=== PATIENT | male | born 1945 | race Caucasian/White ===

== ENCOUNTER 2021-02-06 16:11 | Emergency (ER) | payer MEDICARE ==
[2021-02-06 16:21] VITALS: RESP 18
[2021-02-06] MEDS ORDERED: ACETAMINOPHEN TAB 325 MG TAB PO STA (16:32)
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
[2021-02-06] MEDS ORDERED: SODIUM CHLORIDE 0.9% 500 ML 500 ML IV ONE (17:57)
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
--- NOTE | 2021-02-06 18:37 | XR ---
EXAMINATION TYPE: XR chest 2V DATE OF EXAM: 02/06/2021 COMPARISON: NONE HISTORY: Altered mental status TECHNIQUE: 2 views FINDINGS: Heart and mediastinum are normal. Lungs are clear. Diaphragm is normal. Bony thorax is inta ct. There is left axillary pacemaker. There are sternal wires. IMPRESSION: No active cardiopulmonary disease.
[2021-02-06 18:44] LABS: Partial Thromboplastin Time 24.8 sec (22.0-30.0); Prothrombin Time 10.3 sec (9.0-12.0)
[2021-02-06 18:58] LABS: ALT <6 U/L (4-49); AST 14 U/L (17-59); African American GFR (CKD) >90 (>60 ml/min/1.73 sqM); Albumin 3.7 g/dL (3.5-5.0); Alkaline Phosphatase 80 U/L (38-126); Anion Gap 7 mmol/L; Blood Urea Nitrogen 16 mg/dL (9-20); Calcium 9.1 mg/dL (8.4-10.2); Carbon Dioxide 27 mmol/L (22-30); Chloride 103 mmol/L (98-107); Glucose 117 mg/dL (74-99); Non-African American GFR(CKD) 89 (>60 ml/min/1.73 sqM); Potassium 4.2 mmol/L (3.5-5.1); Sodium 137 mmol/L (137-145); Total Bilirubin 0.2 mg/dL (0.2-1.3); Total Protein 5.9 g/dL (6.3-8.2)
[2021-02-06 19:01] LABS: Basophils # (A) 0.1 k/uL (0-0.2); Basophils % (A) 1 %; Eosinophils % (A) 1 %; HCT 36.9 % (39.0-53.0); HGB 11.9 gm/dL (13.0-17.5); Lymphocytes # (A) 0.6 k/uL (1.0-4.8); Lymphocytes % (A) 11 %; MCH 30.7 pg (25.0-35.0); MCHC 32.2 g/dL (31.0-37.0); MCV 95.4 fL (80.0-100.0); Mean Platelet Volume 7.1; Monocytes # (A) 0.2 k/uL (0-1.0); Monocytes % (A) 4 %; Neutrophils # (A) 4.6 k/uL (1.3-7.7); Neutrophils % (A) 81 %; Platelet Count 215 k/uL (150-450); RBC 3.87 m/uL (4.30-5.90); RDW 12.8 % (11.5-15.5); WBC 5.6 k/uL (3.8-10.6)
[2021-02-06] MEDS ORDERED: MORPHINE SULFATE 2 MG/ML SYRINGE IVP STA (19:38)
[2021-02-06 20:26] LABS: Appearance,Urine Clear (Clear); Bilirubin,Urine Negative (Negative); Blood,Urine Negative (Negative); Color,Urine Yellow; Glucose,Urine (UA) Negative (Negative); Ketones,Urine Trace (Negative); Leukocyte Esterase,Urine Negative (Negative); Nitrite,Urine Negative (Negative); PH, Urine 6.5 (5.0-8.0); Protein,Urine Negative (Negative); Specific Gravity,Urine 1.017 (1.001-1.035); Urobilinogen,Urine <2.0 mg/dL (<2.0)
[2021-02-06 21:32] VITALS: BP 112/74; PULSE 69; TEMP 98.3
== END 2021-02-06 21:25 | disposition home or self-care (01) ==
LOC: EC 16:11
DX: S01.01XA Laceration without foreign body of scalp, initial encounter (principal); E11.9 Type 2 diabetes mellitus without complications; I10 Essential (primary) hypertension; E78.5 Hyperlipidemia, unspecified; G30.9 Alzheimer's disease, unspecified; F02.80 Dementia in other diseases classified elsewhere, unspecified severity, without behavioral disturbance, psychotic disturbance, mood disturbance, and anxiety; F32.9 Major depressive disorder, single episode, unspecified; Z79.84 Long term (current) use of oral hypoglycemic drugs; Z79.899 Other long term (current) drug therapy; Z88.0 Allergy status to penicillin; Z88.1 Allergy status to other antibiotic agents; Z88.2 Allergy status to sulfonamides; Z88.6 Allergy status to analgesic agent; Z95.0 Presence of cardiac pacemaker; Z87.891 Personal history of nicotine dependence; W01.0XXA Fall on same level from slipping, tripping and stumbling without subsequent striking against object, initial encounter
CPT/HCPCS: 36415; 93005; 80053; 84484; 85025; 85610; 85730; 81003; 71046; 72125; 70450; 12002; 96374; 99285; J2270

== ENCOUNTER 2021-02-12 14:51 | Emergency (ER) | payer MEDICARE ==
[2021-02-12 15:09] VITALS: BP 117/68; PULSE 73; RESP 16; TEMP 97.8
[2021-02-12] MEDS ORDERED: SODIUM CHLORIDE 0.9% 1,000 ML IV STA (15:37)
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
[2021-02-12 17:01] LABS: Basophils # (A) 0.1 k/uL (0-0.2); Basophils % (A) 1 %; Eosinophils # (A) 0.1 k/uL (0-0.7); Eosinophils % (A) 2 %; HCT 42.9 % (39.0-53.0); HGB 13.6 gm/dL (13.0-17.5); Lymphocytes % (A) 21 %; MCH 29.8 pg (25.0-35.0); MCHC 31.7 g/dL (31.0-37.0); MCV 93.7 fL (80.0-100.0); Mean Platelet Volume 8.1; Monocytes # (A) 0.3 k/uL (0-1.0); Monocytes % (A) 5 %; Neutrophils # (A) 3.6 k/uL (1.3-7.7); Neutrophils % (A) 71 %; Platelet Count 284 k/uL (150-450); RBC 4.58 m/uL (4.30-5.90); RDW 12.3 % (11.5-15.5); WBC 5.1 k/uL (3.8-10.6)
[2021-02-12 17:12] LABS: ALT <6 U/L (4-49); AST 14 U/L (17-59); African American GFR (CKD) >90 (>60 ml/min/1.73 sqM); Albumin 3.9 g/dL (3.5-5.0); Alkaline Phosphatase 84 U/L (38-126); Anion Gap 5 mmol/L; Blood Urea Nitrogen 14 mg/dL (9-20); Calcium 9.2 mg/dL (8.4-10.2); Carbon Dioxide 28 mmol/L (22-30); Chloride 106 mmol/L (98-107); Glucose 151 mg/dL (74-99); Non-African American GFR(CKD) 89 (>60 ml/min/1.73 sqM); Potassium 4.2 mmol/L (3.5-5.1); Sodium 139 mmol/L (137-145); Total Bilirubin 0.1 mg/dL (0.2-1.3); Total Protein 6.3 g/dL (6.3-8.2)
--- NOTE | 2021-02-12 17:39 | CT ---
EXAMINATION TYPE: CT brain francineine wo con DATE OF EXAM: 02/12/2021 COMPARISON: 02/06/2021 HISTORY: Recurrent falls. CT DLP: 1261.2 mGycm Automated exposure control for dose reduction was used. There is cerebral cortical atrophy. There is no mass effect nor midline shift. There is no sign of in tracranial hemorrhage. The calvarium is intact. There are skin lucio in the posterior scalp. Cervical vertebra show some straightening. There is degenerative disc space narrowing and spur format ion from C3 to C7. There is vertebroplasty at T1 and T2 vertebra. There is no significant loss of hei ght. Facet joints are intact. Prevertebral soft tissues are intact. IMPRESSION: Cerebral atrophy. No acute intracranial abnormality. No change compared to recent exam. Cervical multilevel spondylotic changes. No fracture. No change compared to old exam.
--- NOTE | 2021-02-12 17:44 | XR ---
EXAMINATION TYPE: XR ribs RT w pa chest xray DATE OF EXAM: 02/12/2021 COMPARISON: 02/06/2021 HISTORY: Fall. Pain. TECHNIQUE: 5 views FINDINGS: There is no heart failure nor confluent pneumonic infiltrate. Costophrenic angles are clear . There are no hilar masses. There is left axillary pacemaker. There are sternal wires. There is no pleural effusion or pneumothorax. There is nondisplaced fracture lateral right ninth rib. IMPRESSION: No active cardiopulmonary disease. There is an acute fracture lateral right ninth rib.
[2021-02-12] MEDS ORDERED: LIDOCAINE 5% PATCH TOPICAL STA (17:53)
[2021-02-12] MEDS ORDERED: MORPHINE SULFATE 4 MG/ML SYRINGE IVP STA (18:10)
== END 2021-02-12 19:45 | disposition home or self-care (01) ==
LOC: EC 14:51
DX: S22.31XA Fracture of one rib, right side, initial encounter for closed fracture (principal); R29.6 Repeated falls; I10 Essential (primary) hypertension; E11.9 Type 2 diabetes mellitus without complications; E78.5 Hyperlipidemia, unspecified; F03.90 Unspecified dementia, unspecified severity, without behavioral disturbance, psychotic disturbance, mood disturbance, and anxiety; F32.9 Major depressive disorder, single episode, unspecified; G89.29 Other chronic pain; Z79.899 Other long term (current) drug therapy; Z87.891 Personal history of nicotine dependence; Z88.0 Allergy status to penicillin; Z88.1 Allergy status to other antibiotic agents; Z88.2 Allergy status to sulfonamides; Z88.6 Allergy status to analgesic agent; Z95.0 Presence of cardiac pacemaker; W18.30XA Fall on same level, unspecified, initial encounter; Y92.002 Bathroom of unspecified non-institutional (private) residence as the place of occurrence of the external cause
CPT/HCPCS: 93005; 80053; 84484; 85025; 71101; 72125; 70450; 99284; 96374; 96361 ×3; J2270

== ENCOUNTER 2021-04-04 17:33 | Observation (INO) | payer MEDICARE ==
[2021-04-04 17:47] LABS: Glucose,Whole Blood 143 mg/dL (75-99)
[2021-04-04] MEDS: SODIUM CHLORIDE 0.9% 500 ML 500 ML IV SCH ×2 (18:16→19:00)
[2021-04-04 18:23] LABS: Appearance,Urine Clear (Clear); Bilirubin,Urine Negative (Negative); Blood,Urine Trace (Negative); Color,Urine Yellow; Glucose,Urine (UA) Negative (Negative); Ketones,Urine 2+ (Negative); Leukocyte Esterase,Urine Negative (Negative); Mucus,Urine Many /hpf; Nitrite,Urine Negative (Negative); PH, Urine 5.5 (5.0-8.0); Protein,Urine 1+ (Negative); RBC,Urine <1 /hpf (0-5); Specific Gravity,Urine 1.025 (1.001-1.035); WBC,Urine 2 /hpf (0-5)
[2021-04-04 18:24] LABS: Chloride 109 mmol/L (98-107)
[2021-04-04 18:27] LABS: ALT 8 U/L (4-49); AST 24 U/L (17-59); African American GFR (CKD) >90 (>60 ml/min/1.73 sqM); Albumin 4.5 g/dL (3.5-5.0); Alkaline Phosphatase 113 U/L (38-126); Anion Gap 15 mmol/L; Blood Urea Nitrogen 19 mg/dL (9-20); Calcium 9.7 mg/dL (8.4-10.2); Carbon Dioxide 17 mmol/L (22-30); Glucose 151 mg/dL (74-99); Non-African American GFR(CKD) 87 (>60 ml/min/1.73 sqM); Potassium 4.3 mmol/L (3.5-5.1); Sodium 141 mmol/L (137-145); Total Bilirubin 0.8 mg/dL (0.2-1.3); Total Protein 7.1 g/dL (6.3-8.2)
[2021-04-04 18:30] LABS: Partial Thromboplastin Time 23.9 sec (22.0-30.0); Prothrombin Time 10.9 sec (9.0-12.0)
[2021-04-04 18:57] LABS: Basophils % (A) 1 %; Eosinophils % (A) 0 %; HCT 43.3 % (39.0-53.0); HGB 14.3 gm/dL (13.0-17.5); Lymphocytes # (A) 0.7 k/uL (1.0-4.8); Lymphocytes % (A) 9 %; MCH 28.7 pg (25.0-35.0); Mean Platelet Volume 7.8; Monocytes # (A) 0.3 k/uL (0-1.0); Monocytes % (A) 4 %; Neutrophils # (A) 6.9 k/uL (1.3-7.7); Neutrophils % (A) 86 %; Platelet Count 288 k/uL (150-450); RBC 4.99 m/uL (4.30-5.90); RDW 13.8 % (11.5-15.5)
[2021-04-04 18:58] LABS: MCV 86.9 fL (80.0-100.0)
--- NOTE | 2021-04-04 18:59 | XR ---
EXAMINATION TYPE: XR chest 2V DATE OF EXAM: 04/04/2021 COMPARISON: 02/12/2021 HISTORY: Fever TECHNIQUE: 3 views FINDINGS: Heart is normal. Lungs are clear of infiltrate. There are sternal wires. There is left axil jovi pacemaker. There is no evidence of pleural effusion. Bony thorax is intact IMPRESSION: No active cardiopulmonary disease. No adverse change.
--- NOTE | 2021-04-04 19:50 | ED ---
General Adult HPI - General Chief complaint: Altered Mental Status Stated complaint: Altered Mental Status Time Seen by Provider: 04/04/21 17:40 Source: EMS, RN notes reviewed, old records reviewed Mode of arrival: EMS Limitations: altered mental status - History of Present Illness Initial comments: This is a 76-year-old male who comes emergency Department and is unable to give us any history and there is no family member or caregiver with the patient. He was sent in by family according to the report received because he is more altered and more confused than his baseline. According to report his is normally confused but he seems to be worse to family today. There is no report of any fever or difficulty breathing there's no report of any vomiting or diarrhea. No report of any injury or trauma. - Related Data Home Medications Medication Instructions Recorded Confirmed Atorvastatin [Lipitor] 10 mg PO HS 02/06/21 04/04/21 FLUoxetine HCL [PROzac] 20 mg PO DAILY 02/06/21 04/04/21 Omeprazole [PriLOSEC] 20 mg PO BID PRN 02/06/21 04/04/21 Tamsulosin HCl [Flomax] 0.4 mg PO DAILY 02/06/21 04/04/21 busPIRone HCL 15 mg PO BID 02/06/21 04/04/21 methocarbamoL [Methocarbamol] 750 mg PO TID PRN 02/06/21 04/04/21 Ondansetron HCl [Zofran] 4 mg PO Q8H PRN 02/12/21 04/04/21 Buprenorphine [Butrans 15 MCG/HR] 1 patch TRANSDERM Q7D 04/04/21 04/04/21 QUEtiapine [SEROquel] 50 mg PO HS 04/04/21 04/04/21 oxyCODONE-APAP 5-325MG [Percocet 1 tab PO Q6HR 04/04/21 04/04/21 5-325 mg] traZODone HCL [Desyrel] 50 mg PO HS 04/04/21 04/04/21 Allergies Allergy/AdvReac Type Severity Reaction Status Date / Time celecoxib [From Celebrex] Allergy Unknown Verified 04/04/21 20:00 erythromycin base Allergy Unknown Verified 04/04/21 20:00 iron Allergy Unknown Verified 04/04/21 20:00 nitroglycerin Allergy Unknown Verified 04/04/21 20:00 [From Nitro-Bid] penicillin G benethamine Allergy Unknown Verified 04/04/21 20:00 pentazocine [From Talwin] Allergy Unknown Verified 04/04/21 20:00 sulfamethoxazole Allergy Unknown Verified 04/04/21 20:00 [From Bactrim] trimethoprim [From Bactrim] Allergy Unknown Verified 04/04/21 20:00 Review of Systems ROS Statement: Those systems with pertinent positive or pertinent negative responses have been documented in the HPI. ROS Other: All systems not noted in ROS Statement are negative. Past Medical History Past Medical History: Dementia, Diabetes Mellitus, Hyperlipidemia, Hypertension Additional Past Medical History / Comment(s): back pain History of Any Multi-Drug Resistant Organisms: None Reported Past Surgical History: Back Surgery, Cholecystectomy, Pacemaker Past Psychological History: Depression Smoking Status: Former smoker Past Alcohol Use History: None Reported Past Drug Use History: None Reported General Exam - General Exam Comments Initial Comments: GENERAL: Patient is well-developed and well-nourished. Patient is nontoxic and well- hydrated and is in no acute. ENT: Neck is soft and supple. No significant lymphadenopathy is noted. Oropharynx is clear. Moist mucous membranes. Neck has full range of motion without elicit ing any pain. EYES: The sclera were anicteric and conjunctiva were pink and moist. Extraocular m ovements were intact and pupils were equal round and reactive to light. Eyelids were unremarkable. PULMONARY: Unlabored respirations. Good breath sounds bilaterally. No audible rales rhonchi or wheezing was noted. CARDIOVASCULAR: There is a regular rate and rhythm without any murmurs gallops or rubs. ABDOMEN: Soft and nontender with normal bowel sounds. SKIN: Skin is clear with no lesions or rashes and otherwise unremarkable. NEUROLOGIC: Patient is alert and oriented 1. Cranial nerves II through XII are grossly intact. MUSCULOSKELETAL: Normal extremities with adequate strength and full range of motion. LYMPHATICS: No significant lymphadenopathy is noted PSYCHIATRIC: Unable to assess Limitations: altered mental status Course Vital Signs 04/04/21 04/04/21 04/04/21 17:36 19:00 20:00 Temperature 99 F 98.2 F Pulse Rate 74 97 72 Respiratory 18 18 18 Rate Blood Pressure 139/98 144/95 132/84 O2 Sat by Pulse 95 97 97 Oximetry Medical Decision Making - Medical Decision Making Patient's EKG shows sinus rhythm with occasional PVC at 76 bpm PA interval 230 QRS is 72 QT interval 392 QTC is 441. Patient's EKG shows no ST segment elevation or depression. Dr. yusuf agreed to admit the patient admitted the patient wrote admitting orders. No family ever arrived or called in to give us any further history. - Lab Data Result diagrams: 04/04/21 18:04 04/04/21 18:04 Lab Results 04/04/21 04/04/21 04/04/21 Range/Units 17:47 18:04 18:04 WBC 8.0 (3.8-10.6) k/uL RBC 4.99 (4.30-5.90) m/uL Hgb 14.3 (13.0-17.5) gm/dL Hct 43.3 (39.0-53.0) % MCV 86.9 D (80.0-100.0) fL MCH 28.7 (25.0-35.0) pg MCHC 33.0 (31.0-37.0) g/dL RDW 13.8 (11.5-15.5) % Plt Count 288 (150-450) k/uL MPV 7.8 Neutrophils % 86 % Lymphocytes % 9 % Monocytes % 4 % Eosinophils % 0 % Basophils % 1 % Neutrophils # 6.9 (1.3-7.7) k/uL Lymphocytes # 0.7 L (1.0-4.8) k/uL Monocytes # 0.3 (0-1.0) k/uL Eosinophils # 0.0 (0-0.7) k/uL Basophils # 0.0 (0-0.2) k/uL PT 10.9 (9.0-12.0) sec INR 1.0 (<1.2) APTT 23.9 (22.0-30.0) sec Sodium (137-145) mmol/L Potassium (3.5-5.1) mmol/L Chloride (98-107) mmol/L Carbon Dioxide (22-30) mmol/L Anion Gap mmol/L BUN (9-20) mg/dL Creatinine (0.66-1.25) mg/dL Est GFR (CKD-EPI)AfAm (>60 ml/min/1.73 sqM) Est GFR (CKD-EPI)NonAf (>60 ml/min/1.73 sqM) Glucose (74-99) mg/dL POC Glucose (mg/dL) 143 H (75-99) mg/dL POC Glu [employer] Management Intern Waleska Douglas Plasma Lactic Acid Robbie (0.7-2.0) mmol/L Calcium (8.4-10.2) mg/dL Total Bilirubin (0.2-1.3) mg/dL AST (17-59) U/L ALT (4-49) U/L Alkaline Phosphatase (38-126) U/L Total Protein (6.3-8.2) g/dL Albumin (3.5-5.0) g/dL Urine Color Urine Appearance (Clear) Urine pH (5.0-8.0) Ur Specific [place] (1.001-1.035) Urine Protein (Negative) Urine Glucose (UA) (Negative) Urine Ketones (Negative) Urine Blood (Negative) Urine Nitrite (Negative) Urine Bilirubin (Negative) Urine Urobilinogen (<2.0) mg/dL Ur Leukocyte Esterase (Negative) Urine RBC (0-5) /hpf Urine WBC (0-5) /hpf Urine Mucus (None) /hpf 04/04/21 04/04/21 04/04/21 Range/Units 18:04 18:04 18:04 WBC (3.8-10.6) k/uL RBC (4.30-5.90) m/uL Hgb (13.0-17.5) gm/dL Hct (39.0-53.0) % MCV (80.0-100.0) fL MCH (25.0-35.0) pg MCHC (31.0-37.0) g/dL RDW (11.5-15.5) % Plt Count (150-450) k/uL MPV Neutrophils % % Lymphocytes % % Monocytes % % Eosinophils % % Basophils % % Neutrophils # (1.3-7.7) k/uL Lymphocytes # (1.0-4.8) k/uL Monocytes # (0-1.0) k/uL Eosinophils # (0-0.7) k/uL Basophils # (0-0.2) k/uL PT (9.0-12.0) sec INR (<1.2) APTT (22.0-30.0) sec Sodium 141 (137-145) mmol/L Potassium 4.3 (3.5-5.1) mmol/L Chloride 109 H (98-107) mmol/L Carbon Dioxide 17 L (22-30) mmol/L Anion Gap 15 mmol/L BUN 19 (9-20) mg/dL Creatinine 0.80 (0.66-1.25) mg/dL Est GFR (CKD-EPI)AfAm >90 (>60 ml/min/1.73 sqM) Est GFR (CKD-EPI)NonAf 87 (>60 ml/min/1.73 sqM) Glucose 151 H (74-99) mg/dL POC Glucose (mg/dL) (75-99) mg/dL POC Glu Sports Management Intern ID Plasma Lactic Acid Robbie 1.8 (0.7-2.0) mmol/L Calcium 9.7 (8.4-10.2) mg/dL Total Bilirubin 0.8 (0.2-1.3) mg/dL AST 24 (17-59) U/L ALT 8 (4-49) U/L Alkaline Phosphatase 113 (38-126) U/L Total Protein 7.1 (6.3-8.2) g/dL Albumin 4.5 (3.5-5.0) g/dL Urine Color Yellow Urine Appearance Clear (Clear) Urine pH 5.5 (5.0-8.0) Ur Specific [place] 1.025 (1.001-1.035) Urine Protein 1+ H (Negative) Urine Glucose (UA) Negative (Negative) Urine Ketones 2+ H (Negative) Urine Blood Trace H (Negative) Urine Nitrite Negative (Negative) Urine Bilirubin Negative (Negative) Urine Urobilinogen 2.0 (<2.0) mg/dL Ur Leukocyte Esterase Negative (Negative) Urine RBC <1 (0-5) /hpf Urine WBC 2 (0-5) /hpf Urine Mucus Many H (None) /hpf Disposition Clinical Impression: Altered mental status Disposition: ADMITTED IP TO THIS [facility] Referrals: Elias Cai DO [Primary Care Provider] - 1-2 days Time of Disposition: 20:34
--- NOTE | 2021-04-04 20:01 | CT ---
EXAMINATION TYPE: CT brain wo con DATE OF EXAM: 04/04/2021 COMPARISON: 02/12/2021 HISTORY: Recurrent falls. Altered mental status. CT DLP: 1141.4 mGycm Automated exposure control for dose reduction was used. There is cerebral cortical atrophy. There is no mass effect nor midline shift. There is no sign of in tracranial hemorrhage. Calvarium is intact. The skull base is intact. There is normal aeration of the mastoid sinuses. IMPRESSION: Cerebral atrophy. No acute intracranial abnormality.
[2021-04-04] MEDS ORDERED: SODIUM CHLORIDE 0.9% 1,000 ML IV ONE (20:34)
[2021-04-04 21:50] LABS: Glucose,Whole Blood 116 mg/dL (75-99)
[2021-04-04] MEDS: INSULIN ASPART (NovoLOG) 100 UNIT/ML VIAL SQ SCH (21:50)
[2021-04-04] MEDS ORDERED: NON FORMULARY DRUG (Buprenorphine [Butrans 15 Mcg/Hr] 15 MCG/HOUR Patch) TRANSDERM SCH (23:15)
[2021-04-05] MEDS: QUEtiapine 50 MG TAB PO SCH ×2 (00:06→21:26)
[2021-04-05 07:23] LABS: Glucose,Whole Blood 106 mg/dL (75-99)
[2021-04-05] MEDS: INSULIN ASPART (NovoLOG) 100 UNIT/ML VIAL SQ SCH ×4 (08:06→21:25)
[2021-04-05] MEDS: FLUoxetine HCL 20 MG CAP PO SCH (08:39)
[2021-04-05] MEDS: busPIRone HCl 5 MG TAB PO SCH ×2 (08:39→21:26)
[2021-04-05] MEDS: TAMSULOSIN 0.4 MG CAP.ER.24H PO SCH (08:39)
[2021-04-05] MEDS ORDERED: PANTOPRAZOLE 40 MG TABLET PO PRN (11:19)
[2021-04-05 11:49] LABS: Glucose,Whole Blood 116 mg/dL (75-99)
--- NOTE | 2021-04-05 11:54 | P.HPIM ---
History of Present Illness Patient is a 69-year-old the male was brought in by family members because of altered mental status and confusion. Patient is alert oriented 1. Patient is significantly confused. Was also having visual hallucinations. Patient is on multiple medications that can cause confusion including opiates Percocet, Seroquel, trazodone, methocarbamol) or phone. Patient's Percocet was discontinued last night without any signs or symptoms of opiate withdrawal are also discontinue off on trazodone as well. There is no evidence of infection at this time patient doesn't have any leukocytosis no fever urinalysis is not significant for infection chest x-ray did not show any pneumonia. Patient was comparing of pain between the shoulder blades and upon palpation patient does have right upper quadrant tenderness because of which I'll obtain ultrasound of the liver, liver enzymes are essentially within normal limits. REVIEW OF SYSTEMS: Not a reliable historian because of his confusion, rest of the review of systems all negative except those mentioned above PHYSICAL EXAMINATION: GENERAL: The patient is alert and oriented x1, not in any acute distress. Well developed, well nourished. HEENT: Pupils are round and equally reacting to light. EOMI. No scleral icterus. No conjunctival pallor. Normocephalic, atraumatic. No pharyngeal erythema. No thyromegaly. CARDIOVASCULAR: S1 and S2 present. No murmurs, rubs, or gallops. PULMONARY: Chest is clear to auscultation, no wheezing or crackles. ABDOMEN: Soft, mild tenderness in the right upper quadrant nondistended, normoactive bowel sounds. No palpable organomegaly. MUSCULOSKELETAL: No joint swelling or deformity. EXTREMITIES: No cyanosis, clubbing, or pedal edema. NEUROLOGICAL: Confused, limited, Gross neurological examination did not reveal any focal deficits. SKIN: No rashes. Assessment and plan 1 altered mental status secondary toxic encephalopathy from multiple medications those medications were discontinued will watch for any opiate withdrawals. Opiate withdrawals are not life-threatening because of which I'm this can urine opiates at this time. Patient will be started on Toradol for pain patient is also on GI prophylaxis -Hyperlipidemia -Benign prostatic hypertrophy -Right upper quadrant abdominal pain we'll obtain ultrasound of the gallbladder to rule out any cholelithiasis -Depression DVT prophylaxis: Lovenox Past Medical History Past Medical History: Dementia, Diabetes Mellitus, Hyperlipidemia, Hypertension Additional Past Medical History / Comment(s): back pain History of Any Multi-Drug Resistant Organisms: None Reported Past Surgical History: Back Surgery, Cholecystectomy, Pacemaker Additional Past Surgical History / Comment(s): right hand surgery from work injury, samiraaker in 2018 Past Anesthesia/Blood Transfusion Reactions: No Reported Reaction Type of Cardiac Device: Permanent Pacemaker Device Placement Date:: 2017 Past Psychological History: Anxiety, Depression Smoking Status: Former smoker Past Alcohol Use History: None Reported Past Drug Use History: Marijuana Additional Drug Use History / Comment(s): marijuana 2 gummies daily or bid (20- 40mg daily) Medications and Allergies Home Medications Medication Instructions Recorded Confirmed Type Atorvastatin [Lipitor] 10 mg PO HS 02/06/21 04/04/21 History FLUoxetine HCL [PROzac] 20 mg PO DAILY 02/06/21 04/04/21 History Omeprazole [PriLOSEC] 20 mg PO BID PRN 02/06/21 04/04/21 History Tamsulosin HCl [Flomax] 0.4 mg PO DAILY 02/06/21 04/04/21 History busPIRone HCL 15 mg PO BID 02/06/21 04/04/21 History methocarbamoL [Methocarbamol] 750 mg PO TID PRN 02/06/21 04/04/21 History Ondansetron HCl [Zofran] 4 mg PO Q8H PRN 02/12/21 04/04/21 History Buprenorphine [Butrans 15 MCG/HR] 1 patch TRANSDERM Q7D 04/04/21 04/04/21 History QUEtiapine [SEROquel] 50 mg PO HS 04/04/21 04/04/21 History oxyCODONE-APAP 5-325MG [Percocet 1 tab PO Q6HR 04/04/21 04/04/21 History 5-325 mg] traZODone HCL [Desyrel] 50 mg PO HS 04/04/21 04/04/21 History Allergies Allergy/AdvReac Type Severity Reaction Status Date / Time celecoxib [From Celebrex] Allergy Unknown Verified 04/04/21 20:00 erythromycin base Allergy Unknown Verified 04/04/21 20:00 iron Allergy Unknown Verified 04/04/21 20:00 nitroglycerin Allergy Unknown Verified 04/04/21 20:00 [From Nitro-Bid] penicillin G benethamine Allergy Unknown Verified 04/04/21 20:00 pentazocine [From Talwin] Allergy Unknown Verified 04/04/21 20:00 sulfamethoxazole Allergy Unknown Verified 04/04/21 20:00 [From Bactrim] trimethoprim [From Bactrim] Allergy Unknown Verified 04/04/21 20:00 Physical Exam Vitals: Vital Signs Temp Pulse Pulse Resp BP BP Pulse Ox 04/05/21 08:16 97.9 F 64 18 136/67 100 04/05/21 02:00 97.0 F L 61 18 131/72 98 04/04/21 23:23 97.7 F 73 20 149/79 97 04/04/21 22:25 99.3 F 87 20 137/77 96 04/04/21 21:00 87 18 137/71 99 04/04/21 20:00 98.2 F 72 18 132/84 97 04/04/21 19:00 97 18 144/95 97 04/04/21 17:36 99 F 74 18 139/98 95 Intake and Output 04/04/21 04/05/21 04/05/21 22:59 06:59 14:59 Intake Total 200 Output Total 35 Balance -35 200 Intake: Oral 200 Output: Urine 35 Straight 35 Other: # Voids 2 # Bowel Movements 1 Weight 55.474 kg 55.474 kg Results CBC & Chem 7: 04/04/21 18:04 04/04/21 18:04 Labs: Abnormal Lab Results - Last 24 Hours (Table) 04/04/21 04/04/21 04/04/21 Range/Units 17:47 18:04 18:04 Lymphocytes # 0.7 L (1.0-4.8) k/uL Chloride (98-107) mmol/L Carbon Dioxide (22-30) mmol/L Glucose (74-99) mg/dL POC Glucose (mg/dL) 143 H (75-99) mg/dL Urine Protein 1+ H (Negative) Urine Ketones 2+ H (Negative) Urine Blood Trace H (Negative) Urine Mucus Many H (None) /hpf 04/04/21 04/04/21 04/05/21 Range/Units 18:04 21:48 07:20 Lymphocytes # (1.0-4.8) k/uL Chloride 109 H (98-107) mmol/L Carbon Dioxide 17 L (22-30) mmol/L Glucose 151 H (74-99) mg/dL POC Glucose (mg/dL) 116 H 106 H (75-99) mg/dL Urine Protein (Negative) Urine Ketones (Negative) Urine Blood (Negative) Urine Mucus (None) /hpf 04/05/21 Range/Units 11:36 Lymphocytes # (1.0-4.8) k/uL Chloride (98-107) mmol/L Carbon Dioxide (22-30) mmol/L Glucose (74-99) mg/dL POC Glucose (mg/dL) 116 H (75-99) mg/dL Urine Protein (Negative) Urine Ketones (Negative) Urine Blood (Negative) Urine Mucus (None) /hpf Thrombosis Risk Factor Assmnt - Choose All That Apply Each Risk Factor Represents 3 Points: Age 75 years or older Thrombosis Risk Factor Assessment Total Risk Factor Score: 3 Thrombosis Risk Factor Assessment Level: Moderate Risk
[2021-04-05] MEDS: KETOROLAC 15 MG/ML 1 ML VIAL IVP PRN (13:45)
--- NOTE | 2021-04-05 15:10 | US ---
EXAMINATION TYPE: US gallbladder DATE OF EXAM: 04/05/2021 COMPARISON: NONE CLINICAL HISTORY: pain ruq. patient states history of kidney stones. Abdominal pain EXAM MEASUREMENTS: Liver Length: 12.7 cm CBD: 0.5 cm Right Kidney: 9.4 x 4.6 x 4.4 cm *technical limitations due to large amount of overlying bowel content Pancreas: Obscured by bowel gas Liver: limited evaluation, only seen intercostally Gallbladder: unable to visualize Evidence for sonographic Jernigan's sign: no CBD: wnl Right Kidney: probable cystic areas, largest = 2.6 x 3.5 x 2.4cm Suboptimal evaluation of pancreas on initial images due to shadowing from overlying bowel gas. Visual ized liver shows no worrisome mass. Entire liver could not be imaged due to high positioning in the l ower thorax. Gallbladder not distinctly visualized. No intrahepatic or extrahepatic biliary dilatatio n noted. Cortical thinning right kidney with 1.5 cm round anechoic to hypoechoic lesion favoring simp le thin-walled cyst. Additional oval hypoechoic anechoic 2.6 x 3.5 cm lesion noted favoring thin-wall ed cyst. No gross right-sided hydronephrosis. IMPRESSION: Suboptimal study. No biliary dilatation noted. If concern for acute cholecystitis persis ts further investigation with HIDA scan may be warranted.
[2021-04-05 17:15] LABS: Glucose,Whole Blood 91 mg/dL (75-99)
[2021-04-05] MEDS ORDERED: MORPHINE SULFATE 4 MG/ML SYRINGE IVP STA (19:42)
[2021-04-05 20:16] LABS: Glucose,Whole Blood 135 mg/dL (75-99)
[2021-04-05] MEDS: ATORVASTATIN 10 MG TAB PO SCH (21:26)
[2021-04-06] MEDS: KETOROLAC 15 MG/ML 1 ML VIAL IVP PRN ×3 (04:45→18:04)
[2021-04-06 07:25] LABS: Glucose,Whole Blood 85 mg/dL (75-99)
[2021-04-06] MEDS: INSULIN ASPART (NovoLOG) 100 UNIT/ML VIAL SQ SCH ×4 (07:33→23:13)
[2021-04-06] MEDS: busPIRone HCl 5 MG TAB PO SCH ×2 (08:11→21:01)
[2021-04-06] MEDS: FLUoxetine HCL 20 MG CAP PO SCH (08:11)
[2021-04-06] MEDS: TAMSULOSIN 0.4 MG CAP.ER.24H PO SCH ×2 (08:11→21:01)
[2021-04-06 11:57] LABS: Glucose,Whole Blood 156 mg/dL (75-99)
[2021-04-06 14:26] VITALS: BMI 19.1
[2021-04-06 17:37] LABS: Glucose,Whole Blood 110 mg/dL (75-99)
[2021-04-06 20:29] LABS: Glucose,Whole Blood 122 mg/dL (75-99)
--- NOTE | 2021-04-06 20:50 | PN ---
PROGRESS NOTE DATE OF SERVICE: 04/06/2021. This 76-year-old gentleman who was admitted with change in mental status, thought to be multifactorial, is being closely monitored. Medication has been adjusted at this time. The patient also had a gallbladder ultrasound today which showed no biliary dilatation, but suboptimal. No chest pain. No palpitations. No fever. PHYSICAL EXAMINATION: Alert and oriented x2. Pulse 90, blood pressure 131/74, respiration 18, temperature 97.8, pulse ox 99% on room air. HEENT: Conjunctivae normal. NECK: No jugular venous distention. CARDIOVASCULAR: S1, S2 muffled. RESPIRATION: Breath sounds diminished at the bases. A few scattered rhonchi. ABDOMEN: Soft, non-tender. LEGS: No edema. No swelling. NERVOUS SYSTEM: No focal deficit. LABS: CO2 is 17. UA noted. CT of the brain shows cerebral atrophy. ASSESSMENT: 1. Change in mental status, acute metabolic encephalopathy, multifactorial, possibly medication-induced. 2. Hyperlipidemia. 3. Benign prostatic hypertrophy. 4. Right upper quadrant abdominal pain. 5. Depression. 6. Elevated random glucose. RECOMMENDATIONS AND DISCUSSION: In this 76-year-old gentleman who presented with multiple complex medical issues, we will monitor the patient closely, continue the current medications, continue symptomatic treatment. Adjust the medications further. Guarded prognosis. Further recommendations to follow. PT/OT evaluation. MMDUSTINL / YAEL: [id number] /
[2021-04-06] MEDS: ATORVASTATIN 10 MG TAB PO SCH (21:01)
[2021-04-06] MEDS: QUEtiapine 50 MG TAB PO SCH (21:01)
[2021-04-07] MEDS: KETOROLAC 15 MG/ML 1 ML VIAL IVP PRN ×3 (05:26→20:09)
[2021-04-07 06:55] LABS: Basophils % (A) 1 %; Eosinophils # (A) 0.2 k/uL (0-0.7); Eosinophils % (A) 4 %; HCT 33.5 % (39.0-53.0); Lymphocytes # (A) 1.6 k/uL (1.0-4.8); Lymphocytes % (A) 32 %; MCH 29.1 pg (25.0-35.0); MCHC 32.6 g/dL (31.0-37.0); MCV 89.2 fL (80.0-100.0); Mean Platelet Volume 7.8; Monocytes # (A) 0.3 k/uL (0-1.0); Monocytes % (A) 5 %; Neutrophils # (A) 2.8 k/uL (1.3-7.7); Neutrophils % (A) 56 %; Platelet Count 207 k/uL (150-450); RBC 3.75 m/uL (4.30-5.90); RDW 13.9 % (11.5-15.5)
[2021-04-07 07:05] LABS: HGB 10.9 gm/dL (13.0-17.5)
[2021-04-07 07:22] LABS: Glucose,Whole Blood 95 mg/dL (75-99)
[2021-04-07] MEDS: INSULIN ASPART (NovoLOG) 100 UNIT/ML VIAL SQ SCH ×4 (08:34→21:00)
[2021-04-07] MEDS: busPIRone HCl 5 MG TAB PO SCH ×2 (09:23→20:16)
[2021-04-07] MEDS: TAMSULOSIN 0.4 MG CAP.ER.24H PO SCH ×2 (09:23→20:16)
[2021-04-07] MEDS: FLUoxetine HCL 20 MG CAP PO SCH (09:23)
[2021-04-07 10:59] LABS: African American GFR (CKD) 95.1 (60.0-200.0); Anion Gap 9.1 mmol/L (4.00-12.00); BUN/Creat Ratio 24.44 Ratio (12.00-20.00); Calcium 8.3 mg/dL (8.7-10.3); Carbon Dioxide 21.9 mmol/L (21.6-31.8); Non-African American GFR(CKD) 82.1 (60.0-200.0); Potassium 4.1 mmol/L (3.5-5.5)
[2021-04-07 11:41] LABS: Glucose,Whole Blood 122 mg/dL (75-99)
[2021-04-07] MEDS: traMADol 50 MG TAB PO PRN ×2 (12:41→20:12)
[2021-04-07 17:16] LABS: Glucose,Whole Blood 109 mg/dL (75-99)
--- NOTE | 2021-04-07 19:23 | PN ---
PROGRESS NOTE DATE OF SERVICE: 04/07/2021 This is a 76-year-old gentleman admitted with change in mental status and acute metabolic insult is improving significantly. The patient has asked for more pain medication. No chest pain. No palpitations. No fever. PHYSICAL EXAMINATION: Alert and oriented x3. Pulse 70, blood pressure 123/70, respiration 17, temperature 98.1, pulse ox 97% on room air. HEENT: Conjunctivae normal. NECK: No jugular venous distention. CARDIOVASCULAR: S1, S2 muffled. RESPIRATION: Breath sounds diminished at the bases. ABDOMEN: Soft. No tenderness. NERVOUS SYSTEM: No focal deficit. LABS: WBC 10.9. Glucose noted. ASSESSMENT: 1. Change in mental status and acute metabolic encephalopathy, multifactorial, possibly medication-induced. 2. Hyperlipidemia. 3. Benign prostatic hypertrophy. 4. Right upper quadrant abdominal pain. 5. Depression. 6. Elevated random glucose. RECOMMENDATIONS AND DISCUSSION: I recommend to continue current medications, continue with symptomatic treatment. Otherwise, avoid narcotics. Continue the rest of the medications. Supplement vitamins. Guarded prognosis because of multiple complex medical issues. Further recommendations to follow. MMODL / IJN: [id number] /
[2021-04-07 19:57] LABS: Glucose,Whole Blood 91 mg/dL (75-99)
[2021-04-07] MEDS: QUEtiapine 50 MG TAB PO SCH (20:16)
[2021-04-07] MEDS: ATORVASTATIN 10 MG TAB PO SCH (20:16)
[2021-04-08 06:43] LABS: Basophils # (A) 0.1 k/uL (0-0.2); Basophils % (A) 1 %; Eosinophils # (A) 0.2 k/uL (0-0.7); Eosinophils % (A) 4 %; HCT 34.1 % (39.0-53.0); HGB 11.1 gm/dL (13.0-17.5); Lymphocytes # (A) 1.3 k/uL (1.0-4.8); Lymphocytes % (A) 29 %; MCH 29.5 pg (25.0-35.0); MCHC 32.6 g/dL (31.0-37.0); MCV 90.6 fL (80.0-100.0); Mean Platelet Volume 8.1; Monocytes # (A) 0.4 k/uL (0-1.0); Monocytes % (A) 8 %; Neutrophils # (A) 2.5 k/uL (1.3-7.7); Neutrophils % (A) 54 %; Platelet Count 183 k/uL (150-450); RBC 3.76 m/uL (4.30-5.90); RDW 13.6 % (11.5-15.5); WBC 4.5 k/uL (3.8-10.6)
[2021-04-08 07:05] LABS: Glucose,Whole Blood 85 mg/dL (75-99)
[2021-04-08] MEDS: INSULIN ASPART (NovoLOG) 100 UNIT/ML VIAL SQ SCH ×4 (07:45→20:16)
[2021-04-08] MEDS: traMADol 50 MG TAB PO PRN ×2 (07:51→20:15)
[2021-04-08] MEDS: TAMSULOSIN 0.4 MG CAP.ER.24H PO SCH ×2 (07:52→19:25)
[2021-04-08] MEDS: busPIRone HCl 5 MG TAB PO SCH ×2 (07:52→19:25)
[2021-04-08] MEDS: FLUoxetine HCL 20 MG CAP PO SCH (07:53)
[2021-04-08 11:38] LABS: Glucose,Whole Blood 114 mg/dL (75-99)
[2021-04-08 11:45] LABS: African American GFR (CKD) 95.1 (60.0-200.0); Anion Gap 5.4 mmol/L (4.00-12.00); Calcium 8.3 mg/dL (8.7-10.3); Carbon Dioxide 25.6 mmol/L (21.6-31.8); Non-African American GFR(CKD) 82.1 (60.0-200.0); Potassium 4.2 mmol/L (3.5-5.5)
[2021-04-08] MEDS: KETOROLAC 15 MG/ML 1 ML VIAL IVP PRN (12:32)
[2021-04-08 17:01] LABS: Glucose,Whole Blood 145 mg/dL (75-99)
--- NOTE | 2021-04-08 18:41 | PN ---
PROGRESS NOTE DATE OF SERVICE: 04/08/2021 This 76-year-old gentleman who was admitted with change in mental status, acute metabolic encephalopathy, multifactorial possibly medication induced. is being closely monitored. The patient is more alert. No chest pain. No palpitations. No fever. A gallbladder ultrasound was noted which was suboptimal study. PHYSICAL EXAMINATION: Alert and oriented x2. Pulse 63, blood pressure 137/60, respiration 17, temperature 98.2, pulse ox 97% on room air. HEENT: Conjunctivae normal. Oral mucosa moist. NECK: No jugular venous distention. No lymph node enlargement. CARDIOVASCULAR: S1, S2, muffled. No S3, no S4, RESPIRATORY: Diminished breath sounds at the bases. Scattered rhonchi and crackles. ABDOMEN: Soft, nontender. LEGS: No edema, no swelling. NERVOUS SYSTEM: No focal deficits. LABS: WBC 4.2, hemoglobin 11.1, sodium noted. ASSESSMENT: 1. Change in mental status, acute metabolic encephalopathy, multifactorial, possibly medication induced. 2. Hyperlipidemia. 3. Benign prostatic hypertrophy. 4. Gait dysfunction. 5. Right upper quadrant abdominal pain, improved. 6. Depression. 7. Elevated random glucose. RECOMMENDATIONS: Recommend to continue current management and symptomatic treatment. PT/OT evaluation. We will continue the current medications. Prognosis guarded. Further recommendations to follow. MMODL / IJN: [id number] /
[2021-04-08] MEDS: ATORVASTATIN 10 MG TAB PO SCH (19:25)
[2021-04-08] MEDS: QUEtiapine 50 MG TAB PO SCH (19:25)
[2021-04-08] MEDS ORDERED: ACETAMINOPHEN TAB 325 MG TAB PO PRN (20:02)
[2021-04-08 20:16] LABS: Glucose,Whole Blood 143 mg/dL (75-99)
[2021-04-09] MEDS: traMADol 50 MG TAB PO PRN ×2 (05:36→13:41)
[2021-04-09 07:28] LABS: Glucose,Whole Blood 91 mg/dL (75-99)
[2021-04-09] MEDS: INSULIN ASPART (NovoLOG) 100 UNIT/ML VIAL SQ SCH ×3 (07:38→17:49)
[2021-04-09] MEDS: TAMSULOSIN 0.4 MG CAP.ER.24H PO SCH (09:07)
[2021-04-09] MEDS: FLUoxetine HCL 20 MG CAP PO SCH (09:07)
[2021-04-09] MEDS: busPIRone HCl 5 MG TAB PO SCH (09:07)
[2021-04-09] MEDS: KETOROLAC 15 MG/ML 1 ML VIAL IVP PRN (09:15)
[2021-04-09 12:31] LABS: Glucose,Whole Blood 105 mg/dL (75-99)
[2021-04-09 13:23] VITALS: TEMP 98.6
--- NOTE | 2021-04-09 14:47 | P.DS ---
Providers Date of admission: 04/04/21 20:34 Expected date of discharge: 04/09/21 Attending physician: Scotty Yancey MD Primary care physician: Elias Cai [facility] Course: Final diagnosis Change in mental status, acute metabolic encephalopathy, multifactorial, possibly medication induced Hyperlipidemia Benign prostatic hypertrophy Gait dysfunction Right upper quadrant abdominal pain, improved Depression Elevated random glucose Discharge disposition Patient is being discharged in a stable condition with guarded prognosis to [facility] for continued PT/OT therapy. Patient will follow-up with Dr. Santos in the [facility] upon discharge. Patient will follow with his primary care provider Dr. Cai in the outpatient setting. Total time taken is greater than 35 minutes. Hospital course This is a 76-year-old male who was recently admitted with change in mental status, acute metabolic encephalopathy, multifactorial he possibly medication induced and being closely monitored. Multiple narcotic and [employer] agents have been discontinued and patient will continue on Ultram as needed and Tylenol. Patient also having some random elevated blood sugars and recommending Accu-Cheks before meals and at bedtime and continuing with consistent carb diet and follow-up in the outpatient setting. Patient continues to be weak and normally lives at home with his son although will be going to [facility] for PT/OT therapy for strength and mobility. Currently no reports of chest pain, shortness of breath, or palpitations. Patient is afebrile. No reports of nausea or vomiting and patient is tolerating diet. Patient will be going to [facility] today. On exam vital signs are stable. Cardio S1, S2 are muffled. Respiratory system shows diminished breath sounds at the bases with no wheezing or rhonchi noted. Abdomen is soft and nontender. Nervous system shows diffuse weakness. Please refer to medication reconciliation sheet for a list of medications. Patient Condition at Discharge: Stable Plan - Discharge Summary Discharge Rx Participant: Yes New Discharge Prescriptions: No Action busPIRone HCL 15 mg PO BID methocarbamoL [Methocarbamol] 750 mg PO TID PRN PRN Reason: Pain Omeprazole [PriLOSEC] 20 mg PO BID PRN PRN Reason: Gi Upset Tamsulosin HCl [Flomax] 0.4 mg PO DAILY QUEtiapine [SEROquel] 50 mg PO HS Buprenorphine [Butrans 15 MCG/HR] 1 patch TRANSDERM Q7D Atorvastatin [Lipitor] 10 mg PO HS FLUoxetine HCL [PROzac] 20 mg PO DAILY Ondansetron HCl [Zofran] 4 mg PO Q8H PRN PRN Reason: Nausea And Vomiting traZODone HCL [Desyrel] 50 mg PO HS oxyCODONE-APAP 5-325MG [Percocet 5-325 mg] 1 tab PO Q6HR Discharge Medication List Atorvastatin [Lipitor] 10 mg PO HS 02/06/21 [History] FLUoxetine HCL [PROzac] 20 mg PO DAILY 02/06/21 [History] Omeprazole [PriLOSEC] 20 mg PO BID PRN 02/06/21 [History] Tamsulosin HCl [Flomax] 0.4 mg PO DAILY 02/06/21 [History] busPIRone HCL 15 mg PO BID 02/06/21 [History] methocarbamoL [Methocarbamol] 750 mg PO TID PRN 02/06/21 [History] Ondansetron HCl [Zofran] 4 mg PO Q8H PRN 02/12/21 [History] Buprenorphine [Butrans 15 MCG/HR] 1 patch TRANSDERM Q7D 04/04/21 [History] QUEtiapine [SEROquel] 50 mg PO HS 04/04/21 [History] oxyCODONE-APAP 5-325MG [Percocet 5-325 mg] 1 tab PO Q6HR 04/04/21 [History] traZODone HCL [Desyrel] 50 mg PO HS 04/04/21 [History] Follow up Appointment(s)/Referral(s): Elias Cai DO [Primary Care Provider] - 1-2 days
[2021-04-09 16:27] VITALS: BP 155/73; PULSE 76; RESP 14
[2021-04-09] MEDS ORDERED: ALPRAZolam 0.25 MG TAB PO STA (16:41)
== END 2021-04-09 18:27 ==
LOC: EC 17:33 → 5NMEDONC 20:34
PROVIDERS: ADMIT Internal Medicine; ATTEND Internal Medicine
DX: G93.41 Metabolic encephalopathy (principal); E78.5 Hyperlipidemia, unspecified; N40.0 Benign prostatic hyperplasia without lower urinary tract symptoms; R26.9 Unspecified abnormalities of gait and mobility; R10.11 Right upper quadrant pain; F32.9 Major depressive disorder, single episode, unspecified; E11.65 Type 2 diabetes mellitus with hyperglycemia; I10 Essential (primary) hypertension; F03.90 Unspecified dementia, unspecified severity, without behavioral disturbance, psychotic disturbance, mood disturbance, and anxiety; F41.9 Anxiety disorder, unspecified; R44.1 Visual hallucinations; M54.9 Dorsalgia, unspecified; Z87.891 Personal history of nicotine dependence; Z79.899 Other long term (current) drug therapy; Z79.891 Long term (current) use of opiate analgesic; Z88.8 Allergy status to other drugs, medicaments and biological substances; Z88.1 Allergy status to other antibiotic agents; Z88.0 Allergy status to penicillin; Z88.2 Allergy status to sulfonamides; Z88.5 Allergy status to narcotic agent; Z91.048 Other nonmedicinal substance allergy status; Z90.49 Acquired absence of other specified parts of digestive tract; Z95.0 Presence of cardiac pacemaker; Z20.822 Contact with and (suspected) exposure to COVID-19
CPT/HCPCS: 96376 ×4; 96361 ×3; 96375; 96365; 99285; 51798; 36415; 93005 ×2; 97116 ×2; 97110; 97530 ×3; 97162; 97535; 97166; 80053; 80048 ×2; 83605 ×2; 85025 ×3; 85610; 85730; 81001; 87040; 87635; 71046; 76705; 70450; G0378 ×6; J2270; J0696; J1885 ×5

== ENCOUNTER 2021-07-15 20:52 | Observation (INO) | payer MEDICARE ==
--- NOTE | 2021-07-15 21:34 | ED ---
Chest Pain HPI - General Chief Complaint: Chest Pain Stated Complaint: Chest Pain Source: patient, EMS Mode of arrival: EMS Limitations: no limitations - History of Present Illness Initial Comments: This patient is 76-year-old man transferred here from [facility] to be evaluated for pain that he states started in his left shoulder and spread across his left chest. Patient states that it had started "a few hours back." While he was basically at rest he noted the onset of pain. The patient states he is not capable of doing much as she is not walking now. He also noted that it was accompanied by some shortness of breath. He tried nitroglycerin at the [facility] which didn't change much but when he received nitroglycerin from EMS it seemed to decrease the pain. MD Complaint: chest pain -: hour(s) Onset: during rest Pain Location: left chest Pain Radiation: LUE Severity: moderate Quality: other (Pressure) Consistency: now resolved Improves With: nitroglycerin Worsens With: nothing Anginal Symptoms: dyspnea Treatments Prior to Arrival: nitroglycerin - Related Data Home Medications Medication Instructions Recorded Confirmed Atorvastatin [Lipitor] 10 mg PO HS 02/06/21 07/15/21 FLUoxetine HCL [PROzac] 20 mg PO DAILY 02/06/21 07/15/21 Tamsulosin HCl [Flomax] 0.4 mg PO HS 02/06/21 07/15/21 busPIRone HCL 15 mg PO BID@0800,1600 02/06/21 07/15/21 Ondansetron HCl [Zofran] 4 mg PO Q8H PRN 02/12/21 07/15/21 QUEtiapine [SEROquel] 50 mg PO HS 04/04/21 07/15/21 traZODone HCL [Desyrel] 50 mg PO HS 04/04/21 07/15/21 Healthshake 1 dose PO TID-W/MEALS@07,12,17 07/15/21 07/15/21 Magnesium Hydroxide [Milk of 2,400 mg PO Q72H PRN 07/15/21 07/15/21 Magnesia] Melatonin 3 mg PO HS PRN 07/15/21 07/15/21 traMADol HCL 50 mg PO Q12H PRN 07/15/21 07/15/21 traMADol HCl [Ultram] 50 mg PO BID@0500,1700 07/15/21 07/15/21 Previous Rx's Medication Instructions Recorded Acetaminophen Tab [Tylenol] 650 mg PO Q6HR PRN tab 04/09/21 Allergies Allergy/AdvReac Type Severity Reaction Status Date / Time celecoxib [From Celebrex] Allergy Unknown Verified 07/15/21 21:57 erythromycin base Allergy Unknown Verified 07/15/21 21:57 iron Allergy Unknown Verified 07/15/21 21:57 nitroglycerin Allergy Unknown Verified 07/15/21 21:57 [From Nitro-Bid] penicillin G benethamine Allergy Unknown Verified 07/15/21 21:57 pentazocine [From Talwin] Allergy Unknown Verified 07/15/21 21:57 sulfamethoxazole Allergy Unknown Verified 07/15/21 21:57 [From Bactrim] trimethoprim [From Bactrim] Allergy Unknown Verified 07/15/21 21:57 Review of Systems ROS Statement: Those systems with pertinent positive or pertinent negative responses have been documented in the HPI. ROS Other: All systems not noted in ROS Statement are negative. Constitutional: Denies: fever, chills Respiratory: Reports: dyspnea. Denies: cough, wheezes Cardiovascular: Reports: chest pain. Denies: palpitations, orthopnea, edema, syncope Gastrointestinal: Denies: abdominal pain, nausea, vomiting, diarrhea Genitourinary: Denies: dysuria, hematuria Musculoskeletal: Denies: back pain Skin: Denies: rash Neurological: Denies: headache, weakness, numbness EKG Findings - EKG Results: EKG: interpreted by ERMD, WNL, sinus rhythm (Rate 80 bpm), normal axis, normal QRS, normal ST/T - PA, Pacemaker, Normal: Normal tracing: normal tracing Past Medical History Past Medical History: Dementia, Diabetes Mellitus, Hyperlipidemia, Hypertension, Myocardial Infarction (PA) Additional Past Medical History / Comment(s): back pain History of Any Multi-Drug Resistant Organisms: None Reported Past Surgical History: Back Surgery, Cholecystectomy, Pacemaker Additional Past Surgical History / Comment(s): right hand surgery from work injury, pacermaker in 2018 Past Anesthesia/Blood Transfusion Reactions: No Reported Reaction Type of Cardiac Device: Permanent Pacemaker Device Placement Date:: 2017 Past Psychological History: Anxiety, Depression Smoking Status: Former smoker Past Alcohol Use History: None Reported Past Drug Use History: Marijuana - Past Family History Brother(s) Family Medical History: Cancer Additional Family Medical History / Comment(s): from pancreatic ca 2018 Father Family Medical History: Diabetes Mellitus General Exam General appearance: alert, in no apparent distress Head exam: Present: atraumatic, normocephalic Eye exam: Present: normal appearance. Absent: scleral icterus, conjunctival injection ENT exam: Present: normal oropharynx Neck exam: Present: normal inspection Respiratory exam: Present: normal lung sounds bilaterally. Absent: respiratory distress, wheezes, rales, rhonchi, stridor Cardiovascular Exam: Present: regular rate, normal rhythm, normal heart sounds. Absent: systolic murmur, diastolic murmur, rubs, gallop GI/Abdominal exam: Present: soft. Absent: distended, tenderness, guarding, rebound, rigid, mass Extremities exam: Present: normal inspection, normal capillary refill. Absent: pedal edema, calf tenderness Back exam: Present: normal inspection Neurological exam: Present: alert Skin exam: Present: warm, dry, intact, normal color. Absent: rash Course Vital Signs 07/15/21 07/15/21 07/16/21 20:56 23:15 00:26 Pulse Rate 82 87 87 Respiratory 18 18 18 Rate Blood Pressure 91/50 104/64 104/62 O2 Sat by Pulse 95 94 L 95 Oximetry Disposition
[2021-07-15 22:20] LABS: Basophils # (A) 0.1 k/uL (0-0.2); Basophils % (A) 1 %; Eosinophils # (A) 0.1 k/uL (0-0.7); Eosinophils % (A) 2 %; HCT 38.6 % (39.0-53.0); HGB 12.4 gm/dL (13.0-17.5); Lymphocytes # (A) 0.9 k/uL (1.0-4.8); Lymphocytes % (A) 10 %; MCH 28.7 pg (25.0-35.0); MCHC 32.1 g/dL (31.0-37.0); MCV 89.5 fL (80.0-100.0); Mean Platelet Volume 7.3; Monocytes # (A) 0.6 k/uL (0-1.0); Monocytes % (A) 6 %; Neutrophils # (A) 7.6 k/uL (1.3-7.7); Neutrophils % (A) 81 %; Platelet Count 280 k/uL (150-450); RBC 4.31 m/uL (4.30-5.90); RDW 13.6 % (11.5-15.5); WBC 9.4 k/uL (3.8-10.6)
--- NOTE | 2021-07-15 22:27 | XR ---
EXAMINATION TYPE: XR chest 2V DATE OF EXAM: 07/15/2021 COMPARISON: NONE HISTORY: Chest pain TECHNIQUE: 2 views FINDINGS: There is no heart failure nor confluent pneumonic infiltrate. Costophrenic angles are clear . There is left axillary pacemaker. There are sternal wires. IMPRESSION: No active cardiopulmonary disease. No change.
[2021-07-15 22:31] LABS: INR 0.9 (<1.2)
[2021-07-15 22:39] LABS: ALT 9 U/L (4-49); AST 14 U/L (17-59); African American GFR (CKD) >90 (>60 ml/min/1.73 sqM); Albumin 3.6 g/dL (3.5-5.0); Alkaline Phosphatase 116 U/L (38-126); Anion Gap 12 mmol/L; Blood Urea Nitrogen 18 mg/dL (9-20); Carbon Dioxide 22 mmol/L (22-30); Chloride 102 mmol/L (98-107); Glucose 140 mg/dL (74-99); Magnesium 1.8 mg/dL (1.6-2.3); Non-African American GFR(CKD) 85 (>60 ml/min/1.73 sqM); Potassium 4.4 mmol/L (3.5-5.1); Sodium 136 mmol/L (137-145); Total Bilirubin 0.2 mg/dL (0.2-1.3); Total Protein 6.5 g/dL (6.3-8.2)
[2021-07-15] MEDS ORDERED: MORPHINE SULFATE 4 MG/ML SYRINGE IV STA (23:23)
[2021-07-15] MEDS ORDERED: NITROGLYCERIN SL TABS 0.4 MG TAB SUBLINGUAL PRN (23:24)
[2021-07-16] MEDS: SODIUM CHLORIDE 0.9% 1,000 ML IV SCH ×2 (00:25→21:07)
[2021-07-16] MEDS ORDERED: ENOXAPARIN 60 MG/0.6 ML SYRINGE SQ ONE (01:40)
--- NOTE | 2021-07-16 02:25 | CT ---
EXAMINATION TYPE: CT chest angio for PE DATE OF EXAM: 07/16/2021 COMPARISON: None HISTORY: elevated d-dimer CT DLP: 230.10 mGycm Automated exposure control for dose reduction was used. CONTRAST: Performed with IV Contrast, patient injected with 100 mL of Isovue 370. Images obtained from the thoracic inlet to the diaphragm with IV contrast. There are 3-D post process ed images. There is some mild reticular interstitial infiltrate and atelectasis at the left lung base. There is no pleural effusion. Heart is normal. There is no pericardial effusion. Thoracic aorta is atheromatous. Ascending aorta measures 3.8 cm. There is no dissection. There is normal contrast opacification of the pulmonary arteries. There are no filling defects. There are no hilar masses. There is no mediastinal adenopathy. There are sternal wires. Thoracic spine is intact. There is no compression fracture. IMPRESSION: No evidence of pulmonary embolism. Mild interstitial infiltrate and atelectasis left lung base.
[2021-07-16] MEDS: MORPHINE SULFATE 2 MG/ML SYRINGE IVP PRN ×2 (03:32→08:50)
[2021-07-16] MEDS ORDERED: ASPIRIN 325 MG TAB PO SCH (09:00)
[2021-07-16] MEDS: ACETAMINOPHEN TAB 325 MG TAB PO PRN ×2 (09:26→21:11)
[2021-07-16] MEDS ORDERED: traMADol 50 MG TAB PO PRN (09:50)
[2021-07-16] MEDS ORDERED: MELATONIN 3 MG TABLET PO PRN (09:50)
[2021-07-16] MEDS ORDERED: ONDANSETRON 4 MG TAB PO PRN (09:50)
--- NOTE | 2021-07-16 10:28 | CONS ---
CONSULTATION HISTORY OF PRESENT ILLNESS: This is a 76-year-old gentleman who has most of his health care in the [facility] area has been admitted to the hospital mainly with complaints of what he described as a discomfort in the left shoulder and anterior chest. The patient thinks he may have fallen while he was in the detention and he hurt his left shoulder. The pain is pretty much musculoskeletal, reproducible on mild pressure. He has no documented coronary artery disease. He is not the best of historians, but he tells me that he has no obstructive CAD. He has a cardiac arrhythmia and sees a heart doctor in the [place] area, details unavailable. He is resting comfortably without symptoms. His troponins are normal. Quality of chest pain is very atypical. He has apparently been in a facility here in a detention with rehab. He has no symptoms at the time of my evaluation, but he has reproducible chest pain when I pressed over his sternum and left chest. PAST MEDICAL HISTORY: 1. Hypertension. 2. Hyperlipidemia. 3. Dementia. 4. Unclear if he has any CAD. 5. Patient also has some benign prostatic hypertrophy. PAST SURGICAL HISTORY: He is status post cholecystectomy back surgery and also has a permanent pacemaker. The details are unavailable. EKG, however, revealed a sinus mechanism without any significant acute changes. PHYSICAL EXAMINATION: On examination, blood pressure is 118/70, pulse rate is 70 per minute, regular. HEENT unremarkable. Fundus was not examined by me. NECK: Supple. There is JVD of 1 cm. No carotid bruit. HEART exam reveals S1, S2 with a short systolic murmur. LUNGS reveal diminished air entry. ABDOMEN is soft, nontender. Lower EXTREMITIES reveal diminished pulses. CENTRAL NERVOUS SYSTEM grossly within normal limits. LABORATORY DATA: Revealed unremarkable troponins. His D-dimer was elevated at 1.44, and he had a CT angiogram of the chest, which revealed no evidence of any pulmonary embolism. Some mild infiltrate was noted in the left lung base. IMPRESSION: 1. Musculoskeletal chest pain. 2. Probable sick sinus syndrome with a permanent pacemaker, but the patient is not using the device. 3. Hypertension. 4. Dementia. 5. History of some benign prostatic hypertrophy. RECOMMENDATIONS: No further intervention is necessary from a cardiac standpoint. Patient can be discharged of with some Tylenol for pain and no further workup is necessary at this time. I will continue to see the patient as needed. His blood pressure control is optimal. MMODL / IJN: [id number] /
--- NOTE | 2021-07-16 10:55 | XR ---
EXAMINATION TYPE: XR shoulder complete LT DATE OF EXAM: 07/16/2021 CLINICAL HISTORY: pain COMPARISON: NONE TECHNIQUE: Two views of the left shoulder are obtained. FINDINGS: There is no acute fracture/dislocation evident. The acromioclavicular and glenohumeral johnny int spaces appear within normal limits. The visualized ribs are intact and unremarkable. Radiopaque foreign body noted. IMPRESSION: 1. There is no acute fracture or dislocation. ICD 10 NO FRACTURE, INITIAL EVALUATION
[2021-07-16 11:32] LABS: Chol/HDL Ratio 3.34 Ratio; LDL Cholesterol,Calculated 54.4 mg/dL (0.0-131.0)
[2021-07-16] MEDS: HEPARIN SODIUM,PORCINE/PF 5,000 UNIT/0.5 ML SYRINGE SQ SCH ×2 (11:47→21:07)
[2021-07-16] MEDS: busPIRone HCl 5 MG TAB PO SCH ×2 (11:47→18:07)
[2021-07-16] MEDS: ASPIRIN 81 MG PO SCH (11:47)
[2021-07-16] MEDS: FLUoxetine HCL 20 MG CAP PO SCH (11:47)
[2021-07-16] MEDS: traMADol 50 MG TAB PO SCH (18:16)
--- NOTE | 2021-07-16 21:00 | P.HPIM ---
History of Present Illness H&P Date: 07/16/21 Chief Complaint: Chest pain This is a pleasant 76-year-old patient's of chronic stable medical conditions include cognitive impairment, diabetes, hypertension, hyperlipidemia, acute MS in 2001 with no stents, pacemaker by Dr. Barry and at [facility]. Also had aortic valve replacement in 2001 at the same hospital. Patient presents with left infraclavicular area pain. Feeling like a heaviness. Also quite a bit of pain in the left shoulder. He is having some trouble lifting the shoulder. Pain went down the left arm. Symptoms lasted for a few hours. He was also short of breath. No dizziness no perspiration. No cough. Review of systems: GEN.: Tired EYES: None HEENT: None NECK: None RESPIRATORY: None CARDIOVASCULAR: As above GASTROINTESTINAL: None GENITOURINARY: None MUSCULOSKELETAL: Joint pains LYMPHATICS: None HEMATOLOGICAL: None PSYCHIATRY: Forgetful NEUROLOGICAL: None Past medical history to include: Dementia, diabetes, hyperlipidemia, hypertension, diabetes diet controlled, MS in 2001 with no stents, back surgery, pacemaker in 2018, aortic valve replacement in 2001 with [facility], anxiety depression Social history: Lives with his son. Smoked for about 15 years stopped in 1986. 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 Family history: Pancreatic cancer Physical examination: VITAL SIGNS: 98.5, 78, 17, 11 9/66, 97% on 36 L GENERAL: Average build laying in bed somewhat uncomfortable with the shoulder.. EYES: Pupils equal. Conjunctiva normal. HEENT: External appearance of nose and ears normal, oral cavity grossly normal. NECK: JVD not raised; masses not palpable. HEART: First and second heart sounds are normal; no edema. LUNGS: Respiratory rate normal; decreased breath sounds. ABDOMEN: Soft, nontender, liver spleen not palpable, no masses palpable. PSYCH: Alert and oriented x3; mood and affect anxiousl. MUSCULOSKELETAL: Evidence of OA in several joints. Limited range of motion left shoulder. NEUROLOGICAL: Cranial nerves grossly intact; no facial asymmetry, power and sensation grossly intact. LYMPHATICS: No lymph nodes palpable in the axilla and neck INVESTIGATIONS, reviewed in the clinical context: White count 9.4 hemoglobin 12.4 platelets 280 potassium 4.4 creatinine 0.82 Troponin I less than 0.0123 LDL 113 Coronavirus [PCR]: Not detected EKG tracing personally reviewed by me-normal sinus rhythm. Rate Chest x-ray film personally reviewed by me-questionable chronic interstitial ch anges. Pacemaker Assessment and plan: -Left infraclavicular pain felt to be radiation from left shoulder. Doubt cardiac cause. Cardiology consulted. Telemetry. -Acute left shoulder pain, could be rotator cuff versus acromio-clavicular joint arthritis Full extraocular the left shoulder be done. Consult orthopedics. Heating pad. Ice pack. -Diabetes mellitus type 2, diet controlled -Hyperlipidemia Lipitor 10 mg daily at bedtime -BPH Flomax 0.4 mg daily at bedtime -Permanent pacemaker -Primary osteoarthritis multiple joints bilaterally Pain control -Anxiety depression otherwise specified Prozac 20 mg daily, Seroquel 50 mg daily at bedtime BuSpar 50 mg twice a day -Chronic insomnia from multiple medical problems Desyrel 50 mg daily at bedtime Left shoulder x-rays. Home medications resumed. Consultation to cardiology, orthopedics. Discussed with the patient. Ice pack, heating pad. Past Medical History Past Medical History: Dementia, Diabetes Mellitus, Hyperlipidemia, Hypertension, Myocardial Infarction (MS) Additional Past Medical History / Comment(s): back pain. Diabetes Type II diagnosed in 1956 - Diet controlled. MS 2001 no stents. HTN for years Last Myocardial Infarction Date:: 2001 History of Any Multi-Drug Resistant Organisms: None Reported Past Surgical History: Back Surgery, Cholecystectomy, Pacemaker Additional Past Surgical History / Comment(s): right hand surgery from work injury, Pacemaker in 2018 - Dr Barry out of [facility] Back Surgery L 4 [address] L5 Dr Alvarado [facility]. Aortic Valve Repalcement - 2001 [facility] Past Anesthesia/Blood Transfusion Reactions: No Reported Reaction Type of Cardiac Device: Permanent Pacemaker Device Placement Date:: 2017 Past Psychological History: Anxiety, Depression Smoking Status: Former smoker Past Alcohol Use History: None Reported Past Drug Use History: None Reported - Past Family History Brother(s) Family Medical History: Cancer Additional Family Medical History / Comment(s): from pancreatic ca 2017 Father Family Medical History: Diabetes Mellitus Medications and Allergies Home Medications Medication Instructions Recorded Confirmed Type Atorvastatin [Lipitor] 10 mg PO HS 02/06/21 07/15/21 History FLUoxetine HCL [PROzac] 20 mg PO DAILY 02/06/21 07/15/21 History Tamsulosin HCl [Flomax] 0.4 mg PO HS 02/06/21 07/15/21 History busPIRone HCL 15 mg PO BID@0800,1600 02/06/21 07/15/21 History Ondansetron HCl [Zofran] 4 mg PO Q8H PRN 02/12/21 07/15/21 History QUEtiapine [SEROquel] 50 mg PO HS 04/04/21 07/15/21 History traZODone HCL [Desyrel] 50 mg PO HS 04/04/21 07/15/21 History Acetaminophen Tab [Tylenol] 650 mg PO Q6HR PRN tab 04/09/21 07/15/21 Rx Healthshake 1 dose PO TID-W/MEALS@,,07/15/21 07/15/21 History Magnesium Hydroxide [Milk of 2,400 mg PO Q72H PRN 07/15/21 07/15/21 History Magnesia] Melatonin 3 mg PO HS PRN 07/15/21 07/15/21 History traMADol HCL 50 mg PO Q12H PRN 07/15/21 07/15/21 History traMADol HCl [Ultram] 50 mg PO BID@0500,1700 07/15/21 07/15/21 History Allergies Allergy/AdvReac Type Severity Reaction Status Date / Time celecoxib [From Celebrex] Allergy Unknown Verified 07/15/21 21:57 erythromycin base Allergy Unknown Verified 07/15/21 21:57 iron Allergy Unknown Verified 07/15/21 21:57 nitroglycerin Allergy Unknown Verified 07/15/21 21:57 [From Nitro-Bid] penicillin G benethamine Allergy Unknown Verified 07/15/21 21:57 pentazocine [From Talwin] Allergy Unknown Verified 07/15/21 21:57 sulfamethoxazole Allergy Unknown Verified 07/15/21 21:57 [From Bactrim] trimethoprim [From Bactrim] Allergy Unknown Verified 07/15/21 21:57 Physical Exam Vitals: Vital Signs Temp Pulse Pulse Resp BP BP BP 07/16/21 07:00 98.5 F 78 17 119/66 07/16/21 03:30 97.8 F 72 20 124/70 07/16/21 03:00 82 20 07/16/21 02:00 98.8 F 87 18 115/71 07/16/21 00:26 87 18 104/62 07/15/21 23:15 87 18 104/64 07/15/21 20:56 82 18 91/50 Pulse Ox 07/16/21 07:00 97 07/16/21 03:30 98 07/16/21 03:00 07/16/21 02:00 98 07/16/21 00:26 95 07/15/21 23:15 94 L 07/15/21 20:56 95 Intake and Output 07/15/21 07/16/21 07/16/21 22:59 06:59 14:59 Intake Total 90 Output Total 150 150 Balance -60 -150 Intake: Intake, IV Titration 60 Amount Sodium Chloride 0.9% 1, 60 000 ml @ 20 mls/hr IV . Q24H TONE Rx#:[id number] Oral 30 Output: Urine 150 150 Other: Voiding Method Urinal # Voids 0 Weight 130 kg 130 kg Results CBC & Chem 7: 07/15/21 21:47 07/15/21 21:47 Labs: Abnormal Lab Results - Last 24 Hours (Table) 07/15/21 07/15/21 07/16/21 Range/Units 21:47 21:47 00:18 Hgb 12.4 L (13.0-17.5) gm/dL Hct 38.6 L (39.0-53.0) % Lymphocytes # 0.9 L (1.0-4.8) k/uL D-Dimer 1.44 H (<0.60) mg/L FEU Sodium 136 L (137-145) mmol/L Glucose 140 H (74-99) mg/dL AST 14 L (17-59) U/L Thrombosis Risk Factor Assmnt - Choose All That Apply Any of the Below Risk Factors Present?: No Each Risk Factor Represents 2 Points: Age 61-74 years Other congenital or acquired thrombophilia - If yes, enter type in comment: No Thrombosis Risk Factor Assessment Total Risk Factor Score: 2 Thrombosis Risk Factor Assessment Level: Low Risk
[2021-07-16] MEDS: traZODone HCL 50 MG TAB PO SCH (21:07)
[2021-07-16] MEDS: TAMSULOSIN 0.4 MG CAP.ER.24H PO SCH (21:07)
[2021-07-16] MEDS: ATORVASTATIN 10 MG TAB PO SCH (21:07)
[2021-07-16] MEDS: QUEtiapine 50 MG TAB PO SCH (21:10)
[2021-07-17] MEDS: traMADol 50 MG TAB PO SCH ×2 (05:47→16:56)
[2021-07-17] MEDS: busPIRone HCl 5 MG TAB PO SCH ×2 (08:13→16:56)
[2021-07-17] MEDS: ASPIRIN 81 MG PO SCH (08:13)
[2021-07-17] MEDS: FLUoxetine HCL 20 MG CAP PO SCH (08:13)
[2021-07-17] MEDS: HEPARIN SODIUM,PORCINE/PF 5,000 UNIT/0.5 ML SYRINGE SQ SCH ×2 (08:13→20:30)
[2021-07-17] MEDS ORDERED: HYDROmorphone 0.5 MG/0.5 ML SYRINGE IVP STA (08:47)
--- NOTE | 2021-07-17 11:31 | P.CNOR ---
History of Present Illness - [facility] Consult date: 07/17/21 History of present illness: This patient is a 76- year old male with a past medical history of dementia, diabetes, hypertension, hyperlipidemia, PR in 2001, pacemaker by Dr. Barry that presented to [facility] ER from [facility] on 07/15/21 with complaints with chest pain and left shoulder pain. [facility] which was negative for pulmonary embolism. Troponins are normal. X-rays of the left shoulder were negative for acute fracture or dislocation. Patient was admitted under the care of internal medicine with a consulted placed to cardiology. A consult was placed to orthope dics for evaluation of left shoulder pain. At the time of my exam, patient has no complaints. Patient states the was no injury to the left shoulder, he began experiencing pain a few days ago. He loca lizes the pain to the anterior left shoulder with radiation into the left arm and fingers. Patient also notes intermittent numbness in the fingers. He has no additional complaints at this time. Past Medical History Past Medical History: Dementia, Diabetes Mellitus, Hyperlipidemia, Hypertension, Myocardial Infarction (PR) Additional Past Medical History / Comment(s): back pain. Diabetes Type II diagnosed in 1956 - Diet controlled. PR 2001 no stents. HTN for years Last Myocardial Infarction Date:: 2001 History of Any Multi-Drug Resistant Organisms: None Reported Past Surgical History: Back Surgery, Cholecystectomy, Pacemaker Additional Past Surgical History / Comment(s): right hand surgery from work injury, Pacemaker in 2018 - Dr Barry out of [facility] Back Surgery L 4 & L5 Dr Alvarado [facility]. Aortic Valve Repalcement - 2001 [facility] Past Anesthesia/Blood Transfusion Reactions: No Reported Reaction Type of Cardiac Device: Permanent Pacemaker Device Placement Date:: 2017 Past Psychological History: Anxiety, Depression Smoking Status: Former smoker Past Alcohol Use History: None Reported Past Drug Use History: None Reported - Past Family History Brother(s) Family Medical History: Cancer Additional Family Medical History / Comment(s): from pancreatic ca 2017 Father Family Medical History: Diabetes Mellitus Medications and Allergies Home Medications Medication Instructions Recorded Confirmed Type Atorvastatin [Lipitor] 10 mg PO HS 02/06/21 07/15/21 History FLUoxetine HCL [PROzac] 20 mg PO DAILY 02/06/21 07/15/21 History Tamsulosin HCl [Flomax] 0.4 mg PO HS 02/06/21 07/15/21 History busPIRone HCL 15 mg PO BID@0800,1600 02/06/21 07/15/21 History Ondansetron HCl [Zofran] 4 mg PO Q8H PRN 02/12/21 07/15/21 History QUEtiapine [SEROquel] 50 mg PO HS 04/04/21 07/15/21 History traZODone HCL [Desyrel] 50 mg PO HS 04/04/21 07/15/21 History Acetaminophen Tab [Tylenol] 650 mg PO Q6HR PRN tab 04/09/21 07/15/21 Rx Healthshake 1 dose PO TID-W/MEALS@07,,07/15/21 07/15/21 History Magnesium Hydroxide [Milk of 2,400 mg PO Q72H PRN 07/15/21 07/15/21 History Magnesia] Melatonin 3 mg PO HS PRN 07/15/21 07/15/21 History traMADol HCL 50 mg PO Q12H PRN 07/15/21 07/15/21 History traMADol HCl [Ultram] 50 mg PO BID@0500,1700 07/15/21 07/15/21 History Allergies Allergy/AdvReac Type Severity Reaction Status Date / Time celecoxib [From Celebrex] Allergy Unknown Verified 07/15/21 21:57 erythromycin base Allergy Unknown Verified 07/15/21 21:57 iron Allergy Unknown Verified 07/15/21 21:57 nitroglycerin Allergy Unknown Verified 07/15/21 21:57 [From Nitro-Bid] penicillin G benethamine Allergy Unknown Verified 07/15/21 21:57 pentazocine [From Talwin] Allergy Unknown Verified 07/15/21 21:57 sulfamethoxazole Allergy Unknown Verified 07/15/21 21:57 [From Bactrim] trimethoprim [From Bactrim] Allergy Unknown Verified 07/15/21 21:57 Physical Examination On examination, the patient is sitting up in bed in no apparent distress. He is alert and answers questions appropriately. His head appears normocephalic and atraumatic. His breathing appears non-labored. On inspection of the left shoulde r, there is no swelling, erythema, warmth, skin discoloration. No open wounds or lacerations, skin is intact. There is healed incision over his pacemaker. There is diffuse, non-specific discomfort with palpation of the anterior shoulder. No pain with palpation of the C-spine, clavicle. No pain with palpation of the elbow, forearm, wrist, hand. Patient has relatively normal active ROM of the left shoulder with discomfort above 90 degrees of abduction and forward elevation. Minimal pain with PROM of the shoulder. Motor and sensory function intact of the left upper extremity. Radial pulse +2, the left upper extremity is warm and well perfused with brisk capillary refill of the fingers. No obvious deformities or signs of trauma of the right upper extremity. Results Left shoulder x-ray 07/16/21: No acute fractures or dislocations. - Labs Labs: Abnormal Lab Results - Last 24 Hours (Table) 07/16/21 07/16/21 Range/Units 03:04 03:12 Hemoglobin A1c 6.4 H (4.0-6.0) % HDL Cholesterol 33.80 L (40.00-60.00) mg/dL H & H 07/15/21 Range/Units 21:47 Hgb 12.4 L (13.0-17.5) gm/dL Hct 38.6 L (39.0-53.0) % Coagulation 07/15/21 Range/Units 21:47 INR 0.9 (<1.2) Result Diagrams: 07/15/21 21:47 07/15/21 21:47 Assessment and Plan Assessment: Left shoulder pain Plan: - Clinical and imaging findings were discussed with the patient. The patient was discussed with Dr. Bower. No surgical intervention is planned at this time. - Patient may perform gentle [id number] of the left shoulder as tolerated. Recommend evaluation by physical therapy. - Recommend pain control with tylenol and/or motrin. - He may discharge from orthopedic standpoint and follow-up in our office for further evaluation and treatment.
--- NOTE | 2021-07-17 11:41 | PN ---
PROGRESS NOTE Mr. Smith is comfortable and resting. He has history of CAD and prior bypass surgery in 2001 or so. He has no chest pain to suggest angina. He has chest pain which is musculoskeletal, reproducible, with tenderness over the chest and also on the left shoulder. He can be discharged whenever he is cleared by his admitting doctor and primary care physician. I will see him as needed from a cardiac standpoint. Vitals are stable. No JVD. S1, S2 heard normally. Short systolic murmur noted. Lungs reveal diminished air entry with some splinting. Abdomen is soft. Lower extremities reveal diminished pulses. Central nervous system grossly no focal deficits. MMODL / IJN: [id number] /
[2021-07-17] MEDS ORDERED: NAPROXEN 250 MG TAB PO STA (12:00)
[2021-07-17] MEDS ORDERED: predniSONE 20 MG TAB PO STA (12:46)
[2021-07-17] MEDS: traZODone HCL 50 MG TAB PO SCH (20:30)
[2021-07-17] MEDS: ATORVASTATIN 10 MG TAB PO SCH (20:30)
[2021-07-17] MEDS: TAMSULOSIN 0.4 MG CAP.ER.24H PO SCH (20:30)
[2021-07-17] MEDS: ACETAMINOPHEN TAB 325 MG TAB PO PRN (20:31)
[2021-07-17] MEDS: QUEtiapine 50 MG TAB PO SCH (20:39)
--- NOTE | 2021-07-17 23:09 | P.PN ---
Progress Note - Text Progress Note Date: 07/17/21 Chief Complaint: Chest pain This is a pleasant 76-year-old patient's of chronic stable medical conditions include cognitive impairment, diabetes, hypertension, hyperlipidemia, acute [place] in 2001 with no stents, pacemaker by Dr. Barry and at [facility]. Also had aortic valve replacement in 2001 at the same hospital. Patient presents with left infraclavicular area pain. Feeling like a heaviness. Also quite a bit of pain in the left shoulder. He is having some trouble lifting the shoulder. Pain went down the left arm. Symptoms lasted for a few hours. He was also short of breath. No dizziness no perspiration. No cough. July 17: Patient having significant pain in the left shoulder. Seen by orthopedics. Patient already getting ultra. Also naproxen. Heating pad. Review of systems: Was done for constitutional, cardiovascular, GI, pulmonary. relevant finding as above Active Medications Acetaminophen (Acetaminophen Tab 325 Mg Tab) 650 mg PO Q4HR PRN PRN Reason: Fever and/ or Mild Pain Last Admin: 07/17/21 20:31 Dose: 650 mg Documented by: Aspirin (Aspirin 81 Mg) 81 mg PO DAILY [facility] Last Admin: 07/17/21 08:13 Dose: 81 mg Documented by: Atorvastatin Calcium (Atorvastatin 10 Mg Tab) 10 mg PO HS [facility] Last Admin: 07/17/21 20:30 Dose: 10 mg Documented by: Buspirone HCl (Buspirone Hcl 5 Mg Tab) 15 mg PO BID@0800,1600 [facility] Last Admin: 07/17/21 16:56 Dose: 15 mg Documented by: Fluoxetine HCl (Fluoxetine Hcl 20 Mg Cap) 20 mg PO DAILY [facility] Last Admin: 07/17/21 08:13 Dose: 20 mg Documented by: Heparin Sodium (Porcine) (Heparin Sodium,Porcine/Pf 5,000 Unit/0.5 Ml Syringe) 5,000 unit SQ Q12HR [facility] Last Admin: 07/17/21 20:30 Dose: 5,000 unit Documented by: Sodium Chloride (Saline 0.9%) 1,000 mls @ 20 mls/hr IV .Q24H [facility] Last Admin: 07/16/21 21:07 Dose: Not Given Documented by: Melatonin (Melatonin 3 Mg Tablet) 3 mg PO HS PRN PRN Reason: Insomnia Nitroglycerin (Nitroglycerin Sl Tabs 0.4 Mg Tab) 0.4 mg SUBLINGUAL Q5M PRN PRN Reason: Chest Pain Ondansetron HCl (Ondansetron 4 Mg Tab) 4 mg PO Q8H PRN PRN Reason: Nausea And Vomiting Quetiapine Fumarate (Quetiapine 50 Mg Tab) 50 mg PO [facility] Last Admin: 07/17/21 20:39 Dose: 50 mg Documented by: Tamsulosin HCl (Tamsulosin 0.4 Mg Cap.Er.24h) 0.4 mg PO [facility] Last Admin: 07/17/21 20:30 Dose: 0.4 mg Documented by: Tramadol HCl (Tramadol 50 Mg Tab) 50 mg PO BID@0500,1700 [facility] Last Admin: 07/17/21 16:56 Dose: 50 mg Documented by: Tramadol HCl (Tramadol 50 Mg Tab) 50 mg PO Q12H PRN PRN Reason: Moderate to Severe Pain Trazodone HCl (Trazodone Hcl 50 Mg Tab) 50 mg PO [facility] Last Admin: 07/17/21 20:30 Dose: 50 mg Documented by: Past medical history to include: Dementia, diabetes, hyperlipidemia, hypertension, diabetes diet controlled, [place] in 2001 with no stents, back surgery, pacemaker in 2018, aortic valve replacement in 2001 with [facility], anxiety depression Social history: Lives with his son. Smoked for about 15 years stopped in 1986. 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 Family history: Pancreatic cancer Physical examination: VITAL SIGNS: 98.1, 77, 16, 1 10 x 68, 96% on 4 L GENERAL: laying in bed somewhat uncomfortable with the shoulder.. EYES: Pupils equal. Conjunctiva normal. HEENT: External appearance of nose and ears normal, oral cavity grossly normal. NECK: JVD not raised; masses not palpable. HEART: First and second heart sounds are normal; no edema. LUNGS: Respiratory rate normal; decreased breath sounds. ABDOMEN: Soft, nontender, liver spleen not palpable, no masses palpable. PSYCH: Alert and oriented x3; mood and affect anxious. MUSCULOSKELETAL: Evidence of OA in several joints. Limited range of motion left shoulder. INVESTIGATIONS, reviewed in the clinical context: White count 9.4 hemoglobin 12.4 platelets 280 potassium 4.4 creatinine 0.82 Troponin I less than 0.0123 LDL 113 Coronavirus [PCR]: Not detected EKG tracing personally reviewed by me-normal sinus rhythm. Rate Chest x-ray film personally reviewed by me-questionable chronic interstitial changes. Pacemaker Assessment and plan: -Left infraclavicular pain felt to be radiation from left shoulder. Doubt cardiac cause. Cardiology consulted. Telemetry. -Acute left shoulder pain, could be rotator cuff versus acromio-clavicular joint arthritis X-ray left shoulder. Consult orthopedics. Heating pad. Ice pack. Naproxen. -Diabetes mellitus type 2, diet controlled -Hyperlipidemia Lipitor 10 mg daily at bedtime -BPH Flomax 0.4 mg daily at bedtime -Permanent pacemaker -Primary osteoarthritis multiple joints bilaterally Pain control -Anxiety depression otherwise specified Prozac 20 mg daily, Seroquel 50 mg daily at bedtime BuSpar 50 mg twice a day -Chronic insomnia from multiple medical problems Desyrel 50 mg daily at bedtime Naproxen Ultram Tylenol Ice pack, heating pad. Follow with orthopedics. 1 dose of prednisone 60 mg.
[2021-07-18] MEDS: NAPROXEN 250 MG TAB PO SCH ×3 (00:14→13:15)
[2021-07-18] MEDS: SODIUM CHLORIDE 0.9% 1,000 ML IV SCH (00:15)
[2021-07-18] MEDS: traMADol 50 MG TAB PO SCH ×2 (04:24→16:08)
[2021-07-18] MEDS: ASPIRIN 81 MG PO SCH (07:45)
[2021-07-18] MEDS: FLUoxetine HCL 20 MG CAP PO SCH (07:46)
[2021-07-18] MEDS: HEPARIN SODIUM,PORCINE/PF 5,000 UNIT/0.5 ML SYRINGE SQ SCH (07:47)
[2021-07-18] MEDS: busPIRone HCl 5 MG TAB PO SCH ×2 (07:50→16:09)
[2021-07-18 08:46] VITALS: BP 115/58; RESP 20; TEMP 97.3
[2021-07-18 10:54] VITALS: PULSE 66
[2021-07-18] MEDS: ACETAMINOPHEN TAB 325 MG TAB PO PRN (12:30)
--- NOTE | 2021-07-18 13:26 | P.DS ---
Providers Date of admission: 07/15/21 23:24 Expected date of discharge: 07/18/21 Attending physician: Shlomo Thomas Consults: 07/15/21 23:24 Consult Physician Routine Consulting Provider: Elia Lyle Consult Reason/Comments: chest pain Do you want consulting provider notified?: Yes 07/16/21 10:46 Consult Physician Routine Consulting Provider: Phong Bower Consult Reason/Comments: left shoulder pain Do you want consulting provider notified?: Yes Primary care physician: Physician Nonstaff Hospital Course: Chief Complaint: Chest pain This is a pleasant 76-year-old patient's of chronic stable medical conditions include cognitive impairment, diabetes, hypertension, hyperlipidemia, acute [place] in 2001 with no stents, pacemaker by Dr. Barry and at [facility]. Also had aortic valve replacement in 2001 at the same hospital. Patient presents with left infraclavicular area pain. Feeling like a heaviness. Also quite a bit of pain in the left shoulder. He is having some trouble lifting the shoulder. Pain went down the left arm. Symptoms lasted for a few hours. He was also short of breath. No dizziness no perspiration. No cough. Seen by cardiology. Elmo to be muscular skeletal pain. July 17: Patient having significant pain in the left shoulder. Seen by orthopedics. Patient already getting ultra. Also naproxen. Heating pad. July 18: Patient return to [facility]. Pain better controlled with naproxen. Discussion and discharge planning more than 35 minutes Consultation: Dr. ABRIL Daley from cardiology Dr. Bower from orthopedics Past medical history to include: Dementia, diabetes, hyperlipidemia, hypertension, diabetes diet controlled, [place] in 2001 with no stents, back surgery, pacemaker in 2018, aortic valve replacement in 2001 with [facility], anxiety depression Social history: Lives with his son. Smoked for about 15 years stopped in 1986. 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 Family history: Pancreatic cancer Physical examination: VITAL SIGNS: 97.3, 63, 20, 150s/58, 92% on room air GENERAL: laying in bed , comfortable EYES: Pupils equal. Conjunctiva normal. HEENT: External appearance of nose and ears normal, oral cavity grossly normal. NECK: JVD not raised; masses not palpable. HEART: First and second heart sounds are normal; no edema. LUNGS: Respiratory rate normal; decreased breath sounds. ABDOMEN: Soft, nontender, liver spleen not palpable, no masses palpable. PSYCH: Alert and oriented x3; mood and affect anxious. MUSCULOSKELETAL: Evidence of OA in several joints. Limited range of motion left shoulder. INVESTIGATIONS, reviewed in the clinical context: White count 9.4 hemoglobin 12.4 platelets 280 potassium 4.4 creatinine 0.82 Troponin I less than 0.0123 LDL 113 Coronavirus [PCR]: Not detected EKG tracing personally reviewed by me-normal sinus rhythm. Rate Chest x-ray film personally reviewed by me-questionable chronic interstitial changes. Pacemaker Assessment and plan: -Left infraclavicular pain felt to be radiation from left shoulder. Doubt cardiac cause. Seen by cardiology -Acute left shoulder pain, could be rotator cuff versus acromio-clavicular joint arthritis Dr. Bower orthopedics. Heating pad. Ice pack. Naproxen. Ultram -Diabetes mellitus type 2, diet controlled -Hyperlipidemia Lipitor 10 mg daily at bedtime -BPH Flomax 0.4 mg daily at bedtime -Permanent pacemaker -Primary osteoarthritis multiple joints bilaterally Pain control -Anxiety depression otherwise specified Prozac 20 mg daily, Seroquel 50 mg daily at bedtime BuSpar 50 mg twice a day -Chronic insomnia from multiple medical problems Desyrel 50 mg daily at bedtime [facility] - [facility] Summary Discharge Rx Participant: No New Discharge Prescriptions: New Aspirin 81 mg PO DAILY tab Naproxen [Naprosyn] 250 mg PO TID #15 tab Famotidine [Pepcid] 20 mg PO DAILY #30 tablet predniSONE 0 mg PO DIRECTED #20 tab Continue busPIRone HCL 15 mg PO BID@0800,1600 Tamsulosin HCl [Flomax] 0.4 mg PO HS QUEtiapine [SEROquel] 50 mg PO HS Acetaminophen Tab [Tylenol] 650 mg PO Q6HR PRN tab PRN Reason: Fever And/ Or Pain Healthshake 1 dose PO TID-W/MEALS@07,12,17 traMADol HCL 50 mg PO Q12H PRN PRN Reason: Moderate To Severe Pain traMADol HCl [Ultram] 50 mg PO BID@0500,1700 Atorvastatin [Lipitor] 10 mg PO HS FLUoxetine HCL [PROzac] 20 mg PO DAILY Ondansetron HCl [Zofran] 4 mg PO Q8H PRN PRN Reason: Nausea And Vomiting traZODone HCL [Desyrel] 50 mg PO HS Magnesium Hydroxide [Milk of Magnesia] 2,400 mg PO Q72H PRN PRN Reason: Constipation Melatonin 3 mg PO HS PRN PRN Reason: Insomnia Discharge Medication List Atorvastatin [Lipitor] 10 mg PO HS 02/06/21 [History] FLUoxetine HCL [PROzac] 20 mg PO DAILY 02/06/21 [History] Tamsulosin HCl [Flomax] 0.4 mg PO HS 02/06/21 [History] busPIRone HCL 15 mg PO BID@0800,1600 02/06/21 [History] Ondansetron HCl [Zofran] 4 mg PO Q8H PRN 02/12/21 [History] QUEtiapine [SEROquel] 50 mg PO HS 04/04/21 [History] traZODone HCL [Desyrel] 50 mg PO HS 04/04/21 [History] Acetaminophen Tab [Tylenol] 650 mg PO Q6HR PRN tab 04/09/21 [Rx] Healthshake 1 dose PO TID-W/MEALS@07,12,17 07/15/21 [History] Magnesium Hydroxide [Milk of Magnesia] 2,400 mg PO Q72H PRN 07/15/21 [History] Melatonin 3 mg PO HS PRN 07/15/21 [History] traMADol HCL 50 mg PO Q12H PRN 07/15/21 [History] traMADol HCl [Ultram] 50 mg PO BID@0500,1700 07/15/21 [History] Aspirin 81 mg PO DAILY tab 07/17/21 [Rx] Famotidine [Pepcid] 20 mg PO DAILY #30 tablet 07/17/21 [Rx] Naproxen [Naprosyn] 250 mg PO TID #15 tab 07/17/21 [Rx] predniSONE 0 mg PO DIRECTED #20 tab 07/17/21 [Rx] Follow up Appointment(s)/Referral(s): Elias Cai DO [REFERRING] - 1-2 days Phong Bower MD [Medical Doctor] - As Needed
== END 2021-07-18 16:43 ==
LOC: EC 20:52 → 6NMEDSUR 23:24
PROVIDERS: ADMIT Hospitalist; ATTEND Hospitalist
DX: R07.89 Other chest pain (principal); M25.512 Pain in left shoulder; J98.11 Atelectasis; F03.90 Unspecified dementia, unspecified severity, without behavioral disturbance, psychotic disturbance, mood disturbance, and anxiety; I10 Essential (primary) hypertension; I25.10 Atherosclerotic heart disease of native coronary artery without angina pectoris; E11.9 Type 2 diabetes mellitus without complications; E78.5 Hyperlipidemia, unspecified; N40.0 Benign prostatic hyperplasia without lower urinary tract symptoms; M54.9 Dorsalgia, unspecified; R91.8 Other nonspecific abnormal finding of lung field; R20.0 Anesthesia of skin; M15.9 Polyosteoarthritis, unspecified; F32.A Depression, unspecified; F41.9 Anxiety disorder, unspecified; F51.04 Psychophysiologic insomnia; Z20.822 Contact with and (suspected) exposure to COVID-19; Z79.899 Other long term (current) drug therapy; Z88.6 Allergy status to analgesic agent; Z88.1 Allergy status to other antibiotic agents; Z88.0 Allergy status to penicillin; Z88.2 Allergy status to sulfonamides; Z88.8 Allergy status to other drugs, medicaments and biological substances; I25.2 Old myocardial infarction; Z87.891 Personal history of nicotine dependence; Z90.49 Acquired absence of other specified parts of digestive tract; Z95.2 Presence of prosthetic heart valve; Z87.828 Personal history of other (healed) physical injury and trauma; Z95.1 Presence of aortocoronary bypass graft; Z95.0 Presence of cardiac pacemaker; Z98.890 Other specified postprocedural states; Z80.0 Family history of malignant neoplasm of digestive organs; Z83.3 Family history of diabetes mellitus
CPT/HCPCS: 96376; 96372 ×3; 96375; 96374; 99285; 36415; 93005; 97162; 97166; 85379; 80061; 80053; 83735; 84484 ×2; 85025; 85610; 85730; 83036; 87635; 73030; 71046; 71275; G0378 ×4; J2270 ×2; J1650; J7512; J1170; Q9967; J1644 ×3

== ENCOUNTER 2021-12-20 16:19 | Inpatient (IN) | payer MEDICARE ==
--- NOTE | 2021-12-20 17:02 | ED ---
General Adult HPI - General Chief complaint: Altered Mental Status Stated complaint: altered mental status Time Seen by Provider: 12/20/21 16:35 Source: EMS Mode of arrival: EMS Limitations: altered mental status - History of Present Illness Initial comments: Dictation was produced using [email or web address] dictation software. please excuse any grammatical, word or spelling errors. Chief Complaint: Patient is a 76-year-old male who presents to the emergency department for altered mental status. History of Present Illness: 76-year-old male he has multiple comorbidities. He is currently resident midline show poor urine. He is at baseline a and O 2- /. Today he is alert and oriented 1. It is unclear exactly when patient was last normal period Patient is a poor historian. Patient is brought to the ER for altered mental status. Patient has history of dementia, diabetes and dyslipidemia. Patient has no complaints at this time. He is able to tell me his full name. The ROS documented in this emergency department record has been reviewed and confirmed by me. Those systems with pertinent positive or negative responses have been documented in the HPI. All other systems are other negative and/or noncontributory. PHYSICAL EXAM: General Impression: Alert and oriented x1/4, not in acute distress HEENT: Normocephalic atraumatic, extra-ocular movements intact, pupils equal and reactive to light bilaterally, mucous membranes moist. Cardiovascular: Heart regular rate and rhythm Chest: Able to complete full sentences, no retractions, no tachypnea Abdomen: abdomen soft, non-tender, non-distended, no organomegaly Musculoskeletal: Pulses present and equal in all extremities, no peripheral edema Motor: no focal deficits noted Neurological: CN II-XII grossly intact, no focal motor or sensory deficits noted Skin: Intact with no visualized rashes Psych: Normal affect and mood ED course: 76-year-old well-appearing male presents emergency department for altered mental status. Unclear when his altered mental status was noticed. Currently resident at [facility]. Vital signs upon arrival are within acceptable limits. Laboratory evaluation obtained. CBC, coag panel, metabolic panel is unremarkable. Urinalysis shows no findings of urinary tract infection. Computed tomography scan of brain shows loss of russell-white matter differentiation of the right medial occipital temporal concerning for stroke. Patient given aspirin. Patient not a candidate for alteplase given that patient does not have clear last known normal within the time of onset. Patient reevaluated bedside at 7:15 PM resting comfortably. Is not showing any neurologic deficits. Patient will be admitted to Dr. Thomas a consultation to neurology. EKG interpretation: Ventricular rate 87, sinus rhythm, OK interval 145, QS 92, QTC 421. No OK prolongation, no QTC prolongation, T-wave inversions in the anterior precordial leads that appear to be new compared to most recent EKG in our electronic medical record. EKG compared to 07/15/2021 - Related Data Home Medications Medication Instructions Recorded Confirmed Atorvastatin [Lipitor] 10 mg PO HS 02/06/21 12/20/21 FLUoxetine HCL [PROzac] 20 mg PO DAILY 02/06/21 12/20/21 Tamsulosin HCl [Flomax] 0.4 mg PO HS 02/06/21 12/20/21 busPIRone HCL 15 mg PO BID 02/06/21 12/20/21 traZODone HCL [Desyrel] 50 mg PO HS 04/04/21 [facility]@1200 07/15/21 12/20/21 Melatonin 3 mg PO HS PRN 07/15/21 12/20/21 traMADol HCL 100 mg PO Q24H PRN 07/15/21 12/20/21 traMADol HCl [Ultram] 100 mg PO Q12H 07/15/21 12/20/21 QUEtiapine [SEROquel] 25 mg PO HS 12/20/21 12/20/21 Sennosides-Docusate Sodium 2 tab PO BID 12/20/21 12/20/21 [Senokot-S] metFORMIN HCL [Glucophage] 500 mg PO DAILY 12/20/21 12/20/21 Previous Rx's Medication Instructions Recorded Acetaminophen Tab [Tylenol] 650 mg PO Q6HR PRN tab 04/09/21 Aspirin 81 mg PO DAILY tab 07/17/21 Famotidine [Pepcid] 20 mg PO DAILY #30 tablet 07/17/21 Allergies Allergy/AdvReac Type Severity Reaction Status Date / Time celecoxib [From Celebrex] Allergy Unknown Verified 12/20/21 17:09 erythromycin base Allergy Unknown Verified 12/20/21 17:09 iron Allergy Unknown Verified 12/20/21 17:09 nitroglycerin Allergy Unknown Verified 12/20/21 17:09 [From Nitro-Bid] penicillin G benethamine Allergy Unknown Verified 12/20/21 17:09 pentazocine [From Talwin] Allergy Unknown Verified 12/20/21 17:09 sulfamethoxazole Allergy Unknown Verified 12/20/21 17:09 [From Bactrim] trimethoprim [From Bactrim] Allergy Unknown Verified 12/20/21 17:09 Review of Systems ROS Statement: Those systems with pertinent positive or pertinent negative responses have been documented in the HPI. ROS Other: All systems not noted in ROS Statement are negative. Past Medical History Past Medical History: Dementia, Diabetes Mellitus, Hyperlipidemia, Hypertension, Myocardial Infarction ([place]) Additional Past Medical History / Comment(s): back pain. Diabetes Type II diagnosed in 1956 - Diet controlled. [place] 2001 no stents. HTN for years Last Myocardial Infarction Date:: 2001 History of Any Multi-Drug Resistant Organisms: None Reported Past Surgical History: Back Surgery, Cholecystectomy, Pacemaker Additional Past Surgical History / Comment(s): right hand surgery from work injury, Pacemaker in 2018 - Dr Barry out of [facility] Back Surgery L 4 & L5 Dr Alvarado [facility]. Aortic Valve Rep alcement - 2001 [facility] Past Anesthesia/Blood Transfusion Reactions: No Reported Reaction Type of Cardiac Device: Permanent Pacemaker Device Placement Date:: 2017 Past Psychological History: Anxiety, Depression Smoking Status: Former smoker Past Alcohol Use History: None Reported Past Drug Use History: None Reported - Past Family History Brother(s) Family Medical History: Cancer Additional Family Medical History / Comment(s): from pancreatic ca 2017 Father Family Medical History: Diabetes Mellitus General Exam Limitations: altered mental status Course Vital Signs 12/20/21 12/20/21 12/20/21 16:22 17:00 18:00 Temperature 98.1 F Pulse Rate 86 78 74 Respiratory 14 12 12 Rate Blood Pressure 117/64 108/60 108/60 O2 Sat by Pulse 95 95 97 Oximetry Medical Decision Making - Lab Data Result diagrams: 12/20/21 17:12 12/20/21 17:10 Lab Results 12/20/21 12/20/21 12/20/21 Range/Units 17:10 17:10 17:10 WBC (3.8-10.6) k/uL RBC (4.30-5.90) m/uL Hgb (13.0-17.5) gm/dL Hct (39.0-53.0) % MCV (80.0-100.0) fL MCH (25.0-35.0) pg MCHC (31.0-37.0) g/dL RDW (11.5-15.5) % Plt Count (150-450) k/uL MPV Neutrophils % % Lymphocytes % % Monocytes % % Eosinophils % % Basophils % % Neutrophils # (1.3-7.7) k/uL Lymphocytes # (1.0-4.8) k/uL Monocytes # (0-1.0) k/uL Eosinophils # (0-0.7) k/uL Basophils # (0-0.2) k/uL PT 10.4 (9.0-12.0) sec INR 1.0 (<1.2) APTT 23.0 (22.0-30.0) sec Sodium 137 (137-145) mmol/L Potassium 3.9 (3.5-5.1) mmol/L Chloride 103 (98-107) mmol/L Carbon Dioxide 24 (22-30) mmol/L Anion Gap 10 mmol/L BUN 23 H (9-20) mg/dL Creatinine 0.97 (0.66-1.25) mg/dL Est GFR (CKD-EPI)AfAm 87 (>60 ml/min/1.73 sqM) Est GFR (CKD-EPI)NonAf 76 (>60 ml/min/1.73 sqM) Glucose 137 H (74-99) mg/dL Plasma Lactic Acid Robbie 2.0 (0.7-2.0) mmol/L Calcium 8.7 (8.4-10.2) mg/dL Magnesium 1.9 (1.6-2.3) mg/dL Total Bilirubin 0.4 (0.2-1.3) mg/dL AST 20 (17-59) U/L ALT 13 (4-49) U/L Alkaline Phosphatase 93 (38-126) U/L Total Protein 6.2 L (6.3-8.2) g/dL Albumin 3.7 (3.5-5.0) g/dL Urine Color Urine Appearance (Clear) Urine pH (5.0-8.0) Ur Specific [place] (1.001-1.035) Urine Protein (Negative) Urine Glucose (UA) (Negative) Urine Ketones (Negative) Urine Blood (Negative) Urine Nitrite (Negative) Urine Bilirubin (Negative) Urine Urobilinogen (<2.0) mg/dL Ur Leukocyte Esterase (Negative) Urine RBC (0-5) /hpf Urine WBC (0-5) /hpf Ur Squamous Epith Cells (0-4) /hpf Amorphous Sediment (None) /hpf Hyaline Casts (0-2) /lpf Urine Mucus (None) /hpf 12/20/21 12/20/21 Range/Units 17:12 17:12 WBC 8.2 (3.8-10.6) k/uL RBC 4.31 (4.30-5.90) m/uL Hgb 12.7 L (13.0-17.5) gm/dL Hct 39.0 (39.0-53.0) % MCV 90.5 (80.0-100.0) fL MCH 29.4 (25.0-35.0) pg MCHC 32.5 (31.0-37.0) g/dL RDW 13.9 (11.5-15.5) % Plt Count 253 (150-450) k/uL MPV 8.0 Neutrophils % 69 % Lymphocytes % 18 % Monocytes % 7 % Eosinophils % 3 % Basophils % 1 % Neutrophils # 5.7 (1.3-7.7) k/uL Lymphocytes # 1.5 (1.0-4.8) k/uL Monocytes # 0.6 (0-1.0) k/uL Eosinophils # 0.2 (0-0.7) k/uL Basophils # 0.1 (0-0.2) k/uL PT (9.0-12.0) sec INR (<1.2) APTT (22.0-30.0) sec Sodium (137-145) mmol/L Potassium (3.5-5.1) mmol/L Chloride (98-107) mmol/L Carbon Dioxide (22-30) mmol/L Anion Gap mmol/L BUN (9-20) mg/dL Creatinine (0.66-1.25) mg/dL Est GFR (CKD-EPI)AfAm (>60 ml/min/1.73 sqM) Est GFR (CKD-EPI)NonAf (>60 ml/min/1.73 sqM) Glucose (74-99) mg/dL Plasma Lactic Acid Robbie (0.7-2.0) mmol/L Calcium (8.4-10.2) mg/dL Magnesium (1.6-2.3) mg/dL Total Bilirubin (0.2-1.3) mg/dL AST (17-59) U/L ALT (4-49) U/L Alkaline Phosphatase (38-126) U/L Total Protein (6.3-8.2) g/dL Albumin (3.5-5.0) g/dL Urine Color Yellow Urine Appearance Cloudy (Clear) Urine pH 5.5 (5.0-8.0) Ur Specific [place] 1.031 (1.001-1.035) Urine Protein Trace H (Negative) Urine Glucose (UA) Negative (Negative) Urine Ketones Trace H (Negative) Urine Blood Trace H (Negative) Urine Nitrite Negative (Negative) Urine Bilirubin Negative (Negative) Urine Urobilinogen 2.0 (<2.0) mg/dL Ur Leukocyte Esterase Small H (Negative) Urine RBC 13 H (0-5) /hpf Urine WBC 3 (0-5) /hpf Ur Squamous Epith Cells <1 (0-4) /hpf Amorphous Sediment Rare H (None) /hpf Hyaline Casts 1 (0-2) /lpf Urine Mucus Occasional H (None) /hpf Disposition Clinical Impression: Altered mental status Disposition: ADMITTED IP TO THIS [facility] Condition: Fair Referrals: Abisai Wilcox DO [Primary Care Provider] - 1-2 days Decision Time: 19:17
[2021-12-20 17:38] LABS: Albumin 3.7 g/dL (3.5-5.0); Calcium 8.7 mg/dL (8.4-10.2); Magnesium 1.9 mg/dL (1.6-2.3); Potassium 3.9 mmol/L (3.5-5.1); Total Bilirubin 0.4 mg/dL (0.2-1.3); Total Protein 6.2 g/dL (6.3-8.2)
[2021-12-20 17:41] LABS: Basophils # (A) 0.1 k/uL (0-0.2); Basophils % (A) 1 %; Eosinophils # (A) 0.2 k/uL (0-0.7); Eosinophils % (A) 3 %; HGB 12.7 gm/dL (13.0-17.5); Lymphocytes # (A) 1.5 k/uL (1.0-4.8); Lymphocytes % (A) 18 %; MCH 29.4 pg (25.0-35.0); MCHC 32.5 g/dL (31.0-37.0); MCV 90.5 fL (80.0-100.0); Monocytes # (A) 0.6 k/uL (0-1.0); Monocytes % (A) 7 %; Neutrophils # (A) 5.7 k/uL (1.3-7.7); Neutrophils % (A) 69 %; Platelet Count 253 k/uL (150-450); RBC 4.31 m/uL (4.30-5.90); RDW 13.9 % (11.5-15.5); WBC 8.2 k/uL (3.8-10.6)
[2021-12-20 17:43] LABS: Prothrombin Time 10.4 sec (9.0-12.0)
[2021-12-20 18:43] LABS: Amorphous Sediment,Urine Rare /hpf; Appearance,Urine Cloudy (Clear); Bilirubin,Urine Negative (Negative); Blood,Urine Trace (Negative); Color,Urine Yellow; Glucose,Urine (UA) Negative (Negative); Hyaline Casts,Urine 1 /lpf (0-2); Ketones,Urine Trace (Negative); Leukocyte Esterase,Urine Small (Negative); Mucus,Urine Occasional /hpf; Nitrite,Urine Negative (Negative); PH, Urine 5.5 (5.0-8.0); Protein,Urine Trace (Negative); RBC,Urine 13 /hpf (0-5); Specific Gravity,Urine 1.031 (1.001-1.035); Squamous Epithelial Cell,Urine <1 /hpf (0-4); WBC,Urine 3 /hpf (0-5)
--- NOTE | 2021-12-20 18:52 | CT ---
EXAMINATION TYPE: CT brain wo con CT DLP: 1130 mGycm, Automated exposure control for dose reduction was used. DATE OF EXAM: 12/20/2021 5:51 PM COMPARISON: Prior CT Brain from 02/06/2021 CLINICAL INDICATION:Male, 76 years old with history of altered mental status TECHNIQUE: Brain: Multiple axial CT images of the brain were obtained without IV contrast. FINDINGS: Brain: Extra-axial spaces: No abnormal extra-axial fluid collections. Ventricular system: Dilatation in proportion to cerebral atrophy. Cerebral parenchyma: New loss of russell-white differentiation involving the right medial occipitotempor al gyrus. No acute intraparenchymal hemorrhage or mass effect. The remainder of the russell-white junct ions are well differentiated. Scattered hypoattenuating areas are seen within the white matter. Cerebellum: Unremarkable. Mass effect: No evidence of midline shift. Intracranial vasculature: Atherosclerotic calcifications of the intracranial vessels. Soft tissues: Posterior metallic density is unchanged. Calvarium/osseous structures: No depressed skull fracture. Paranasal sinuses and mastoid air cells: Mild scattered paranasal sinus disease. Visualized orbits: Orbital contents are intact. IMPRESSION: 1. 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 2. Nonspecific white matter changes.
[2021-12-20] MEDS ORDERED: ASPIRIN 81 MG PO STA (19:17)
[2021-12-20] MEDS ORDERED: NALOXONE 0.4 MG/ML 1 ML VIAL IV PRN (19:17)
[2021-12-20] MEDS: SODIUM CHLORIDE 0.9% 1,000 ML IV SCH (19:28)
[2021-12-21 06:20] LABS: Glucose,Whole Blood 104 mg/dL (75-99)
[2021-12-21] MEDS ORDERED: ACETAMINOPHEN TAB 325 MG TAB PO PRN (08:24)
[2021-12-21] MEDS: busPIRone HCl 5 MG TAB PO SCH ×2 (08:45→20:47)
[2021-12-21] MEDS: ASPIRIN 81 MG PO SCH (08:45)
[2021-12-21] MEDS: SENNOSIDES-DOCUSATE SODIUM 1 EACH TAB PO SCH ×2 (08:46→20:47)
[2021-12-21] MEDS: FLUoxetine HCL 20 MG CAP PO SCH (08:46)
[2021-12-21] MEDS: FAMOTIDINE 20 MG TAB PO SCH (08:46)
[2021-12-21] MEDS: metFORMIN 500 MG TAB PO SCH (08:46)
[2021-12-21 11:43] LABS: Glucose,Whole Blood 124 mg/dL (75-99)
[2021-12-21] MEDS: traMADol 50 MG TAB PO SCH ×2 (12:12→20:47)
--- NOTE | 2021-12-21 15:45 | P.CNNES ---
History of Present Illness Consult date: 12/21/21 Requesting physician: Aram Khanna Reason for Consult: CVA History of Present Illness: Patient is a 76-year-old male came to the hospital by ambulance yesterday at 4:19 PM. As per EMS flow sheet, patient at baseline is alert oriented 2.5, but yesterday he was only alert oriented 1. Patient has not passed any urine for 8 hours. Patient complained of pain everywhere. He has history of chronic pain. No chest pain difficulty breathing headache dizziness blurred vision. Stroke assessment was negative. Patient appeared dehydrated with cracking lips and poor skin condition. Patient's blood pressure was 136/71, pulse rate 91 respiration 18 saturation 95% and blood glucose 138. Temperature 97.8. On arrival blood pressure 117/64, pulse rate 86, temperature 98.1. Blood test shows normal CBC PT/PTT, normal CMP, UA shows small amount of leukocyte Estrace. Patient's last hemoglobin A1c 6.6 on 07/23/2021. His last LDL 58.5 on 09/06/2021. TSH normal. EKG shows sinus rhythm. CT of the head showed new from prior loss of russell-white differentiation suggesting infarct of the right medial occipital temporal gyrus. Nonspecific white matter changes. I reviewed CT head, agree with the findings. Appears subacute in nature. Patient states that he has been suffering from pain in the jaw (pointing to the angle of the jaw), also pain in the back of the neck bilateral calf region for last 5 weeks. He denies any problem with the vision, blurred vision, double vision or loss of vision. Denies any headache. Denies any slurred speech, focal weakness, numbness or tingling. He states that both calves have been hurting for last 5 weeks. Patient has history of diabetes, denies any tobacco or alcohol use. He lives in a detention. Agent claims that he has been using cane for last 10 years. Patient's home medications include BuSpar 15 mg twice a day, Flomax, Lipitor 10 mg, Prozac 20 mg, trazodone 50 mg tramadol 100 mg every 24 hours when necessary, melatonin, tramadol 100 mg every 12 upper, aspirin 81 mg, Pepcid, Seroquel 25 mg at bedtime and metformin. Review of Systems All 14 point of review systems reviewed as much as patient able to provide answers, as mentioned in HPI. All other review of systems unremarkable. Past Medical History Past Medical History: Dementia, Diabetes Mellitus, Hyperlipidemia, Hypertension, Myocardial Infarction ([place]) Additional Past Medical History / Comment(s): back pain. Diabetes Type II diagnosed in 1956 - Diet controlled. OH 2001 no stents. HTN for years Last Myocardial Infarction Date:: 2001 History of Any Multi-Drug Resistant Organisms: None Reported Past Surgical History: Back Surgery, Cholecystectomy, Pacemaker Additional Past Surgical History / Comment(s): right hand surgery from work injury, Pacemaker in 2018 - Dr Barry out of [facility] Back Surgery L 4 & L5 Dr Alvarado [facility]. Aortic Valve Repalcement - 2001 [facility] Past Anesthesia/Blood Transfusion Reactions: No Reported Reaction Type of Cardiac Device: Permanent Pacemaker Device Placement Date:: 2017 Past Psychological History: Anxiety, Depression Smoking Status: Former smoker Past Alcohol Use History: None Reported Past Drug Use History: None Reported Additional Drug Use History / Comment(s): marijuana 2 gummies daily or bid (20- 40mg daily) - Past Family History Brother(s) Family Medical History: Cancer Additional Family Medical History / Comment(s): from pancreatic ca 2017 Father Family Medical History: Diabetes Mellitus Medications and Allergies Home Medications Medication Instructions Recorded Confirmed Type Atorvastatin [Lipitor] 10 mg PO HS 02/06/21 12/20/21 History FLUoxetine HCL [PROzac] 20 mg PO DAILY 02/06/21 12/20/21 History Tamsulosin HCl [Flomax] 0.4 mg PO HS 02/06/21 12/20/21 History busPIRone HCL 15 mg PO BID 02/06/21 12/20/21 History traZODone HCL [Desyrel] 50 mg PO HS 04/04/21 12/20/21 History Acetaminophen Tab [Tylenol] 650 mg PO Q6HR PRN tab 04/09/21 12/20/21 Rx Healthshake 1 dose PO DAILY@1200 07/15/21 12/20/21 History Melatonin 3 mg PO HS PRN 07/15/21 12/20/21 History traMADol HCL 100 mg PO Q24H PRN 07/15/21 12/20/21 History traMADol HCl [Ultram] 100 mg PO Q12H 07/15/21 12/20/21 History Aspirin 81 mg PO DAILY tab 07/17/21 12/20/21 Rx Famotidine [Pepcid] 20 mg PO DAILY #30 tablet 07/17/21 12/20/21 Rx QUEtiapine [SEROquel] 25 mg PO HS 12/20/21 12/20/21 History Sennosides-Docusate Sodium 2 tab PO BID 12/20/21 12/20/21 History [Senokot-S] metFORMIN HCL [Glucophage] 500 mg PO DAILY 12/20/21 12/20/21 History Allergies Allergy/AdvReac Type Severity Reaction Status Date / Time celecoxib [From Celebrex] Allergy Unknown Verified 12/20/21 17:09 erythromycin base Allergy Unknown Verified 12/20/21 17:09 iron Allergy Unknown Verified 12/20/21 17:09 nitroglycerin Allergy Unknown Verified 12/20/21 17:09 [From Nitro-Bid] penicillin G benethamine Allergy Unknown Verified 12/20/21 17:09 pentazocine [From Talwin] Allergy Unknown Verified 12/20/21 17:09 sulfamethoxazole Allergy Unknown Verified 12/20/21 17:09 [From Bactrim] trimethoprim [From Bactrim] Allergy Unknown Verified 12/20/21 17:09 Physical Examination - Vital Signs Vital Signs: Vital Signs Temp Pulse Pulse Resp BP BP Pulse Ox 12/21/21 07:40 97.8 F 80 16 101/66 96 12/21/21 03:34 98 F 75 17 142/79 97 12/21/21 01:22 70 12/21/21 00:00 97.6 F 77 72 18 126/69 119/77 99 12/20/21 23:00 72 20 114/62 97 12/20/21 22:00 74 20 112/63 98 12/20/21 18:00 74 12 108/60 97 12/20/21 17:00 78 12 108/60 95 12/20/21 16:22 98.1 F 86 14 117/64 95 Intake and Output 12/20/21 12/21/21 12/21/21 22:59 06:59 14:59 Intake Total 30 Balance 30 Intake: Other 30 Other: Voiding Method Diaper # Voids 1 Weight 64.41 kg 64.41 kg Patient is an elderly male, in no acute distress. Patient is alert awake. Patient states it is July, could not tell the year. He states that he is in [facility]. He thinks Obie Rand was a president that he remembers. He could not tell the current or the past president. Speech and language functions are normal. Attention, concentration and fund of knowledge is limited. Patient does have a history of dementia. On cranial nerve examination, pupils are equal, round and reacting to light, visual simpson are full on confrontation, extraocular muscles are intact with no nystagmus. Face is symmetric, tongue protrudes to the midline. Palatal elevation and sensation normal, hearing is slightly decreased and shoulder shrug normal, facial sensation normal. Shoulder shrug normal. On muscle strength testing, there is no pronator drift and the strength is normal in arms and legs distally and proximally. Deep tendon reflexes are 1 in the upper limbs, 1+ in the lower limbs and p lantars downgoing bilaterally. Sensory to touch is equal with no neglect on double simultaneous stimulation. Cerebellar function showed no ataxia for [id number] testing. Tone and bulk of muscles normal. Gait not checked. On general examination, there is no carotid bruit or murmur, S1-S2 audible. Abdomen is soft nontender. Bowel sounds present, no organomegaly. Chest is clear to auscultation. No edema. 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 Patient's NIH stroke scale is 0. Patient not a candidate for TPA, as last known well is unknown. * Patient will undergo carotid Doppler to rule out stenosis * 2-D echo with bubble study to rule out PFO * Hemoglobin A1c * Fasting lipid panel * B12, folate. TSH is normal. * Telemetry monitoring rule out paroxysmal atrial fibrillation. * May need 30 day event monitor as outpatient to rule out PAF. * Patient was already on aspirin 81 mg daily prior to arrival to the hospital. We will add Plavix. After 21 days, stop aspirin and continue Plavix 75 mg daily. * DVT prophylaxis: We will start heparin 5000 units subcu every 12 hours. * Neurology will follow. Thank you for the consult.
[2021-12-21] MEDS: CLOPIDOGREL 75 MG TAB PO SCH (15:50)
[2021-12-21 16:29] LABS: Glucose,Whole Blood 147 mg/dL (75-99)
--- NOTE | 2021-12-21 16:48 | P.HPIM ---
History of Present Illness H&P Date: 12/21/21 Chief Complaint: Altered mentation This is a pleasant 76-year-old patient's of chronic stable medical conditions include cognitive impairment, diabetes, hypertension, hyperlipidemia, acute MD in 2001 with no stents, pacemaker by Dr. Barry and at [facility]. Also had aortic valve replacement in 2001 at the same hospital. Patient is not a good historian. Per the EMS report EMS was called because of change in mental status. He was only oh 1. Patient had decreased urine output. Complaining of pain everywhere. Patient has known chronic pain history of. No fever or chills. No urinary symptoms. No cough or shortness breath. Per the EMS evaluation patient is pending to be a bit dehydrated. Computed tomography scan in the ER showed some loss of russell-white differentiation suspicion for infarct in the right medial occipitotemporal gyrus. Has neurology was consulted. Patient denies any trouble swallowing, change in vision or any new focal weakness. Review of systems: GEN.: None EYES: None HEENT: None NECK: None RESPIRATORY: None CARDIOVASCULAR: None GASTROINTESTINAL: None GENITOURINARY: None MUSCULOSKELETAL: Pain all over LYMPHATICS: None HEMATOLOGICAL: None PSYCHIATRY: Forgetful NEUROLOGICAL: None Past medical history to include: Dementia, diabetes, hyperlipidemia, hypertension, diabetes diet controlled, MD in 2001 with no stents, back surgery, pacemaker in 2018, aortic valve replacement in 2001 with [facility], anxiety depression Social history: Lives with his son. Smoked for about 15 years stopped in 1986. 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 Family history: Pancreatic cancer Physical examination: VITAL SIGNS: 97.8, 18, 16, 101/66, 96% room air GENERAL: BMI 24.4, sitting in bed awake, comfortable. EYES: Pupils equal. Conjunctiva normal. HEENT: External appearance of nose and ears normal, oral cavity grossly normal. NECK: JVD not raised; masses not palpable. HEART: First and second heart sounds are normal; no edema. LUNGS: Respiratory rate normal; clear to auscultation. ABDOMEN: Soft, nontender, liver spleen not palpable, no masses palpable. PSYCH: Patient thinks he is at some kind her children's home. Year 1966. Possibly ventilatorl. MUSCULOSKELETAL:No Clubbing/cyanosis;muscles-grossly intact. Evidence of OA NEUROLOGICAL: Cranial nerves grossly intact; no facial asymmetry, power and sensation grossly intact. LYMPHATICS: No lymph nodes palpable in the axilla and neck INVESTIGATIONS, reviewed in the clinical context: White count 8.2 hemoglobin 12.7 platelets 253 potassium 3.9 creatinine 0.97 EKG tracing personally reviewed by me-normal sinus rhythm. ST-T wave changes. CT brain: Loss of russell-white differentiation suggesting infarct on the right medial occipitotemporal sinus.Nonspecific white matter changes Assessment and plan: -Patient sent in from the [facility] or change in mental status. No focal symptoms. Patient does not believe that he is in the hospital, he has 1966. Not sure about the weather. Possible acute stroke Neurology consulted. Neuro checks. Aspirin. -Diabetes mellitus type 2, on oral hypoglycemic Metformin. Follow Accu-Cheks -Hyperlipidemia Lipitor 10 mg daily at bedtime -BPH Flomax 0.4 mg daily at bedtime -Permanent pacemaker -Cognitive impairment. -Primary osteoarthritis multiple joints bilaterally Pain control -Anxiety depression otherwise specified Prozac 20 mg daily, Seroquel 25 mg daily at bedtime BuSpar 15 mg twice a day -Chronic insomnia from multiple medical problems Desyrel 50 mg daily at bedtime Plavix added. Increase Lipitor. Carotid Doppler. 2-D echocardiogram. Subcu Lovenox. Past Medical History Past Medical History: Dementia, Diabetes Mellitus, Hyperlipidemia, Hypertension, Myocardial Infarction ([place]) Additional Past Medical History / Comment(s): back pain. Diabetes Type II diagnosed in 1956 - Diet controlled. MD 2001 no stents. HTN for years Last Myocardial Infarction Date:: 2001 History of Any Multi-Drug Resistant Organisms: None Reported Past Surgical History: Back Surgery, Cholecystectomy, Pacemaker Additional Past Surgical History / Comment(s): right hand surgery from work injury, Pacemaker in 2017 - Dr Barry out of [facility] Back Surgery L 4 & L5 Dr Alvarado [facility]. Aortic Valve Re palcement - 2001 [facility] Past Anesthesia/Blood Transfusion Reactions: No Reported Reaction Type of Cardiac Device: Permanent Pacemaker Device Placement Date:: 2017 Past Psychological History: Anxiety, Depression Smoking Status: Former smoker Past Alcohol Use History: None Reported Past Drug Use History: None Reported Additional Drug Use History / Comment(s): marijuana 2 gummies daily or bid (20- 40mg daily) - Past Family History Brother(s) Family Medical History: Cancer Additional Family Medical History / Comment(s): from pancreatic ca 2018 Father Family Medical History: Diabetes Mellitus Medications and Allergies Home Medications Medication Instructions Recorded Confirmed Type Atorvastatin [Lipitor] 10 mg PO HS 02/06/21 12/20/21 History FLUoxetine HCL [PROzac] 20 mg PO DAILY 02/06/21 12/20/21 History Tamsulosin HCl [Flomax] 0.4 mg PO HS 02/06/21 12/20/21 History busPIRone HCL 15 mg PO BID 02/06/21 12/20/21 History traZODone HCL [Desyrel] 50 mg PO HS 04/04/21 12/20/21 History Acetaminophen Tab [Tylenol] 650 mg PO Q6HR PRN tab 04/09/21 12/20/21 Rx Healthshake 1 dose PO DAILY@1200 07/15/21 12/20/21 History Melatonin 3 mg PO HS PRN 07/15/21 12/20/21 History traMADol HCL 100 mg PO Q24H PRN 07/15/21 12/20/21 History traMADol HCl [Ultram] 100 mg PO Q12H 07/15/21 12/20/21 History Aspirin 81 mg PO DAILY tab 07/17/21 12/20/21 Rx Famotidine [Pepcid] 20 mg PO DAILY #30 tablet 07/17/21 12/20/21 Rx QUEtiapine [SEROquel] 25 mg PO HS 12/20/21 12/20/21 History Sennosides-Docusate Sodium 2 tab PO BID 12/20/21 12/20/21 History [Senokot-S] metFORMIN HCL [Glucophage] 500 mg PO DAILY 12/20/21 12/20/21 History Allergies Allergy/AdvReac Type Severity Reaction Status Date / Time celecoxib [From Celebrex] Allergy Unknown Verified 12/20/21 17:09 erythromycin base Allergy Unknown Verified 12/20/21 17:09 iron Allergy Unknown Verified 12/20/21 17:09 nitroglycerin Allergy Unknown Verified 12/20/21 17:09 [From Nitro-Bid] penicillin G benethamine Allergy Unknown Verified 12/20/21 17:09 pentazocine [From Talwin] Allergy Unknown Verified 12/20/21 17:09 sulfamethoxazole Allergy Unknown Verified 12/20/21 17:09 [From Bactrim] trimethoprim [From Bactrim] Allergy Unknown Verified 12/20/21 17:09 Physical Exam Vitals: Vital Signs Temp Pulse Pulse Resp BP BP Pulse Ox 12/21/21 07:40 97.8 F 80 16 101/66 96 12/21/21 03:34 98 F 75 17 142/79 97 12/21/21 01:22 70 12/21/21 00:00 97.6 F 77 72 18 126/69 119/77 99 12/20/21 23:00 72 20 114/62 97 12/20/21 22:00 74 20 112/63 98 12/20/21 18:00 74 12 108/60 97 12/20/21 17:00 78 12 108/60 95 12/20/21 16:22 98.1 F 86 14 117/64 95 Intake and Output 12/20/21 12/21/21 12/21/21 22:59 06:59 14:59 Intake Total 30 Balance 30 Intake: Other 30 Other: Voiding Method Diaper # Voids 1 Weight 64.41 kg 64.41 kg Results CBC & Chem 7: 12/20/21 17:12 12/20/21 17:10 Labs: Abnormal Lab Results - Last 24 Hours (Table) 12/20/21 12/20/21 12/20/21 Range/Units 17:10 17:12 17:12 Hgb 12.7 L (13.0-17.5) gm/dL BUN 23 H (9-20) mg/dL Glucose 137 H (74-99) mg/dL POC Glucose (mg/dL) (75-99) mg/dL Total Protein 6.2 L (6.3-8.2) g/dL Urine Protein Trace H (Negative) Urine Ketones Trace H (Negative) Urine Blood Trace H (Negative) Ur Leukocyte Esterase Small H (Negative) Urine RBC 13 H (0-5) /hpf Amorphous Sediment Rare H (None) /hpf Urine Mucus Occasional H (None) /hpf 12/21/21 Range/Units 06:13 Hgb (13.0-17.5) gm/dL BUN (9-20) mg/dL Glucose (74-99) mg/dL POC Glucose (mg/dL) 104 H (75-99) mg/dL Total Protein (6.3-8.2) g/dL Urine Protein (Negative) Urine Ketones (Negative) Urine Blood (Negative) Ur Leukocyte Esterase (Negative) Urine RBC (0-5) /hpf Amorphous Sediment (None) /hpf Urine Mucus (None) /hpf Thrombosis Risk Factor Assmnt - Choose All That Apply Any of the Below Risk Factors Present?: Yes Each Risk Factor Represents 3 Points: Age 75 years or older Thrombosis Risk Factor Assessment Total Risk Factor Score: 3 Thrombosis Risk Factor Assessment Level: Moderate Risk
--- NOTE | 2021-12-21 17:29 | US ---
EXAMINATION TYPE: US carotid duplex BILAT DATE OF EXAM: 12/21/2021 COMPARISON: NONE CLINICAL HISTORY: CVA. CVA EXAM MEASUREMENTS: RIGHT: Peak Systolic Velocity (PSV) cm/sec ----- Right CCA: 59.5 ----- Right ICA: 88.5 ----- Right ECA: 132.2 ICA/CCA ratio: 1.5 RIGHT: End Diastole cm/sec ----- Right CCA: 8.6 ----- Right ICA: 18.8 ----- Right ECA: 0 LEFT: Peak Systolic Velocity (PSV) cm/sec ----- Left CCA: 95.0 ----- Left ICA: 115.9 ----- Left ECA: 125.2 ICA/CCA ratio: 1.2 LEFT: End Diastole cm/sec ----- Left CCA: 16 ----- Left ICA: 20.7 ----- Left ECA: 0 VERTEBRALS (direction of flow): Right Vertebral: Antegrade Left Vertebral: Antegrade Rhythm: Normal No significant stenosis seen IMPRESSION: Less than 50% stenosis of the bilateral carotid bifurcations. Criteria for Assigning % of Stenosis / Diameter reduction (Estimation based on the indirect measurements of the internal carotid artery velocities (ICA PSV). 1. Normal (no stenosis)=ICA PSV < 125 cm/s: ratio < 2.0: ICA EDV<40 cm/s. 2. Less than 50% stenosis=ICA PSV < 125 cm/s: ratio < 2.0: ICA EDV<40 cm/s. 3. 50 to 69% stenosis=ICA PSV of 125 to 230 cm/s: ration 2.0 ? 4.0: ICA EDV 40-100 cm/s. 4. Greater than 70% stenosis to near occlusion= ICA PSV > 230 cm/s: ratio > 4.0: ICA EDV > 100 cm/s. 5. Near occlusion= ICA PSV velocities may be low or undetectable: variable ratio and ICA EDV. 6. Total occlusion=unable to detect flow.
--- NOTE | 2021-12-21 18:19 | XR ---
EXAMINATION TYPE: XR chest 1V DATE OF EXAM: 12/21/2021 6:10 PM COMPARISON: Chest radiographs from 04/04/2021 TECHNIQUE: XR chest 1V Frontal view of the chest. CLINICAL INDICATION:Male, 76 years old with history of Rule out pneumonia; FINDINGS: Lungs/Pleura: There is no evidence of pleural effusion, focal consolidation, or pneumothorax. Pulmonary vascularity: Unremarkable. Heart/mediastinum: Cardiomediastinal silhouette is prominent in size. Two lead cardiac conduction dev ice overlying the left hemithorax with lead tips projecting over the right ventricle and right atrium . Musculoskeletal: No acute osseous pathology. IMPRESSION: No acute cardiopulmonary disease/process.
[2021-12-21 20:40] LABS: Glucose,Whole Blood 110 mg/dL (75-99)
[2021-12-21] MEDS: traZODone HCL 50 MG TAB PO SCH (20:46)
[2021-12-21] MEDS: ATORVASTATIN 40 MG TAB PO SCH (20:46)
[2021-12-21] MEDS: MELATONIN 3 MG TABLET PO PRN (20:46)
[2021-12-21] MEDS: TAMSULOSIN 0.4 MG CAP.ER.24H PO SCH (20:47)
[2021-12-21] MEDS: QUEtiapine 25 MG TAB PO SCH (20:47)
[2021-12-21] MEDS: HEPARIN SODIUM,PORCINE/PF 5,000 UNIT/0.5 ML SYRINGE SQ SCH (20:47)
[2021-12-21] MEDS ORDERED: ATORVASTATIN 10 MG TAB PO SCH (21:00)
[2021-12-21] MEDS: SODIUM CHLORIDE 0.9% 1,000 ML IV SCH (23:53)
[2021-12-22 06:06] LABS: Glucose,Whole Blood 95 mg/dL (75-99)
[2021-12-22 08:56] LABS: Chol/HDL Ratio 4.35 Ratio; LDL Cholesterol,Calculated 39.4 mg/dL (0.0-131.0)
[2021-12-22] MEDS: traMADol 50 MG TAB PO SCH ×2 (09:51→21:44)
[2021-12-22] MEDS: FLUoxetine HCL 20 MG CAP PO SCH (09:53)
[2021-12-22] MEDS: SENNOSIDES-DOCUSATE SODIUM 1 EACH TAB PO SCH ×2 (09:53→21:46)
[2021-12-22] MEDS: metFORMIN 500 MG TAB PO SCH (09:53)
[2021-12-22] MEDS: ASPIRIN 81 MG PO SCH (09:53)
[2021-12-22] MEDS: HEPARIN SODIUM,PORCINE/PF 5,000 UNIT/0.5 ML SYRINGE SQ SCH ×2 (09:54→21:44)
[2021-12-22] MEDS: FAMOTIDINE 20 MG TAB PO SCH (09:54)
[2021-12-22] MEDS: busPIRone HCl 5 MG TAB PO SCH ×2 (09:54→21:43)
[2021-12-22] MEDS: CLOPIDOGREL 75 MG TAB PO SCH (09:55)
[2021-12-22 11:24] LABS: Glucose,Whole Blood 148 mg/dL (75-99)
--- NOTE | 2021-12-22 13:27 | P.PN ---
Progress Note - Text Progress Note Date: 12/22/21 Chief Complaint: Altered mentation This is a pleasant 76-year-old patient's of chronic stable medical conditions include cognitive impairment, diabetes, hypertension, hyperlipidemia, acute CO in 2001 with no stents, pacemaker by Dr. Barry and at [facility]. Also had aortic valve replacement in 2001 at the same hospital. Patient is not a good historian. Per the EMS report EMS was called because of change in mental status. He was only oh 1. Patient had decreased urine output. Complaining of pain everywhere. Patient has known chronic pain history of. No fever or chills. No urinary symptoms. No cough or shortness breath. Per the EMS evaluation patient is pending to be a bit dehydrated. Computed tomography scan in the ER showed some loss of russell-white differentiation suspicion for infarct in the right medial occipitotemporal gyrus. Has neurology was consulted. Patient denies any trouble swallowing, change in vision or any new focal weakness. Admitted with acute sub-acute stroke. Aspirin. Plavix. Lipitor. December 22: Complaining of generalized pain. Eating okay. Oriented to self. 2-D echo pending. Active Medications Acetaminophen (Acetaminophen Tab 325 Mg Tab) 650 mg PO Q6HR PRN PRN Reason: Fever and/ or Pain Last Admin: 12/21/21 08:46 Dose: 650 mg Aspirin (Aspirin 81 Mg) 81 mg PO DAILY [facility] Last Admin: 12/22/21 09:53 Dose: 81 mg Atorvastatin Calcium (Atorvastatin 40 Mg Tab) 40 mg PO HS [facility] Last Admin: 12/21/21 20:46 Dose: 40 mg Buspirone HCl (Buspirone Hcl 5 Mg Tab) 15 mg PO BID [facility] Last Admin: 12/22/21 09:54 Dose: 15 mg Clopidogrel Bisulfate (Clopidogrel 75 Mg Tab) 75 mg PO DAILY [facility] Last Admin: 12/22/21 09:55 Dose: 75 mg Famotidine (Famotidine 20 Mg Tab) 20 mg PO DAILY [facility] Last Admin: 12/22/21 09:54 Dose: 20 mg Fluoxetine HCl (Fluoxetine Hcl 20 Mg Cap) 20 mg PO DAILY [facility] Last Admin: 12/22/21 09:53 Dose: 20 mg Heparin Sodium (Porcine) (Heparin Sodium,Porcine/Pf 5,000 Unit/0.5 Ml Syringe) 5,000 unit SQ Q12HR [facility] Last Admin: 12/22/21 09:54 Dose: 5,000 unit Sodium Chloride (Saline 0.9%) 1,000 mls @ 20 mls/hr IV .Q24H [facility] Last Admin: 12/21/21 23:53 Dose: Not Given Melatonin (Melatonin 3 Mg Tablet) 3 mg PO HS PRN PRN Reason: Insomnia Last Admin: 12/21/21 20:46 Dose: 3 mg Metformin HCl (Metformin 500 Mg Tab) 500 mg PO DAILY [facility] Last Admin: 12/22/21 09:53 Dose: 500 mg Naloxone HCl (Naloxone 0.4 Mg/Ml 1 Ml Vial) 0.2 mg IV Q2M PRN PRN Reason: Opioid Reversal Quetiapine Fumarate (Quetiapine 25 Mg Tab) 25 mg PO [facility] Last Admin: 12/21/21 20:47 Dose: 25 mg Senna/Docusate Sodium (Sennosides-Docusate Sodium 1 Each Tab) 2 each PO BID [facility] Last Admin: 12/22/21 09:53 Dose: 2 each Tamsulosin HCl (Tamsulosin 0.4 Mg Cap.Er.24h) 0.4 mg PO [facility] Last Admin: 12/21/21 20:47 Dose: 0.4 mg Tramadol HCl (Tramadol 50 Mg Tab) 100 mg PO Q12HR [facility] Last Admin: 12/22/21 09:51 Dose: 100 mg Trazodone HCl (Trazodone Hcl 50 Mg Tab) 50 mg PO [facility] Last Admin: 12/21/21 20:46 Dose: 50 mg Past medical history to include: Dementia, diabetes, hyperlipidemia, hypertension, diabetes diet controlled, CO in 2001 with no stents, back surgery, pacemaker in 2018, aortic valve replacement in 2001 with [facility], anxiety depression Social history: Lives with his son. Smoked for about 15 years stopped in 1986. 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 Family history: Pancreatic cancer Physical examination: VITAL SIGNS: 97.5, 75, 16, 10 9 x 71, 96% room air GENERAL: Declining in bed, comfortable. EYES: Pupils equal. Conjunctiva normal. HEENT: External appearance of nose and ears normal, oral cavity grossly normal. NECK: JVD not raised; masses not palpable. HEART: First and second heart sounds are normal; no edema. LUNGS: Respiratory rate normal; clear to auscultation. ABDOMEN: Soft, nontender, liver spleen not palpable, no masses palpable. PSYCH: Patient thinks he is at some kind her children's home. Year 1965. He thinks it is winter MUSCULOSKELETAL:No Clubbing/cyanosis;muscles-grossly intact. Evidence of OA NEUROLOGICAL: Cranial nerves grossly intact; no facial asymmetry, power and sensation grossly intact. INVESTIGATIONS, reviewed in the clinical context: Carotid Doppler: Less than 50% stenosis bilaterally. An bifurcation B12: Normal. Folate: Normal. White count 8.2 hemoglobin 12.7 platelets 253 potassium 3.9 creatinine 0.97 EKG tracing personally reviewed by me-normal sinus rhythm. ST-T wave changes. CT brain: Loss of russell-white differentiation suggesting infarct on the right medial occipitotemporal sinus.Nonspecific white matter changes Chest x-ray film personally reviewed by me-some right diaphragm elevation. Some hyperinflation Assessment and plan: -Patient sent in from the [facility] or change in mental status. No focal symptoms. Patient does not believe that he is in the hospital, he has 1965. Not sure about the weather. Possible sub-acute stroke Neurology consulted. Neuro checks. Aspirin. Plavix. Lipitor. Pending 2-D echocardiogram. Carotid Doppler unremarkable -Diabetes mellitus type 2, on oral hypoglycemic Metformin. Follow Accu-Cheks -Hyperlipidemia Lipitor 10 mg daily at bedtime -BPH Flomax 0.4 mg daily at bedtime -Permanent pacemaker -Cognitive impairment. -Primary osteoarthritis multiple joints bilaterally Pain control -Anxiety depression otherwise specified Prozac 20 mg daily, Seroquel 25 mg daily at bedtime BuSpar 15 mg twice a day -Chronic insomnia from multiple medical problems Desyrel 50 mg daily at bedtime Pending 2-D echocardiogram. Other medications to continue. Change Tylenol to scheduled 4 times a day
[2021-12-22 16:36] LABS: Glucose,Whole Blood 114 mg/dL (75-99)
[2021-12-22] MEDS: ACETAMINOPHEN TAB 325 MG TAB PO SCH ×2 (17:40→17:44)
[2021-12-22 20:40] LABS: Glucose,Whole Blood 134 mg/dL (75-99)
[2021-12-22] MEDS: ATORVASTATIN 40 MG TAB PO SCH (21:43)
[2021-12-22] MEDS: QUEtiapine 25 MG TAB PO SCH (21:44)
[2021-12-22] MEDS: traZODone HCL 50 MG TAB PO SCH (21:44)
[2021-12-22] MEDS: TAMSULOSIN 0.4 MG CAP.ER.24H PO SCH (21:44)
[2021-12-22] MEDS: MELATONIN 3 MG TABLET PO PRN (21:44)
[2021-12-22] MEDS: SODIUM CHLORIDE 0.9% 1,000 ML IV SCH (21:45)
[2021-12-22] MEDS: CYANOCOBALAMIN 500 MCG TAB PO SCH (21:46)
[2021-12-23] MEDS: ACETAMINOPHEN TAB 325 MG TAB PO SCH ×4 (04:23→17:37)
[2021-12-23 06:27] LABS: Glucose,Whole Blood 109 mg/dL (75-99)
[2021-12-23] MEDS: FAMOTIDINE 20 MG TAB PO SCH (09:14)
[2021-12-23] MEDS: busPIRone HCl 5 MG TAB PO SCH ×2 (09:15→20:09)
[2021-12-23] MEDS: CYANOCOBALAMIN 500 MCG TAB PO SCH (09:15)
[2021-12-23] MEDS: SENNOSIDES-DOCUSATE SODIUM 1 EACH TAB PO SCH ×2 (09:15→20:09)
[2021-12-23] MEDS: ASPIRIN 81 MG PO SCH (09:15)
[2021-12-23] MEDS: CLOPIDOGREL 75 MG TAB PO SCH (09:16)
[2021-12-23] MEDS: metFORMIN 500 MG TAB PO SCH (09:16)
[2021-12-23] MEDS: traMADol 50 MG TAB PO SCH ×2 (09:16→20:09)
[2021-12-23] MEDS: FLUoxetine HCL 20 MG CAP PO SCH (09:16)
[2021-12-23] MEDS: HEPARIN SODIUM,PORCINE/PF 5,000 UNIT/0.5 ML SYRINGE SQ SCH ×2 (09:17→20:09)
--- NOTE | 2021-12-23 11:10 | CA ---
Transthoracic Echo Report Name: Tommie Smith Age: 76 Gender: M : 1945 Exam Date: 12/22/2021 08:22 Exam Location: [place] [facility] Ht (in): 64 Wt (lb): 142 Ordering Physician: Erma Longoria MD Attending/Referring Phys: Sky Line Yarder Zulma Orozco RDCS Procedure CPT: Indications: acute CVA Cardiac Hx: Technical Quality: Very technically difficult study Contrast 1: Total Dose (mL): Contrast 2: Total Dose (mL): MEASUREMENTS (Male / Female) Normal Values 2D ECHO LV Diastolic Diameter PLAX 3.4 cm 4.2 - 5.9 / 3.9 - 5.3 cm LV Systolic Diameter PLAX 3.1 cm IVS Diastolic Thickness 1.5 cm 0.6 - 1.0 / 0.6 - 0.9 cm LVPW Diastolic Thickness 1.5 cm 0.6 - 1.0 / 0.6 - 0.9 cm LV Relative Wall Thickness 0.9 RV Internal Dim ED PLAX 3.3 cm M-MODE Aortic Root Diameter MM 3.3 cm LA Systolic Diameter MM 4.3 cm LA Ao Ratio MM 1.3 DOPPLER MV Area PHT 2.5 cm??? Mitral E Point Velocity 37.3 cm/s Mitral A Point Velocity 62.2 cm/s Mitral E to A Ratio 0.6 MV Deceleration Time 305.3 ms TR Peak Velocity 252.6 cm/s TR Peak Gradient 25.5 mmHg Right Ventricular Systolic Press 30.5 mmHg FINDINGS Left Ventricle Left ventricular ejection fraction is estimated at 50-55 %. Right Ventricle Normal right ventricular size and function. Right Atrium Right atrium not well visualized. Left Atrium Normal left atrial size. BUBBLE STUDY NOT PERFORMED DUE TO TDS. Mitral Valve Mitral valve not well visualized. Aortic Valve Aortic valve not well visualized. Tricuspid Valve Tricuspid valve not well visualized. Pulmonic Valve Pulmonic valve not well visualized. Pericardium Echo free space anterior to the right ventricle likely represents a fat pad. Aorta Aortic root and proximal ascending aorta not well visualized. CONCLUSIONS #1. Normal left ventricle function. #2. Concentric left ventricle hypertrophy. #3. Bubble study could not be performed because of the tediousness of the study. #4. Echo free space suggestive of small pericardial effusion localized to the right ventricular free wall area. Previewed by: Dr. William Thomas MD (Electronically Signed) Final Date: 23 December 2021 11:09
[2021-12-23 11:52] LABS: Glucose,Whole Blood 171 mg/dL (75-99)
--- NOTE | 2021-12-23 16:32 | P.PN ---
Progress Note - Text Progress Note Date: 12/23/21 Chief Complaint: Altered mentation This is a pleasant 76-year-old patient's of chronic stable medical conditions include cognitive impairment, diabetes, hypertension, hyperlipidemia, acute ID in 2001 with no stents, pacemaker by Dr. Barry and at [facility]. Also had aortic valve replacement in 2001 at the same hospital. Patient is not a good historian. Per the EMS report EMS was called because of change in mental status. He was only oh 1. Patient had decreased urine output. Complaining of pain everywhere. Patient has known chronic pain history of. No fever or chills. No urinary symptoms. No cough or shortness breath. Per the EMS evaluation patient is pending to be a bit dehydrated. Computed tomography scan in the ER showed some loss of russell-white differentiation suspicion for infarct in the right medial occipitotemporal gyrus. Has neurology was consulted. Patient denies any trouble swallowing, change in vision or any new focal weakness. Admitted with acute sub-acute stroke. Aspirin. Plavix. Lipitor. December 22: Complaining of generalized pain. Eating okay. Oriented to self. 2-D echo pending. December 23: Patient's pain is better because of scheduled Tylenol. Oral intake fair. 2-D echo results noted. Active Medications Acetaminophen (Acetaminophen Tab 325 Mg Tab) 650 mg PO QID [facility] Last Admin: 12/23/21 12:32 Dose: 650 mg Aspirin (Aspirin 81 Mg) 81 mg PO DAILY [facility] Last Admin: 12/23/21 09:15 Dose: 81 mg Atorvastatin Calcium (Atorvastatin 40 Mg Tab) 40 mg PO HS [facility] Last Admin: 12/22/21 21:43 Dose: 40 mg Buspirone HCl (Buspirone Hcl 5 Mg Tab) 15 mg PO BID [facility] Last Admin: 12/23/21 09:15 Dose: 15 mg Clopidogrel Bisulfate (Clopidogrel 75 Mg Tab) 75 mg PO DAILY [facility] Last Admin: 12/23/21 09:16 Dose: 75 mg Cyanocobalamin (Cyanocobalamin 500 Mcg Tab) 1,000 mcg PO DAILY [facility] Last Admin: 12/23/21 09:15 Dose: 1,000 mcg Famotidine (Famotidine 20 Mg Tab) 20 mg PO DAILY [facility] Last Admin: 12/23/21 09:14 Dose: 20 mg Fluoxetine HCl (Fluoxetine Hcl 20 Mg Cap) 20 mg PO DAILY [facility] Last Admin: 12/23/21 09:16 Dose: 20 mg Heparin Sodium (Porcine) (Heparin Sodium,Porcine/Pf 5,000 Unit/0.5 Ml Syringe) 5,000 unit SQ Q12HR [facility] Last Admin: 12/23/21 09:17 Dose: 5,000 unit Sodium Chloride (Saline 0.9%) 1,000 mls @ 20 mls/hr IV .Q24H [facility] Last Admin: 12/22/21 21:45 Dose: 20 mls/hr Melatonin (Melatonin 3 Mg Tablet) 3 mg PO HS PRN PRN Reason: Insomnia Last Admin: 12/22/21 21:44 Dose: 3 mg Metformin HCl (Metformin 500 Mg Tab) 500 mg PO DAILY [facility] Last Admin: 12/23/21 09:16 Dose: 500 mg Naloxone HCl (Naloxone 0.4 Mg/Ml 1 Ml Vial) 0.2 mg IV Q2M PRN PRN Reason: Opioid Reversal Quetiapine Fumarate (Quetiapine 25 Mg Tab) 25 mg PO [facility] Last Admin: 12/22/21 21:44 Dose: 25 mg Senna/Docusate Sodium (Sennosides-Docusate Sodium 1 Each Tab) 2 each PO BID [facility] Last Admin: 12/23/21 09:15 Dose: 2 each Tamsulosin HCl (Tamsulosin 0.4 Mg Cap.Er.24h) 0.4 mg PO [facility] Last Admin: 12/22/21 21:44 Dose: 0.4 mg Tramadol HCl (Tramadol 50 Mg Tab) 100 mg PO Q12HR [facility] Last Admin: 12/23/21 09:16 Dose: 100 mg Trazodone HCl (Trazodone Hcl 50 Mg Tab) 50 mg PO [facility] Last Admin: 12/22/21 21:44 Dose: 50 mg Past medical history to include: Dementia, diabetes, hyperlipidemia, hypertension, diabetes diet controlled, ID in 2001 with no stents, back surgery, pacemaker in 2018, aortic valve replacement in 2001 with [facility], anxiety depression Social history: Lives with his son. Smoked for about 15 years stopped in 1986. 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 Family history: Pancreatic cancer Physical examination: VITAL SIGNS: In 0.6, 97, 12, 115/75, 95% room air GENERAL: He planning in bed, comfortable. EYES: Pupils equal. Conjunctiva normal. HEENT: External appearance of nose and ears normal, oral cavity grossly normal. NECK: JVD not raised; masses not palpable. HEART: First and second heart sounds are normal; no edema. LUNGS: Respiratory rate normal; clear to auscultation. ABDOMEN: Soft, nontender, liver spleen not palpable, no masses palpable. PSYCH: Patient thinks he is at some kind her children's home. Year 1965. He thinks it is winter MUSCULOSKELETAL:No Clubbing/cyanosis;muscles-grossly intact. Evidence of OA NEUROLOGICAL: Cranial nerves grossly intact; no facial asymmetry, power and sensation grossly intact. INVESTIGATIONS, reviewed in the clinical context: 2-D echocardiogram. Normal LV function. Concentric LVH. Bubble study not done Carotid Doppler: Less than 50% stenosis bilaterally. An bifurcation B12: Normal. Folate: Normal. White count 8.2 hemoglobin 12.7 platelets 253 potassium 3.9 creatinine 0.97 EKG tracing personally reviewed by me-normal sinus rhythm. ST-T wave changes. CT brain: Loss of russell-white differentiation suggesting infarct on the right medial occipitotemporal sinus.Nonspecific white matter changes Chest x-ray film personally reviewed by me-some right diaphragm elevation. Some hyperinflation Assessment and plan: -Patient sent in from the [facility] or change in mental status. No focal symptoms. Patient does not believe that he is in the hospital, he has 1965. Not sure about the weather. Possible sub-acute stroke Neurology consulted. Neuro checks. Aspirin. Plavix. Lipitor. . Carotid Doppler unremarkable -Diabetes mellitus type 2, on oral hypoglycemic Metformin. Follow Accu-Cheks -Hyperlipidemia Lipitor 10 mg daily at bedtime -BPH Flomax 0.4 mg daily at bedtime -Permanent pacemaker -Cognitive impairment. -Primary osteoarthritis multiple joints bilaterally Pain control -Anxiety depression otherwise specified Prozac 20 mg daily, Seroquel 25 mg daily at bedtime BuSpar 15 mg twice a day -Chronic insomnia from multiple medical problems Desyrel 50 mg daily at bedtime Continue current medications. Hopefully discharged to [facility] tomorrow.
[2021-12-23 16:40] LABS: Glucose,Whole Blood 133 mg/dL (75-99)
[2021-12-23] MEDS: ATORVASTATIN 40 MG TAB PO SCH (20:09)
[2021-12-23] MEDS: TAMSULOSIN 0.4 MG CAP.ER.24H PO SCH (20:09)
[2021-12-23] MEDS: QUEtiapine 25 MG TAB PO SCH (20:09)
[2021-12-23] MEDS: traZODone HCL 50 MG TAB PO SCH (20:09)
[2021-12-23 20:16] LABS: Glucose,Whole Blood 146 mg/dL (75-99)
[2021-12-24] MEDS: ACETAMINOPHEN TAB 325 MG TAB PO SCH ×5 (00:04→22:32)
[2021-12-24 05:58] LABS: Glucose,Whole Blood 83 mg/dL (75-99)
--- NOTE | 2021-12-24 07:03 | P.PN ---
Subjective Progress Note Date: 12/22/21 Patient was seen for a follow-up. Patient is laying comfortably in the bed. Offers no complaints. Patient complains of headache . States aches in the eyeball. Telemetry monitoring showing atrial paced rhythm with a heart rate of 69. Objective - Vital Signs Vital signs: Vital Signs Temp 98.4 F 12/23/21 20:10 Pulse 76 12/24/21 04:20 Resp 18 12/24/21 04:20 BP 123/68 12/24/21 04:20 Pulse Ox 97 12/24/21 04:20 FiO2 Intake & Output 12/23/21 12/23/21 12/24/21 06:59 18:59 06:59 Intake Total 548 Output Total 260 200 100 Balance -260 348 -100 Intake: Intake, IV Titration 200 Amount Sodium Chloride 0.9% 1, 200 000 ml @ 20 mls/hr IV . Q24H [facility] Rx#:[id number] Oral 348 Output: Urine 260 200 Post Void Residual 100 Other: Voiding Method Urinal Urinal Incontinent Incontinent # Voids 2 # Bowel Movements 1 - Exam Patient is slightly somnolent, but otherwise alert and awake. Speech and language functions are normal. Patient states it is June and will be ry. The year is 2064. Pupils are equal, round and reacting. Visual simpson are full on confrontation with no neglect. Face is symmetric. Tongue protrudes the midline. On muscle strength testing no pronator drift and the strength is normal in arms and legs. No ataxia. Sensory to touch is equal. - Labs CBC & Chem 7: 12/20/21 17:12 12/20/21 17:10 Labs: Abnormal Lab Results - Last 24 Hours (Table) 12/23/21 12/23/21 12/23/21 Range/Units 11:50 16:35 20:14 POC Glucose (mg/dL) 171 H 133 H 146 H (75-99) mg/dL Assessment and Plan Assessment: * Subacute ischemic CVA involving the right medial occipital region noted on computed tomography scan of the head * Dementia * Diabetes * Hyperlipidemia * Hypertension * Coronary artery disease * Pacemaker Plan: * Patient has acute CVA noted on computed tomography scan of the head. Patient's NIH stroke scale is 0. Patient not a candidate for TPA, as last known well is unknown. * Carotid Doppler revealed less than 50% stenosis of bilateral ICA, antegrade flow in both vertebral arteries. * 2-D echo with bubble study was an extremely poor study. Left-ventricular ejection fraction is 50-55%. Normal right ventricular size and function, right Atrium not well visualized, normal left atrial size. Bubble study not performed due to TDS, mitral valve, aortic valve, tricuspid valve, pulmonary valve could not be well-visualized. Aortic root and proximal ascending aorta not well visualized. Patient has an embolic stroke. Needs cardiac thorough evaluation. We will consult cardiology for possible BETI. * Hemoglobin A1c 6.5 * Fasting lipid panel cholesterol 101, LDL 39.4, HDL 23, triglycerides 192. Continue Lipitor 40 mg daily. * B12 317, folate 10.40. TSH 1.52 is normal. We'll start oral B12 replacement. * Patient complaining of headache. We will check ESR, CRP. * Telemetry monitoring showing atrial paced rhythm at 69. * Patient complaining of headache. We will check ESR, CRP. * May need 30 day event monitor as outpatient to rule out PAF. * Patient was already on aspirin 81 mg daily prior to arrival to the hospital. We will add Plavix. After 21 days, stop aspirin and continue Plavix 75 mg daily. * DVT prophylaxis: We will start heparin 5000 units subcu every 12 hours. * Repeat CT head because of persistent headache. Patient cannot have MRI because of pacemaker. * Dr. Chema Strickland will be resuming neurology service from Friday.
--- NOTE | 2021-12-24 08:49 | CT ---
EXAMINATION TYPE: CT brain wo con DATE OF EXAM: 12/24/2021 COMPARISON: CT dated 12/20/2021 HISTORY: Altered mental status. CT DLP: 1202.4 mGycm Automated exposure control for dose reduction was used. TECHNIQUE: CT scan of the brain is performed without IV contrast administration. FINDINGS: Slightly increased density of the previously seen right medial temporo-occipital cortical and subcort ical infarct likely representing a fogging phenomenon. Brain volume loss changes, likely age-related. Mild bilateral cerebral white matter hypodensity likely representing mild chronic microvascular isch emic changes. No acute intracranial hemorrhage. No other gross acute cortical infarct. No midline shift, herniation or ventriculomegaly. Unremarkable basal cisterns, sella and CP angles. No gross space-occupying lesion or mass effect. Unremarkable orbits. Stable scattered millimetric metallic densities. Clear visualized paranasal sinu ses and mastoid air cells. No aggressive bone lesion. IMPRESSION: Changes of expected evolution of the previously seen right medial temporo-occipital infarct as descri bed above. No interval intracranial bleeding or new mass effect.
[2021-12-24] MEDS: traMADol 50 MG TAB PO SCH ×3 (09:01→23:28)
[2021-12-24] MEDS: SENNOSIDES-DOCUSATE SODIUM 1 EACH TAB PO SCH ×2 (09:01→19:55)
[2021-12-24] MEDS: CLOPIDOGREL 75 MG TAB PO SCH (09:02)
[2021-12-24] MEDS: FLUoxetine HCL 20 MG CAP PO SCH (09:02)
[2021-12-24] MEDS: CYANOCOBALAMIN 500 MCG TAB PO SCH (09:02)
[2021-12-24] MEDS: FAMOTIDINE 20 MG TAB PO SCH (09:02)
[2021-12-24] MEDS: HEPARIN SODIUM,PORCINE/PF 5,000 UNIT/0.5 ML SYRINGE SQ SCH ×2 (09:02→19:56)
[2021-12-24] MEDS: metFORMIN 500 MG TAB PO SCH (09:02)
[2021-12-24] MEDS: busPIRone HCl 5 MG TAB PO SCH ×2 (09:02→19:55)
[2021-12-24] MEDS: ASPIRIN 81 MG PO SCH (09:02)
--- NOTE | 2021-12-24 11:12 | P.CRDCN ---
History of Present Illness History of present illness: HISTORY OF PRESENTING ILLNESS This is a pleasant 76 year-old male past medical history significant for hypertension, dyslipidemia, type 2 diabetes, dementia, aortic valve replacement in 2002 at [facility], dual chamber pacemaker implantation 2018 at [facility], back surgery at [facility]. Unknown who patient's still tender is. Patient does have a public guardian We have been asked to see in consultation for BETI. Patient presented to the ER altered mental status from [place]. Patient seen and examined at bedside, no acute distress. He is unable to describe what brought him to the hospital. He currently denies any chest pain or shortness of breath. On admission, CT brain revealed subacute CVA involving the right medial occipital region. DIAGNOSTICS EKG reveals sinus rhythm, heart rate 87, nonspecific T-wave abnormalities, mild depression in leads V3. Telemetry tracings indicate atrial paced, no evidence of arrhythmia noted. Echocardiogram, a difficult study, EF 5055 percent, unable to perform bubble Study, concentric LVH, small pericardial effusion. Chest xray no acute cardio pulmonary processes, to bradycardia conducted device overlying left hemothorax with tip is right ventricle and right atrium. Repeat pain CT revealed changes of the specimen which previously seen right medial temporal occipital infarct. No intracranial bleeding or new mass effect. Laboratory reviewed, hemoglobin 12.7, sodium 137, potassium 3.9, BUN 23, serum crit 0.9, magnesium 1.9, triglycerides 192, cholesterol 101, LDL 39 Current home medications include aspirin 81 mg daily, atorvastatin 10 mg nightly, Seroquel, trazodone, tramadol, metformin, senna REVIEW OF SYSTEMS At the time of my exam: CONSTITUTIONAL: Denies fever or chills. CARDIOVASCULAR: Denies chest pain, shortness of breath, orthopnea, PND or palpitations. RESPIRATORY: Denies cough. GASTROINTESTINAL: Denies abdominal pain, diarrhea, constipation, nausea or vomiting. MUSCULOSKELETAL: Denies myalgias. NEUROLOGIC: Denies numbness, tingling, headacbe or weakness. ENDOCRINE: Denies fatigue, weight change, polydipsia or polyurina. GENITOURINARY: Denies burning, hematuria or urgency with micturation. HEMATOLOGIC: Denies history of anemia or bleeding. PHYSICAL EXAMINATION Blood pressure 124/67, heart rate 77, afebrile, saturation 96% on room air CONSTITUTIONAL: No apparent distress. HEENT: Head is normocephalic. Pupils are equal, round. Sclerae anicteric. Mucous membranes of the mouth are moist. No JVD. No carotid bruit. CHEST EXAMINATION: Lungs are clear to auscultation. No chest wall tenderness is noted on palpation or with deep breathing. HEART EXAMINATION: Regular rate and rhythm. S1, S2 heard. No murmurs, gallops or rub. ABDOMEN: Soft, nontender. Positive bowel sounds. EXTREMITIES: 2+ peripheral pulses, no lower extremity edema and no calf tenderness. NEUROLOGIC EXAMINATION: Patient is awake, alert and oriented to person only. ASSESSMENT Altered mental status Subacute CVA Dementia History of Hypertension Dyslipidemia Type 2 diabetes Aortic valve replacement in 2001 at [facility] Dual chamber pacemaker implantation 2018 at [facility] History of back surgery [facility] PLAN At this time, we do not recommend BETI, from a cardiology perspective, no clinical benefit indicated at this time Attempt to obtain records from [facility] We will interrogate patient's device Continue aspirin, statin, Plavix Continue cardiac telemetry. Further recommendations based on clinical course Nurse practitioner note has been reviewed by physician. Signing provider agrees with the documented findings, assessment, and plan of care. Past Medical History Past Medical History: Dementia, Diabetes Mellitus, Hyperlipidemia, Hypertension, Myocardial Infarction (NE) Additional Past Medical History / Comment(s): back pain. Diabetes Type II diagnosed in 1956 - Diet controlled. NE 2001 no stents. HTN for years Last Myocardial Infarction Date:: 2001 History of Any Multi-Drug Resistant Organisms: None Reported Past Surgical History: Back Surgery, Cholecystectomy, Pacemaker Additional Past Surgical History / Comment(s): right hand surgery from work injury, Pacemaker in 2018 - Dr Barry out of [facility] Back Surgery L 4 & L5 Dr Alvarado [facility]. Aortic Valve Repalcement - 2001 [facility] Past Anesthesia/Blood Transfusion Reactions: No Reported Reaction Type of Cardiac Device: Permanent Pacemaker Device Placement Date:: 2017 Past Psychological History: Anxiety, Depression Smoking Status: Former smoker Past Alcohol Use History: None Reported Past Drug Use History: None Reported Additional Drug Use History / Comment(s): marijuana 2 gummies daily or bid (20- 40mg daily) - Past Family History Brother(s) Family Medical History: Cancer Additional Family Medical History / Comment(s): from pancreatic ca 2018 Father Family Medical History: Diabetes Mellitus Medications and Allergies Home Medications Medication Instructions Recorded Confirmed Type Atorvastatin [Lipitor] 10 mg PO HS 02/06/21 12/20/21 History FLUoxetine HCL [PROzac] 20 mg PO DAILY 02/06/21 12/20/21 History Tamsulosin HCl [Flomax] 0.4 mg PO HS 02/06/21 12/20/21 History busPIRone HCL 15 mg PO BID 02/06/21 12/20/21 History traZODone HCL [Desyrel] 50 mg PO HS 04/04/21 12/20/21 History Acetaminophen Tab [Tylenol] 650 mg PO Q6HR PRN tab 04/09/21 12/20/21 Rx Healthshake 1 dose PO DAILY@1200 07/15/21 12/20/21 History Melatonin 3 mg PO HS PRN 07/15/21 12/20/21 History traMADol HCL 100 mg PO Q24H PRN 07/15/21 12/20/21 History traMADol HCl [Ultram] 100 mg PO Q12H 07/15/21 12/20/21 History Aspirin 81 mg PO DAILY tab 07/17/21 12/20/21 Rx Famotidine [Pepcid] 20 mg PO DAILY #30 tablet 07/17/21 12/20/21 Rx QUEtiapine [SEROquel] 25 mg PO HS 12/20/21 12/20/21 History Sennosides-Docusate Sodium 2 tab PO BID 12/20/21 12/20/21 History [Senokot-S] metFORMIN HCL [Glucophage] 500 mg PO DAILY 12/20/21 12/20/21 History Allergies Allergy/AdvReac Type Severity Reaction Status Date / Time celecoxib [From Celebrex] Allergy Unknown Verified 12/20/21 17:09 erythromycin base Allergy Unknown Verified 12/20/21 17:09 iron Allergy Unknown Verified 12/20/21 17:09 nitroglycerin Allergy Unknown Verified 12/20/21 17:09 [From Nitro-Bid] penicillin G benethamine Allergy Unknown Verified 12/20/21 17:09 pentazocine [From Talwin] Allergy Unknown Verified 12/20/21 17:09 sulfamethoxazole Allergy Unknown Verified 12/20/21 17:09 [From Bactrim] trimethoprim [From Bactrim] Allergy Unknown Verified 12/20/21 17:09 Physical Exam Vitals: Vital Signs Temp Pulse Resp BP BP Pulse Ox 12/24/21 04:20 76 18 123/68 97 12/23/21 23:35 60 17 111/67 96 12/23/21 20:10 98.4 F 82 16 134/67 95 12/23/21 16:00 97.6 F 87 12 115/75 95 12/23/21 11:48 97.4 F L 96 12 99/63 96 12/23/21 08:00 97.8 F 77 12 119/61 97 Intake and Output 12/23/21 12/24/21 12/24/21 22:59 06:59 14:59 Intake Total 318 Output Total 300 Balance 18 Intake: Intake, IV Titration 200 Amount Sodium Chloride 0.9% 1, 200 000 ml @ 20 mls/hr IV . Q24H [facility] Rx#:[id number] Oral 118 Output: Urine 200 Post Void Residual 100 Other: Voiding Method Urinal Urinal Incontinent Incontinent # Voids 2 Results 12/20/21 17:12 12/20/21 17:10 Current Medications Generic Name Dose Route Start Last Admin Trade Name Freq PRN Reason Stop Dose Admin Acetaminophen 650 mg 12/22/21 13:30 12/24/21 00:04 Acetaminophen Tab 325 Mg Tab PO Not Given QID TONE Aspirin 81 mg 12/21/21 09:00 12/23/21 09:15 Aspirin 81 Mg PO 81 mg DAILY TONE Administration Atorvastatin Calcium 40 mg 12/21/21 21:00 12/23/21 20:09 Atorvastatin 40 Mg Tab PO 40 mg HS TONE Administration Buspirone HCl 15 mg 12/21/21 09:00 12/23/21 20:09 Buspirone Hcl 5 Mg Tab PO 15 mg BID TONE Administration Clopidogrel Bisulfate 75 mg 12/21/21 15:45 12/23/21 09:16 Clopidogrel 75 Mg Tab PO 75 mg DAILY TONE Administration Cyanocobalamin 1,000 mcg 12/22/21 19:15 12/23/21 09:15 Cyanocobalamin 500 Mcg Tab PO 1,000 mcg DAILY TONE Administration Famotidine 20 mg 12/21/21 09:00 12/23/21 09:14 Famotidine 20 Mg Tab PO 20 mg DAILY TONE Administration Fluoxetine HCl 20 mg 12/21/21 09:00 12/23/21 09:16 Fluoxetine Hcl 20 Mg Cap PO 20 mg DAILY TONE Administration Heparin Sodium (Porcine) 5,000 unit 12/21/21 21:00 12/23/21 20:09 Heparin Sodium,Porcine/Pf 5,000 Unit/0.5 Ml Syringe SQ 5,000 unit Q12HR TONE Administration Sodium Chloride 1,000 mls @ 20 mls/hr 12/20/21 19:30 12/22/21 21:45 Saline 0.9% IV 20 mls/hr .Q24H TONE Administration Melatonin 3 mg 12/21/21 08:24 12/22/21 21:44 Melatonin 3 Mg Tablet PO 3 mg HS PRN Administration Insomnia Metformin HCl 500 mg 12/21/21 09:00 12/23/21 09:16 Metformin 500 Mg Tab PO 500 mg DAILY TONE Administration Naloxone HCl 0.2 mg 12/20/21 19:17 Naloxone 0.4 Mg/Ml 1 Ml Vial IV Q2M PRN Opioid Reversal Quetiapine Fumarate 25 mg 12/21/21 21:00 12/23/21 20:09 Quetiapine 25 Mg Tab PO 25 mg HS TONE Administration Senna/Docusate Sodium 2 each 12/21/21 09:00 12/23/21 20:09 Sennosides-Docusate Sodium 1 Each Tab PO 2 each BID TONE Administration Tamsulosin HCl 0.4 mg 12/21/21 21:00 12/23/21 20:09 Tamsulosin 0.4 Mg Cap.Er.24h PO 0.4 mg HS TONE Administration Tramadol HCl 100 mg 12/21/21 09:00 12/23/21 20:09 Tramadol 50 Mg Tab PO 100 mg Q12HR TONE Administration Trazodone HCl 50 mg 12/21/21 21:00 12/23/21 20:09 Trazodone Hcl 50 Mg Tab PO 50 mg HS TONE Administration Intake and Output 12/23/21 12/24/21 12/24/21 22:59 06:59 14:59 Intake Total 318 Output Total 300 Balance 18 Intake: Intake, IV Titration 200 Amount Sodium Chloride 0.9% 1, 200 000 ml @ 20 mls/hr IV . Q24H [facility] Rx#:[id number] Oral 118 Output: Urine 200 Post Void Residual 100 Other: Voiding Method Urinal Urinal Incontinent Incontinent # Voids 2 12/20/21 17:12 12/20/21 17:10
[2021-12-24 11:39] LABS: Glucose,Whole Blood 111 mg/dL (75-99)
--- NOTE | 2021-12-24 14:03 | P.DS ---
Providers Date of admission: 12/20/21 19:17 Expected date of discharge: 12/24/21 Attending physician: Shlomo Thomas Consults: 12/20/21 19:18 Consult Physician Routine Consulting Provider: Erma Longoria Consult Reason/Comments: CVA Do you want consulting provider notified?: Yes 12/24/21 06:47 Consult Physician Routine Consulting Provider: Edy Thomas Consult Reason/Comments: Embolic stroke, echo poor quality, ? Need for BETI Do you want consulting provider notified?: Yes Primary care physician: [facility] Course: Chief Complaint: Altered mentation This is a pleasant 76-year-old patient's of chronic stable medical conditions include cognitive impairment, diabetes, hypertension, hyperlipidemia, acute PR in 2001 with no stents, pacemaker by Dr. Barry and at [facility]. Also had aortic valve replacement in 2001 at the same hospital. Patient is not a good historian. Per the EMS report EMS was called because of change in mental status. He was only oh 1. Patient had decreased urine output. Complaining of pain everywhere. Patient has known chronic pain history of. No fever or chills. No urinary symptoms. No cough or shortness breath. Per the EMS evaluation patient is pending to be a bit dehydrated. Computed tomography scan in the ER showed some loss of russell-white differentiation suspici on for infarct in the right medial occipitotemporal gyrus. neurology was consulted. Patient denies any trouble swallowing, change in vision or any new focal weakness. Admitted with acute sub-acute stroke. Aspirin. Plavix. Lipitor. 2-D echo and carotid Doppler were noncontributory. December 22: Complaining of generalized pain. Eating okay. Oriented to self. 2-D echo pending. December 23: Patient's pain is better because of scheduled Tylenol. Oral intake fair. 2-D echo results noted. December 24: Patient's home dose of Ultram adjusted. Pain much better controlled. Seen by cardiology. Didn't feel that BETI will be of any benefit. Discussed with patient. Will return to [facility]. Discussion and discharge planning more than 35 minutes Past medical history to include: Dementia, diabetes, hyperlipidemia, hypertension, diabetes diet controlled, PR in 2001 with no stents, back surgery, pacemaker in 2018, aortic valve replacement in 2001 with [facility], anxiety depression Social history: Lives with his son. Smoked for about 15 years stopped in 1986. 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 Family history: Pancreatic cancer Physical examination: VITAL SIGNS: 98, 68, 18, 126/72, 95% room air GENERAL: Reclining in bed, comfortable. EYES: Pupils equal. Conjunctiva normal. HEENT: External appearance of nose and ears normal, oral cavity grossly normal. NECK: JVD not raised; masses not palpable. HEART: First and second heart sounds are normal; no edema. LUNGS: Respiratory rate normal; clear to auscultation. ABDOMEN: Soft, nontender, liver spleen not palpable, no masses palpable. PSYCH: Patient thinks he is at some kind her children's home. Year 1965. He thinks it is winter MUSCULOSKELETAL:No Clubbing/cyanosis;muscles-grossly intact. Evidence of OA NEUROLOGICAL: Cranial nerves grossly intact; no facial asymmetry, power and sensation grossly intact. INVESTIGATIONS, reviewed in the clinical context: 2-D echocardiogram. Normal LV function. Concentric LVH. Bubble study not done Carotid Doppler: Less than 50% stenosis bilaterally. An bifurcation B12: Normal. Folate: Normal. White count 8.2 hemoglobin 12.7 platelets 253 potassium 3.9 creatinine 0.97 EKG tracing personally reviewed by me-normal sinus rhythm. ST-T wave changes. CT brain: Loss of russell-white differentiation suggesting infarct on the right medial occipitotemporal sinus.Nonspecific white matter changes Chest x-ray film personally reviewed by me-some right diaphragm elevation. Some hyperinflation Assessment and plan: -Patient sent in from the [facility] or change in mental status. No focal symptoms. Patient does not believe that he is in the hospital, he has 1965. Not sure about the weather. Possible sub-acute stroke Neurology consulted. Neuro checks. Aspirin. Plavix-for 30 days. Lipitor. . Carotid Doppler unremarkable -Diabetes mellitus type 2, on oral hypoglycemic Metformin. Follow Accu-Cheks -Hyperlipidemia Lipitor 10 mg daily at bedtime -BPH Flomax 0.4 mg daily at bedtime -Permanent pacemaker -Cognitive impairment. -Primary osteoarthritis multiple joints bilaterally Pain control -Anxiety depression otherwise specified Prozac 20 mg daily, Seroquel 25 mg daily at bedtime BuSpar 15 mg twice a day -Chronic insomnia from multiple medical problems Desyrel 50 mg daily at bedtime [facility] Summary New Discharge Prescriptions: New traZODone HCL [Desyrel] 50 mg PO HS tab Clopidogrel [Plavix] 75 mg PO DAILY tab Cyanocobalamin [Vitamin B-12] 1,000 mcg PO DAILY tab traMADol HCL [Ultram] 100 mg PO Q8H 9 Days #24 tab Continue busPIRone HCL 15 mg PO BID Tamsulosin HCl [Flomax] 0.4 mg PO HS Acetaminophen Tab [Tylenol] 650 mg PO Q6HR PRN tab PRN Reason: Fever And/ Or Pain Healthshake 1 dose PO DAILY@1200 Aspirin 81 mg PO DAILY tab Famotidine [Pepcid] 20 mg PO DAILY #30 tablet Sennosides-Docusate Sodium [Senokot-S] 2 tab PO BID QUEtiapine [SEROquel] 25 mg PO HS Atorvastatin [Lipitor] 10 mg PO HS FLUoxetine HCL [PROzac] 20 mg PO DAILY Melatonin 3 mg PO HS PRN PRN Reason: Insomnia metFORMIN HCL [Glucophage] 500 mg PO DAILY Changed traMADol HCl [Ultram] 100 mg PO TID #9 tab Discontinued traMADol HCL 100 mg PO Q24H PRN PRN Reason: Pain traZODone HCL [Desyrel] 50 mg PO HS Discharge Medication List Atorvastatin [Lipitor] 10 mg PO HS 02/06/21 [History] FLUoxetine HCL [PROzac] 20 mg PO DAILY 02/06/21 [History] Tamsulosin HCl [Flomax] 0.4 mg PO HS 02/06/21 [History] busPIRone HCL 15 mg PO BID 02/06/21 [History] Acetaminophen Tab [Tylenol] 650 mg PO Q6HR PRN tab 04/09/21 [Rx] Healthshake 1 dose PO DAILY@1200 07/15/21 [History] Melatonin 3 mg PO HS PRN 07/15/21 [History] Aspirin 81 mg PO DAILY tab 07/17/21 [Rx] Famotidine [Pepcid] 20 mg PO DAILY #30 tablet 07/17/21 [Rx] QUEtiapine [SEROquel] 25 mg PO HS 12/20/21 [History] Sennosides-Docusate Sodium [Senokot-S] 2 tab PO BID 12/20/21 [History] metFORMIN HCL [Glucophage] 500 mg PO DAILY 12/20/21 [History] Clopidogrel [Plavix] 75 mg PO DAILY tab 12/24/21 [Rx] Cyanocobalamin [Vitamin B-12] 1,000 mcg PO DAILY tab 12/24/21 [Rx] traMADol HCL [Ultram] 100 mg PO Q8H 9 Days #24 tab 12/24/21 [Rx] traMADol HCl [Ultram] 100 mg PO TID #9 tab 12/24/21 [Rx] traZODone HCL [Desyrel] 50 mg PO HS tab 12/24/21 [Rx] Follow up Appointment(s)/Referral(s): Abisai Wilcox DO [Primary Care Provider] - 1-2 days
--- NOTE | 2021-12-24 15:19 | P.PN ---
Subjective Progress Note Date: 12/24/21 I am seeing the patient for the first time for neurological management. Please refer to Dr. Longoria's note for further details. Currently the patient feels his headache is very mild and could not tell me loca tion. Denies of photophobia, phonophobia, nausea or vomiting. Denies of any new focal weakness. It seems the patient had a headache earlier and Dr. Longoria ordered repeat CT head to rule out any new stroke and consulted cardiology for BETI. Objective - Vital Signs Vital signs: Vital Signs Temp 98.0 F 12/24/21 11:40 Pulse 68 12/24/21 11:40 Resp 18 12/24/21 14:00 BP 126/72 12/24/21 11:40 Pulse Ox 95 12/24/21 11:40 FiO2 Intake & Output 12/23/21 12/24/21 12/24/21 18:59 06:59 18:59 Intake Total 548 118 Output Total 200 100 Balance 348 -100 118 Intake: Intake, IV Titration 200 Amount Sodium Chloride 0.9% 1, 200 000 ml @ 20 mls/hr IV . Q24H [facility] Rx#:[id number] Oral 348 118 Output: Urine 200 Post Void Residual 100 Other: Voiding Method Urinal Urinal Incontinent Incontinent # Voids 2 - Exam GENERAL: The patient is lying in bed and is not in acute distress. NEUROLOGICAL: Higher mental function: The patient is awake, alert, oriented to self. He stated the month is July but stated the year is 2019. Is oriented to place. Patient is following simple commands. No aphasia and no neglect. Cranial nerves: The pupils are round, equal and reactive to light. Visual simpson are full to confrontation throughout. Extraocular movement is intact no nystagmus is noted. Facial sensation is normal to touch throughout. The facial strength is normal throughout. Tongue is midline and moved [id number] without any difficulty. No dysarthria is noted. Shoulder shrug is normal bilaterally. Motor: The strength is 5 over 5 throughout. Normal tone and bulk. Sensation: Sensation is normal to touch throughout. - Labs CBC & Chem 7: 12/20/21 17:12 12/20/21 17:10 Labs: Abnormal Lab Results - Last 24 Hours (Table) 12/23/21 12/23/21 12/24/21 Range/Units 16:35 20:14 08:44 ESR 32 H (0-15) mm/hr POC Glucose (mg/dL) 133 H 146 H (75-99) mg/dL C-Reactive Protein (<1.0) mg/dL 12/24/21 12/24/21 Range/Units 08:44 11:38 ESR (0-15) mm/hr POC Glucose (mg/dL) 111 H (75-99) mg/dL C-Reactive Protein 2.1 H (<1.0) mg/dL Assessment and Plan Assessment: * Subacute ischemic CVA involving the right medial occipital region noted on computed tomography scan of the head * Dementia * Diabetes * Hyperlipidemia * Hypertension * Coronary artery disease * Pacemaker Plan: * CT head is reported as changed of expected evolution of the previously seen right medial temporo-occipital infarct. No interval intracranial bleeding or new mass effect. * CRP is 2.1 ESR: is 32 (normal is 0-15). Is mildly elevated but does not seem concern for vasculitis. It could be elevated due to refractive from multifactorial: one is stroke, possible UTI. * If continues to have headache recommend CTA head. * Cardiology does not feel BETI is of clinical benefit. * Patient has acute CVA noted on computed tomography scan of the head. Patient's NIH stroke scale is 0. Patient not a candidate for TPA, as last known well is unknown. * Carotid Doppler revealed less than 50% stenosis of bilateral ICA, antegrade flow in both vertebral arteries. * 2-D echo with bubble study was an extremely poor study. Left-ventricular ejection fraction is 50-55%. Normal right ventricular size and function, right Atrium not well visualized, normal left atrial size. Bubble study not performed due to TDS, mitral valve, aortic valve, tricuspid valve, pulmonary valve could not be well-visualized. Aortic root and proximal ascending aorta not well visualized. * Hemoglobin A1c 6.5 * Fasting lipid panel cholesterol 101, LDL 39.4, HDL 23, triglycerides 192. Continue Lipitor 40 mg daily. * B12 317, folate 10.40. TSH 1.52 is normal. We'll start oral B12 replacement. * Patient complaining of headache. We will check ESR, CRP. * Telemetry monitoring showing atrial paced rhythm at 69. * May need 30 day event monitor as outpatient to rule out PAF. * Patient was already on aspirin 81 mg daily prior to arrival to the hospital. We will add Plavix. After 21 days, stop aspirin and continue Plavix 75 mg daily. * DVT prophylaxis: We will start heparin 5000 units subcu every 12 hours. * Patient needs to follow-up with neurologist as outpatient within 1-2 weeks. No additional testing is needed and patient is clear for discharge. The plan is discussed with primary team. Chema Strickland M.D. Neuro-Hospitalist Time with Patient: Less than 30
[2021-12-24 16:26] LABS: Glucose,Whole Blood 95 mg/dL (75-99)
[2021-12-24] MEDS: ATORVASTATIN 40 MG TAB PO SCH (19:55)
[2021-12-24] MEDS: QUEtiapine 25 MG TAB PO SCH (19:56)
[2021-12-24] MEDS: traZODone HCL 50 MG TAB PO SCH (19:56)
[2021-12-24] MEDS: TAMSULOSIN 0.4 MG CAP.ER.24H PO SCH (19:56)
[2021-12-24 20:45] LABS: Glucose,Whole Blood 107 mg/dL (75-99)
--- NOTE | 2021-12-24 21:04 | P.PN ---
Progress Note - Text Progress Note Date: 12/24/21 Chief Complaint: Altered mentation This is a pleasant 76-year-old patient's of chronic stable medical conditions include cognitive impairment, diabetes, hypertension, hyperlipidemia, acute ME in 2001 with no stents, pacemaker by Dr. Barry and at [facility]. Also had aortic valve replacement in 2001 at the same hospital. Patient is not a good historian. Per the EMS report EMS was called because of change in mental status. He was only oh 1. Patient had decreased urine output. Complaining of pain everywhere. Patient has known chronic pain history of. No fever or chills. No urinary symptoms. No cough or shortness breath. Per the EMS evaluation patient is pending to be a bit dehydrated. Computed tomography scan in the ER showed some loss of russell-white differentiation suspicion for infarct in the right medial occipitotemporal gyrus. neurology was consulted. Patient denies any trouble swallowing, change in vision or any new focal weakness. Admitted with acute sub-acute stroke. Aspirin. Plavix. Lipitor. 2-D echo and carotid Doppler were noncontributory. December 22: Complaining of generalized pain. Eating okay. Oriented to self. 2-D echo pending. December 23: Patient's pain is better because of scheduled Tylenol. Oral intake fa ir. 2-D echo results noted. December 24: Patient's home dose of Ultram adjusted. Pain much better controlled. Seen by cardiology. Didn't feel that BETI will be of any benefit. Patient's device will be interrogated tomorrow. Past medical history to include: Dementia, diabetes, hyperlipidemia, hypertension, diabetes diet controlled, ME in 2001 with no stents, back surgery, pacemaker in 2017, aortic valve replacement in 2001 with [facility], anxiety depression Social history: Lives with his son. Smoked for about 15 years stopped in 1986. 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 Family history: Pancreatic cancer Physical examination: VITAL SIGNS: 98, 68, 18, 126/72, 95% room air GENERAL: Reclining in bed, comfortable. EYES: Pupils equal. Conjunctiva normal. HEENT: External appearance of nose and ears normal, oral cavity grossly normal. NECK: JVD not raised; masses not palpable. HEART: First and second heart sounds are normal; no edema. LUNGS: Respiratory rate normal; clear to auscultation. ABDOMEN: Soft, nontender, liver spleen not palpable, no masses palpable. PSYCH: Patient thinks he is at some kind her children's home. Year 1965. He thinks it is winter MUSCULOSKELETAL:No Clubbing/cyanosis;muscles-grossly intact. Evidence of OA NEUROLOGICAL: Cranial nerves grossly intact; no facial asymmetry, power and sensation grossly intact. INVESTIGATIONS, reviewed in the clinical context: 2-D echocardiogram. Normal LV function. Concentric LVH. Bubble study not done Carotid Doppler: Less than 50% stenosis bilaterally. An bifurcation B12: Normal. Folate: Normal. White count 8.2 hemoglobin 12.7 platelets 253 potassium 3.9 creatinine 0.97 EKG tracing personally reviewed by me-normal sinus rhythm. ST-T wave changes. CT brain: Loss of russell-white differentiation suggesting infarct on the right medial occipitotemporal sinus.Nonspecific white matter changes Chest x-ray film personally reviewed by me-some right diaphragm elevation. Some hyperinflation Assessment and plan: -Patient sent in from the F or change in mental status. No focal symptoms. Patient does not believe that he is in the hospital, he has 1965. Not sure about the weather. Possible sub-acute stroke Neurology consulted. Neuro checks. Aspirin. Plavix-for 30 days. Lipitor. . Carotid Doppler unremarkable -Diabetes mellitus type 2, on oral hypoglycemic Metformin. Follow Accu-Cheks -Hyperlipidemia Lipitor 10 mg daily at bedtime -BPH Flomax 0.4 mg daily at bedtime -Permanent pacemaker -Cognitive impairment. -Primary osteoarthritis multiple joints bilaterally Ultram 100 mg every 8 -Anxiety depression otherwise specified Prozac 20 mg daily, Seroquel 25 mg daily at bedtime BuSpar 15 mg twice a day -Chronic insomnia from multiple medical problems Desyrel 50 mg daily at bedtime -Full code Continue current medications. Device interrogation pending. Hopefully can be discharged tomorrow to [facility] if that is good.
[2021-12-24] MEDS: SODIUM CHLORIDE 0.9% 1,000 ML IV SCH ×2 (22:31→22:32)
[2021-12-25 06:07] LABS: Glucose,Whole Blood 95 mg/dL (75-99)
[2021-12-25] MEDS: busPIRone HCl 5 MG TAB PO SCH (09:18)
[2021-12-25] MEDS: CLOPIDOGREL 75 MG TAB PO SCH (09:18)
[2021-12-25] MEDS: FLUoxetine HCL 20 MG CAP PO SCH (09:18)
[2021-12-25] MEDS: metFORMIN 500 MG TAB PO SCH (09:18)
[2021-12-25] MEDS: SENNOSIDES-DOCUSATE SODIUM 1 EACH TAB PO SCH (09:18)
[2021-12-25] MEDS: FAMOTIDINE 20 MG TAB PO SCH (09:18)
[2021-12-25] MEDS: ASPIRIN 81 MG PO SCH (09:18)
[2021-12-25] MEDS: CYANOCOBALAMIN 500 MCG TAB PO SCH (09:18)
[2021-12-25] MEDS: traMADol 50 MG TAB PO SCH (09:19)
[2021-12-25] MEDS: ACETAMINOPHEN TAB 325 MG TAB PO SCH ×2 (09:19→12:06)
[2021-12-25] MEDS: HEPARIN SODIUM,PORCINE/PF 5,000 UNIT/0.5 ML SYRINGE SQ SCH (09:22)
--- NOTE | 2021-12-25 09:29 | CDI ---
Documentation Clarification Form Date: 12/25/2021 09:13:34 AM From: Snow Riddle CCS, CCDS Admit Date: 12/20/2021 07:17:00 PM Patient Name: Tommie Smith Visit Number: [id number] Discharge Date: ATTENTION: The Clinical Documentation Specialists (CDI) and [facility] Coding Staff appreciate your assistance in clarifying documentation. Please respond to the clarification below the line at the bottom and electronically sign. The CDI & [facility] Coding staff will review the response and follow-up if needed. Please note: Queries are made part of the Legal Health Record. If you have any questions, please contact the author of this message via ITS. Dr. Shlomo Thomas: Your patient has the documented symptom of Altered Mental Status in the 12/20 ED Note and in subsequent documentation: 12/21 H/P, Progress Notes 12/22 through 12/24, Cardiology consult on 12/24 and in the discharge Summary on 12/24 without further specificity. Additional clarification regarding the etiology/cause of this symptom is requested. History/Risk Factors per the 12/21 H/P: Cognitive Impairment, DM II on po meds, Hypertension, Hyperlipidemia, Acute SD 2001, Pacemaker & AVR at [facility], Chronic Pain, BPH, Primary Osteoarthritis multiple joints bilaterally, Chronic Insomnia, Anxiety, Depression, Former smoker. . Clinical Indicators: Presented to the ED on 12/20 via EMS with altered mental status, unclear exactly when the patient was last normal. Alert & oriented x1/4, resident of a assisted. Admit with Altered Mental Status. 12/20 VS: T 98.1, P 86, R 14, BP 117/64, PO 95 RA, BMI: 24.4 12/20 LAB: Hgb 12.7; BUN 23, Glucose 137, total protein 6.2, Triglycerides 192.00 12/20 UA: Cloudy, trace Protein, Trace ketones, Trace Blood, negative Nitrite, Small Esterase, RBC 13 12/20 CT Brain: New from prior loss of russell-white differentiation suggesting infarct of the right medial occipitotemporal gyrus. 12/21 US Carotid Arteries: <50% stenosis of the bilateral carotid bifurcations. 12/24 CT Brain: changes of expected evolution of the previously seen right medial temporoccipital infarct. Treatment 12/20: Telemetry, Neurological Assessment, Consulted Neurology, po Aspirin 324 mg x1, Home meds: Seroquel, Glucophage, Buspirone, Flomax, Senokot, Melatonin, Pepcid, Prozac, Lipitor, Aspirin low dose, Tylenol, Desyrel, Ultram, Vit B12 & Plavix. Please clarify the etiology of the symptom of Altered Mental Status: [ ] Encephalopathy due to: , please specify type. [ ] Delirium (specify cause): [ ] Dementia (if known, specify Type and if with/without Behavioral Disturbance) [ ] Other condition (please specify) [ ] Unable to determine (Template Last Revised: August 2020) Acute encephalopathy due to subacute stroke MTDD
[2021-12-25 09:41] VITALS: RESP 18
[2021-12-25 11:38] LABS: Glucose,Whole Blood 106 mg/dL (75-99)
--- NOTE | 2021-12-25 11:50 | CA ---
Transthoracic Echo Report Name: Tommie Smith Age: 76 Gender: M : 1945 Exam Date: 12/25/2021 09:41 Exam Location: [place] [facility] Ht (in): 64 Wt (lb): 142 Ordering Physician: Karin Valentino Attending/Referring Phys: Lathe Winder Maribel Mckeon RDCS Procedure CPT: Indications: Repeat, evaluate valves, history AVR Cardiac Hx: Hx of Aortic valve replacement. Technical Quality: Technically difficult study Contrast 1: Lumason Total Dose (mL): 1 Contrast 2: Total Dose (mL): MEASUREMENTS (Male / Female) Normal Values 2D ECHO LV Diastolic Diameter PLAX 3.5 cm 4.2 - 5.9 / 3.9 - 5.3 cm LV Systolic Diameter PLAX 1.5 cm IVS Diastolic Thickness 1.1 cm 0.6 - 1.0 / 0.6 - 0.9 cm LVPW Diastolic Thickness 1.2 cm 0.6 - 1.0 / 0.6 - 0.9 cm LV Relative Wall Thickness 0.7 RV Internal Dim ED PLAX 2.6 cm M-MODE Aortic Root Diameter MM 2.8 cm LA Systolic Diameter MM 2.8 cm LA Ao Ratio MM 1.0 MV E Point Septal Separation 2.0 cm AV Cusp Separation MM 1.6 cm DOPPLER AV Peak Velocity 134.9 cm/s AV Peak Gradient 7.3 mmHg AV Mean Velocity 101.6 cm/s AV Mean Gradient 4.5 mmHg AV Velocity Time Integral 33.3 cm AI Peak Velocity 100.2 cm/s AI Peak Gradient 4.0 mmHg AI Pressure Half Time 544.1 ms LVOT Peak Velocity 50.6 cm/s LVOT Peak Gradient 1.0 mmHg MV Area PHT 2.6 cm??? MR Peak Velocity 72.3 cm/s MR Peak Gradient 2.1 mmHg Mitral E Point Velocity 78.0 cm/s Mitral A Point Velocity 85.3 cm/s Mitral E to A Ratio 0.9 MV Deceleration Time 297.0 ms TR Peak Velocity 163.2 cm/s TR Peak Gradient 10.7 mmHg Right Ventricular Systolic Press 14.6 mmHg FINDINGS Left Ventricle Normal Left ventricular size, wall thickness, systolic function with no obvious regional wall motion abnormalities. Normal Left ventricular diastolic filling pattern. Left ventricular ejection fraction is estimated at 50-55 %. Right Ventricle The right ventricle is normal in size and function. Right Atrium The right atrium is normal in size. Left Atrium The left atrium is normal in size. Mitral Valve Structurally normal mitral valve without significant stenosis or prolapse. There is trace mitral regurgitation. Aortic Valve Normally functioning prosthetic aortic valvewith a max gradient of 7 mmHg and a mean gradient of 4 mmHg . There is trace aortic regurgitation. Valve is not well visualized. Tricuspid Valve Structurally normal tricuspid valve without significant stenosis. Pulmonary artery systolic pressure is normal. Trace tricuspid regurgitation. Pulmonic Valve Structurally normal pulmonic valve without significant stenosis. There is no pulmonic regurgitation. Pericardium Normal pericardium without effusion. Aorta Normal aortic root dimension. CONCLUSIONS #1. Normal left ventricular wall thickness size and function. #2. Normally functioning aortic prosthetic valve. The peak gradient of 7 Previewed by: Dr. Edy Thomas MD (Electronically Signed) Final Date: 25 December 2021 11:48
[2021-12-25 12:08] VITALS: BP 137/80; PULSE 64; TEMP 97.8
--- NOTE | 2021-12-25 12:26 | P.PN ---
Subjective This is a pleasant 76 year-old male past medical history significant for hypertension, dyslipidemia, type 2 diabetes, dementia, aortic valve replacement in 2001 at [facility], dual chamber pacemaker implantation 2018 at [facility], back surgery at [facility]. Unknown who patient's mat machine tender is. Patient does have a public guardian We have been asked to see in consultation for BETI. Patient presented to the ER altered mental status [facility]. On admission, CT brain revealed subacute CVA involving the right medial occipital region. DIAGNOSTICS EKG reveals sinus rhythm, heart rate 87, nonspecific T-wave abnormalities, mild depression in leads V3. Telemetry tracings indicate atrial paced, no evidence of arrhythmia noted. Echocardiogram, a difficult study, EF 5055%, unable to perform bubble Study, concentric LVH, small pericardial effusion. 12/25/2021 Patient seen and examined at bedside, no acute distress. Denies any chest pain or shortness of breath. He is alert and oriented to person. Vital signs are stable. Device was interrogated which revealed an episode of atrial tachycardia in 08/2020, 1:1 conduction, no evidence of atrial fibrillation or arrhythmia noted. PHYSICAL EXAMINATION Vitals reviewed CONSTITUTIONAL: No apparent distress. HEENT: Head is normocephalic. Pupils are equal, round. Sclerae anicteric. Mucous membranes of the mouth are moist. No JVD. No carotid bruit. CHEST EXAMINATION: Lungs are clear to auscultation. No chest wall tenderness is noted on palpation or with deep breathing. HEART EXAMINATION: Regular rate and rhythm. S1, S2 heard. No murmurs, gallops or rub. ABDOMEN: Soft, nontender. Positive bowel sounds. EXTREMITIES: 2+ peripheral pulses, no lower extremity edema and no calf tenderness. NEUROLOGIC EXAMINATION: Patient is awake, alert and oriented to person only. ASSESSMENT Altered mental status, likely related to subacute CVA and dementia Subacute CVA Dementia History of Hypertension Dyslipidemia Type 2 diabetes Aortic valve replacement in 2001 at [facility] Dual chamber pacemaker implantation 2018 at [facility] History of back surgery [facility] PLAN At this time, we do not recommend BETI, from a cardiology perspective, no clinical benefit indicated at this time Repeat echocardiogram revealed an EF of 5055%, no significant wall motion abnormalities, normal functioning prosthetic aortic valve with a max creatinine of 7 mmHg and mean gradient of 4 mmHg. Device interrogation reveals no evidence of atrial fibrillation or arrhythmia. Continue aspirin, statin, Plavix Continue cardiac telemetry. From cardiology perspective no further inpatient workup indicated at this time. We'll follow the patient as needed. Please reconsult if needed. Nurse practitioner note has been reviewed by physician. Signing provider agrees with the documented findings, assessment, and plan of care. Objective - Vital Signs Vital signs: Vital Signs Temp 98.0 F 12/25/21 08:14 Pulse 77 12/25/21 08:14 Resp 18 12/25/21 08:14 BP 124/76 12/25/21 08:14 Pulse Ox 97 12/25/21 08:14 FiO2 Intake & Output 12/24/21 12/25/21 12/25/21 18:59 06:59 18:59 Intake Total 118 Balance 118 Intake: Oral 118 Other: Voiding Method Urinal Urinal Urinal Incontinent Incontinent Incontinent # Voids 1 # Bowel Movements 1 - Labs CBC & Chem 7: 12/20/21 17:12 12/20/21 17:10 Labs: Abnormal Lab Results - Last 24 Hours (Table) 12/24/21 12/24/21 12/24/21 Range/Units 08:44 11:38 20:44 ESR 32 H (0-15) mm/hr POC Glucose (mg/dL) 111 H 107 H (75-99) mg/dL
--- NOTE | 2021-12-25 13:43 | P.DS ---
Providers Date of admission: 12/20/21 19:17 Expected date of discharge: 12/25/21 Attending physician: Shlomo Thomas Consults: 12/20/21 19:18 Consult Physician Routine Consulting Provider: Erma Longoria Consult Reason/Comments: CVA Do you want consulting provider notified?: Yes 12/24/21 06:47 Consult Physician Routine Consulting Provider: Edy Thomas Consult Reason/Comments: Embolic stroke, echo poor quality, ? Need for BETI Do you want consulting provider notified?: Yes Primary care physician: [facility] Course: Chief Complaint: Altered mentation This is a pleasant 76-year-old patient's of chronic stable medical conditions include cognitive impairment, diabetes, hypertension, hyperlipidemia, acute NE in 2001 with no stents, pacemaker by Dr. Barry and at [facility]. Also had aortic valve replacement in 2001 at the same hospital. Patient is not a good historian. Per the EMS report EMS was called because of change in mental status. He was only oh 1. Patient had decreased urine output. Complaining of pain everywhere. Patient has known chronic pain history of. No fever or chills. No urinary symptoms. No cough or shortness breath. Per the EMS evaluation patient is pending to be a bit dehydrated. Computed tomography scan in the ER showed some loss of russell-white differentiation suspici on for infarct in the right medial occipitotemporal gyrus. neurology was consulted. Patient denies any trouble swallowing, change in vision or any new focal weakness. Admitted with acute sub-acute stroke. Aspirin. Plavix. Lipitor. 2-D echo and carotid Doppler were noncontributory. December 22: Complaining of generalized pain. Eating okay. Oriented to self. 2-D echo pending. December 23: Patient's pain is better because of scheduled Tylenol. Oral intake fair. 2-D echo results noted. December 24: Patient's home dose of Ultram adjusted. Pain much better controlled. Seen by cardiology. Didn't feel that BETI will be of any benefit. Patient's device will be interrogated tomorrow. December 25: Device was interrogated. Unremarkable per cardiology. 2-D echocardiogram was repeated. EF 50-55%. No further intervention. Patient be [facility] to [facility]. Comfortable. Discussion and discharge planning more than 35 minutes Past medical history to include: Dementia, diabetes, hyperlipidemia, hypertension, diabetes diet controlled, NE in 2002 with no stents, back surgery, pacemaker in 2018, aortic valve replacement in 2001 with [facility], anxiety depression Social history: Lives with his son. Smoked for about 15 years stopped in 1986. 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 Family history: Pancreatic cancer Physical examination: VITAL SIGNS: 97.8, 64, 18, 1 37 x 80, 95% room air GENERAL: Reclining in bed, comfortable. EYES: Pupils equal. Conjunctiva normal. HEENT: External appearance of nose and ears normal, oral cavity grossly normal. NECK: JVD not raised; masses not palpable. HEART: First and second heart sounds are normal; no edema. LUNGS: Respiratory rate normal; clear to auscultation. ABDOMEN: Soft, nontender, liver spleen not palpable, no masses palpable. PSYCH: Patient thinks he is at some kind her children's home. Year 1965. He thinks it is winter MUSCULOSKELETAL:No Clubbing/cyanosis;muscles-grossly intact. Evidence of OA NEUROLOGICAL: Cranial nerves grossly intact; no facial asymmetry, power and sensation grossly intact. INVESTIGATIONS, reviewed in the clinical context: Device interrogation: No arrhythmia 2-D echocardiogram. Normal LV function. Concentric LVH. Bubble study not done Carotid Doppler: Less than 50% stenosis bilaterally. An bifurcation B12: Normal. Folate: Normal. White count 8.2 hemoglobin 12.7 platelets 253 potassium 3.9 creatinine 0.97 EKG tracing personally reviewed by me-normal sinus rhythm. ST-T wave changes. CT brain: Loss of russell-white differentiation suggesting infarct on the right medial occipitotemporal sinus.Nonspecific white matter changes Chest x-ray film personally reviewed by me-some right diaphragm elevation. Some hyperinflation Assessment and plan: -Patient sent in from the [facility] or change in mental status. No focal symptoms. Patient does not believe that he is in the hospital, he has 1966. Not sure about the weather. Possible sub-acute stroke Neurology consulted. Neuro checks. Aspirin. Plavix-for 30 days. Lipitor. . Carotid Doppler unremarkable -Diabetes mellitus type 2, on oral hypoglycemic Metformin. Follow Accu-Cheks -Hyperlipidemia Lipitor 10 mg daily at bedtime -BPH Flomax 0.4 mg daily at bedtime -Permanent pacemaker. Device interrogated. No arrhythmia -Cognitive impairment. -Primary osteoarthritis multiple joints bilaterally Ultram 100 mg every 8 -Anxiety depression otherwise specified Prozac 20 mg daily, Seroquel 25 mg daily at bedtime BuSpar 15 mg twice a day -Chronic insomnia from multiple medical problems Desyrel 50 mg daily at bedtime -Full code Disposition: Rehab at [facility] on Plan - Discharge Summary New Discharge Prescriptions: New traZODone HCL [Desyrel] 50 mg PO HS tab Clopidogrel [Plavix] 75 mg PO DAILY tab Cyanocobalamin [Vitamin B-12] 1,000 mcg PO DAILY tab traMADol HCL [Ultram] 100 mg PO Q8H 9 Days #24 tab Continue busPIRone HCL 15 mg PO BID Tamsulosin HCl [Flomax] 0.4 mg PO HS Acetaminophen Tab [Tylenol] 650 mg PO Q6HR PRN tab PRN Reason: Fever And/ Or Pain Healthshake 1 dose PO DAILY@1200 Aspirin 81 mg PO DAILY tab Famotidine [Pepcid] 20 mg PO DAILY #30 tablet Sennosides-Docusate Sodium [Senokot-S] 2 tab PO BID QUEtiapine [SEROquel] 25 mg PO HS Atorvastatin [Lipitor] 10 mg PO HS FLUoxetine HCL [PROzac] 20 mg PO DAILY Melatonin 3 mg PO HS PRN PRN Reason: Insomnia metFORMIN HCL [Glucophage] 500 mg PO DAILY Changed traMADol HCl [Ultram] 100 mg PO TID #9 tab Discontinued traMADol HCL 100 mg PO Q24H PRN PRN Reason: Pain traZODone HCL [Desyrel] 50 mg PO HS Discharge Medication List Atorvastatin [Lipitor] 10 mg PO HS 02/06/21 [History] FLUoxetine HCL [PROzac] 20 mg PO DAILY 02/06/21 [History] Tamsulosin HCl [Flomax] 0.4 mg PO HS 02/06/21 [History] busPIRone HCL 15 mg PO BID 02/06/21 [History] Acetaminophen Tab [Tylenol] 650 mg PO Q6HR PRN tab 04/09/21 [Rx] Healthshake 1 dose PO DAILY@1200 07/15/21 [History] Melatonin 3 mg PO HS PRN 07/15/21 [History] Aspirin 81 mg PO DAILY tab 07/17/21 [Rx] Famotidine [Pepcid] 20 mg PO DAILY #30 tablet 07/17/21 [Rx] QUEtiapine [SEROquel] 25 mg PO HS 12/20/21 [History] Sennosides-Docusate Sodium [Senokot-S] 2 tab PO BID 12/20/21 [History] metFORMIN HCL [Glucophage] 500 mg PO DAILY 12/20/21 [History] Clopidogrel [Plavix] 75 mg PO DAILY tab 12/24/21 [Rx] Cyanocobalamin [Vitamin B-12] 1,000 mcg PO DAILY tab 12/24/21 [Rx] traMADol HCL [Ultram] 100 mg PO Q8H 9 Days #24 tab 12/24/21 [Rx] traMADol HCl [Ultram] 100 mg PO TID #9 tab 12/24/21 [Rx] traZODone HCL [Desyrel] 50 mg PO HS tab 12/24/21 [Rx] Follow up Appointment(s)/Referral(s): Morgan Stone MD [STAFF PHYSICIAN] - 2 Weeks Abisai Wilcox DO [Primary Care Provider] - 1-2 days
--- NOTE | 2021-12-25 14:58 | P.PCN ---
Preoperative Diagnosis: [email or web address] pacemaker was interrogated Atrial pacing percentage 48% P waves 3.4 mV Pacing threshold 0.6 V at 0.4 ms Pacing impedance 465 ohms Minimal ventricular pacing less than 0.1% R waves 7.5 mV RV pacing threshold 1.4 V at 0.4 ms Pacing impedance 604 ohms Battery life greater than 8 years Episode of nonsustained atrial tachycardia with one-to-one ventricle conduction in 2019 No recent episodes of atrial fibrillation
== END 2021-12-25 15:15 | DRG 65 ==
LOC: EC 16:19 → EEVIPCON 16:19 → 3SCARD 19:17
PROVIDERS: ADMIT Hospitalist; ATTEND Hospitalist
PROC: 4B02XSZ Measurement of Cardiac Pacemaker, External Approach (ICD-10-PCS; principal; 2021-12-25)
DX: I63.19 Cerebral infarction due to embolism of other precerebral artery (principal); G93.40 Encephalopathy, unspecified; I47.1 Supraventricular tachycardia; E11.9 Type 2 diabetes mellitus without complications; F03.90 Unspecified dementia, unspecified severity, without behavioral disturbance, psychotic disturbance, mood disturbance, and anxiety; E86.0 Dehydration; I25.10 Atherosclerotic heart disease of native coronary artery without angina pectoris; I10 Essential (primary) hypertension; E78.5 Hyperlipidemia, unspecified; J98.6 Disorders of diaphragm; N40.0 Benign prostatic hyperplasia without lower urinary tract symptoms; M54.9 Dorsalgia, unspecified; G89.29 Other chronic pain; I08.3 Combined rheumatic disorders of mitral, aortic and tricuspid valves; R41.89 Other symptoms and signs involving cognitive functions and awareness; M15.9 Polyosteoarthritis, unspecified; F51.04 Psychophysiologic insomnia; F32.A Depression, unspecified; F41.9 Anxiety disorder, unspecified; I25.2 Old myocardial infarction; Z90.49 Acquired absence of other specified parts of digestive tract; Z95.0 Presence of cardiac pacemaker; Z95.2 Presence of prosthetic heart valve; Z88.1 Allergy status to other antibiotic agents; Z88.0 Allergy status to penicillin; Z88.2 Allergy status to sulfonamides; Z88.8 Allergy status to other drugs, medicaments and biological substances; Z79.899 Other long term (current) drug therapy; Z79.84 Long term (current) use of oral hypoglycemic drugs; Z79.82 Long term (current) use of aspirin; Z87.891 Personal history of nicotine dependence; Z83.3 Family history of diabetes mellitus; Z79.02 Long term (current) use of antithrombotics/antiplatelets; Z80.0 Family history of malignant neoplasm of digestive organs; Z85.07 Personal history of malignant neoplasm of pancreas
CPT/HCPCS: 36415; 70450; 71045; 80053; 80061; 81001; 82607; 82746; 83036; 83605; 83735; 85025; 85610; 85652; 85730; 86140; 93005; 93306; 93880; 99285

== ENCOUNTER 2022-05-07 01:37 | Emergency (ER) | payer MEDICARE ==
[2022-05-07] MEDS ORDERED: ACETAMINOPHEN TAB 325 MG TAB PO STA (02:35)
[2022-05-07 02:53] LABS: Basophils # (A) 0.1 k/uL (0-0.2); Basophils % (A) 1 %; Eosinophils # (A) 0.1 k/uL (0-0.7); Eosinophils % (A) 2 %; HCT 38.5 % (39.0-53.0); HGB 12.7 gm/dL (13.0-17.5); Lymphocytes # (A) 0.7 k/uL (1.0-4.8); Lymphocytes % (A) 17 %; MCH 29.4 pg (25.0-35.0); MCHC 32.9 g/dL (31.0-37.0); MCV 89.5 fL (80.0-100.0); Mean Platelet Volume 8.1; Monocytes # (A) 0.3 k/uL (0-1.0); Monocytes % (A) 7 %; Neutrophils # (A) 3.1 k/uL (1.3-7.7); Neutrophils % (A) 71 %; Platelet Count 206 k/uL (150-450); RDW 13.8 % (11.5-15.5); WBC 4.4 k/uL (3.8-10.6)
[2022-05-07 02:59] LABS: Albumin 3.8 g/dL (3.5-5.0); Calcium 8.6 mg/dL (8.4-10.2); Total Bilirubin 0.5 mg/dL (0.2-1.3); Total Protein 6.4 g/dL (6.3-8.2)
--- NOTE | 2022-05-07 03:06 | XR ---
EXAMINATION TYPE: XR chest 1V DATE OF EXAM: 05/07/2022 COMPARISON: 12/21/2021 HISTORY: Fever TECHNIQUE: Single view FINDINGS: There is no heart failure nor confluent pneumonic infiltrate. There are sternal wires. Ther e is left axillary pacemaker. There are chest leads. IMPRESSION: No active cardiopulmonary disease. There is essentially complete clearing of the atelecta sis at the left lung base compared to old exams.
[2022-05-07 03:11] LABS: Potassium 4.6 mmol/L (3.5-5.1)
[2022-05-07] MEDS ORDERED: SODIUM CHLORIDE 0.9% 500 ML 500 ML IV STA (05:20)
[2022-05-07 05:23] VITALS: TEMP 98.6
--- NOTE | 2022-05-07 05:27 | ED ---
General Adult HPI - General Chief complaint: Fever Stated complaint: COVID,AMS Time Seen by Provider: 05/07/22 01:48 Source: EMS Mode of arrival: EMS Limitations: altered mental status, physical limitation - History of Present Illness Initial comments: This patient is a 77-year-old man who is sent here from [facility] to have evaluation for fever, confusion, concerns about hypotension. Patient was recently diagnosed with covid infection. alf notes state that the patient was disoriented. On arrival here, the patient is denying pains, denying dyspnea, denying nausea and vomiting. Onset/Timin -: days(s) Severity scale (1-10): 0 Consistency: constant Improves with: none Worsens with: none Associated Symptoms: confusion, fever/chills - Related Data Home Medications Medication Instructions Recorded Confirmed Atorvastatin [Lipitor] 10 mg PO HS 02/06/21 12/20/21 FLUoxetine HCL [PROzac] 20 mg PO DAILY 02/06/21 12/20/21 Tamsulosin HCl [Flomax] 0.4 mg PO HS 02/06/21 12/20/21 busPIRone HCL 15 mg PO BID 02/06/21 12/20/21 Healthshake 1 dose PO DAILY@1200 07/15/21 12/20/21 Melatonin 3 mg PO HS PRN 07/15/21 12/20/21 QUEtiapine [SEROquel] 25 mg PO HS 12/20/21 12/20/21 Sennosides-Docusate Sodium 2 tab PO BID 12/20/21 12/20/21 [Senokot-S] metFORMIN HCL [Glucophage] 500 mg PO DAILY 12/20/21 12/20/21 Previous Rx's Medication Instructions Recorded Acetaminophen Tab [Tylenol] 650 mg PO Q6HR PRN tab 04/09/21 Aspirin 81 mg PO DAILY tab 07/17/21 Famotidine [Pepcid] 20 mg PO DAILY #30 tablet 07/17/21 Clopidogrel [Plavix] 75 mg PO DAILY tab 12/24/21 Cyanocobalamin [Vitamin B-12] 1,000 mcg PO DAILY tab 12/24/21 traMADol HCL [Ultram] 100 mg PO Q8H 9 Days #24 tab 12/24/21 traMADol HCl [Ultram] 100 mg PO TID #9 tab 12/24/21 traZODone HCL [Desyrel] 50 mg PO HS tab 12/24/21 Allergies Allergy/AdvReac Type Severity Reaction Status Date / Time celecoxib [From Celebrex] Allergy Unknown Verified 12/20/21 17:09 erythromycin base Allergy Unknown Verified 12/20/21 17:09 iron Allergy Unknown Verified 12/20/21 17:09 nitroglycerin Allergy Unknown Verified 12/20/21 17:09 [From Nitro-Bid] penicillin G benethamine Allergy Unknown Verified 12/20/21 17:09 pentazocine [From Talwin] Allergy Unknown Verified 12/20/21 17:09 sulfamethoxazole Allergy Unknown Verified 12/20/21 17:09 [From Bactrim] trimethoprim [From Bactrim] Allergy Unknown Verified 12/20/21 17:09 Review of Systems ROS Statement: Those systems with pertinent positive or pertinent negative responses have been documented in the HPI. ROS Other: All systems not noted in ROS Statement are negative. Constitutional: Reports: fever, weakness Respiratory: Reports: cough. Denies: dyspnea, hemoptysis Cardiovascular: Denies: chest pain, palpitations Gastrointestinal: Denies: abdominal pain, vomiting, diarrhea Genitourinary: Denies: dysuria, hematuria Musculoskeletal: Denies: back pain Skin: Denies: rash Neurological: Denies: headache, weakness Past Medical History Past Medical History: Dementia, Diabetes Mellitus, Hyperlipidemia, Hypertension, Myocardial Infarction ([place]) Additional Past Medical History / Comment(s): back pain. Diabetes Type II diagnosed in 1956 - Diet controlled. [place] 2001 no stents. HTN for years Last Myocardial Infarction Date:: 2001 History of Any Multi-Drug Resistant Organisms: None Reported Past Surgical History: Back Surgery, Cholecystectomy, Pacemaker Additional Past Surgical History / Comment(s): right hand surgery from work injury, Pacemaker in 2018 - Dr Barry out of [facility] Back Surgery L 4 [address] L5 Dr Alvarado [facility]. Aortic Valve Repalcement - 2001 [facility] Past Anesthesia/Blood Transfusion Reactions: No Reported Reaction Type of Cardiac Device: Permanent Pacemaker Device Placement Date:: 2017 Past Psychological History: Anxiety, Depression Smoking Status: Former smoker Past Alcohol Use History: None Reported Past Drug Use History: None Reported Additional Drug Use History / Comment(s): marijuana 2 gummies daily or bid (20- 40mg daily) - Past Family History Brother(s) Family Medical History: Cancer Additional Family Medical History / Comment(s): from pancreatic ca 2018 Father Family Medical History: Diabetes Mellitus General Exam Limitations: altered mental status, physical limitation General appearance: alert, in no apparent distress Head exam: Present: atraumatic, normocephalic Eye exam: Present: normal appearance. Absent: scleral icterus, conjunctival injection ENT exam: Present: mucous membranes dry Neck exam: Present: normal inspection. Absent: tenderness, meningismus, full ROM Respiratory exam: Present: normal lung sounds bilaterally. Absent: respiratory distress, wheezes, rales, rhonchi, stridor, accessory muscle use Cardiovascular Exam: Present: regular rate, normal rhythm, normal heart sounds. Absent: systolic murmur, diastolic murmur, rubs, gallop GI/Abdominal exam: Present: soft. Absent: distended, tenderness, guarding, rebound, rigid, mass Extremities exam: Present: normal inspection, normal capillary refill. Absent: pedal edema, calf tenderness Neurological exam: Present: alert, CN II-XII intact. Absent: oriented X3 (Patient is disoriented to date and place), motor sensory deficit Skin exam: Present: warm, dry, intact, normal color. Absent: rash Course Vital Signs 05/07/22 05/07/22 01:39 03:22 Temperature 100.5 F H 98.4 F Pulse Rate 85 Respiratory 20 Rate Blood Pressure 103/62 O2 Sat by Pulse 93 L Oximetry Medical Decision Making - Medical Decision Making Patient is 77-year-old man from senior care for fever and hypotension. The workup does reveal that there is a mild elevation of BUN to creatinine ratio. Patient is given fluid bolus. He otherwise is in no distress. There is no dyspnea. No evidence of pneumonia at the moment. Patient is in long-term care facility with nursing attention and therefore will send back with prescription for antiviral medications. - Lab Data Result diagrams: 05/07/22 01:35 05/07/22 01:35 Lab Results 05/07/22 05/07/22 Range/Units 01:35 01:35 WBC 4.4 (3.8-10.6) k/uL RBC 4.30 (4.30-5.90) m/uL Hgb 12.7 L (13.0-17.5) gm/dL Hct 38.5 L (39.0-53.0) % MCV 89.5 (80.0-100.0) fL MCH 29.4 (25.0-35.0) pg MCHC 32.9 (31.0-37.0) g/dL RDW 13.8 (11.5-15.5) % Plt Count 206 (150-450) k/uL MPV 8.1 Neutrophils % 71 % Lymphocytes % 17 % Monocytes % 7 % Eosinophils % 2 % Basophils % 1 % Neutrophils # 3.1 (1.3-7.7) k/uL Lymphocytes # 0.7 L (1.0-4.8) k/uL Monocytes # 0.3 (0-1.0) k/uL Eosinophils # 0.1 (0-0.7) k/uL Basophils # 0.1 (0-0.2) k/uL Sodium 133 L (137-145) mmol/L Potassium 4.6 (3.5-5.1) mmol/L Chloride 96 L (98-107) mmol/L Carbon Dioxide 23 (22-30) mmol/L Anion Gap 14 mmol/L BUN 21 H (9-20) mg/dL Creatinine 1.15 (0.66-1.25) mg/dL Est GFR (CKD-EPI)AfAm 71 (>60 ml/min/1.73 sqM) Est GFR (CKD-EPI)NonAf 61 (>60 ml/min/1.73 sqM) Glucose 85 (74-99) mg/dL Calcium 8.6 (8.4-10.2) mg/dL Total Bilirubin 0.5 (0.2-1.3) mg/dL AST 24 (17-59) U/L ALT 11 (4-49) U/L Alkaline Phosphatase 72 (38-126) U/L Total Protein 6.4 (6.3-8.2) g/dL Albumin 3.8 (3.5-5.0) g/dL Disposition Clinical Impression: COVID-19 Disposition: HOME SELF-CARE Condition: Fair Instructions (If sedation given, give patient instructions): COVID-19 (Coronavirus Disease 2019) (ED) Is patient prescribed a controlled substance at d/c from ED?: No Referrals: Abisai Wilcox DO [Primary Care Provider] - 1-2 days
[2022-05-07 05:33] VITALS: BP 108/57; PULSE 84; RESP 16
== END 2022-05-07 05:55 | disposition home or self-care (01) ==
LOC: EC 01:37
DX: U07.1 COVID-19 (principal); E11.9 Type 2 diabetes mellitus without complications; E78.5 Hyperlipidemia, unspecified; I10 Essential (primary) hypertension; F32.A Depression, unspecified; L23.0 Allergic contact dermatitis due to metals; F41.9 Anxiety disorder, unspecified; I25.2 Old myocardial infarction; Z87.891 Personal history of nicotine dependence; F12.90 Cannabis use, unspecified, uncomplicated; Z79.02 Long term (current) use of antithrombotics/antiplatelets; Z79.899 Other long term (current) drug therapy; Z79.83 Long term (current) use of bisphosphonates; Z79.84 Long term (current) use of oral hypoglycemic drugs; Z88.6 Allergy status to analgesic agent; Z88.1 Allergy status to other antibiotic agents; Z88.8 Allergy status to other drugs, medicaments and biological substances; Z88.0 Allergy status to penicillin; Z88.5 Allergy status to narcotic agent; Z88.2 Allergy status to sulfonamides
CPT/HCPCS: 36415; 71045; 80053; 85025; 96360; 99285

== ENCOUNTER 2022-07-12 23:17 | Observation (INO) | payer MEDICARE ==
--- NOTE | 2022-07-12 23:52 | ED ---
Chest Pain HPI - General Chief Complaint: Chest Pain Stated Complaint: Chest Pain Time Seen by Provider: 07/12/22 23:20 Source: patient, EMS, RN notes reviewed Mode of arrival: EMS Limitations: no limitations - History of Present Illness Initial Comments: This is a pleasant 77-year-old male from [employer] she presents with chest pain. Patient also states he's got some pain in his pelvic region, generalized muscle aching, low backache. Patient states pain started about 7:30 PM and is mostly on the right side of his chest and doesn't radiate to the right arm. He states it is a fleeting, intermittent chest pain which is sharp in nature. No alleviating or exacerbating factors. No diaphoresis, patient has a history of diabetes mellitus, hypertension, hyperlipidemia and previous myocardial infarction. Pain in the testicular region and pelvic region is dull. No headache, no fever or chills, no changes in vision or hearing, no sore throat or difficulty with speech, no neck pain,, no abdominal pain, some nausea, no vomiting, no changes in urination or bowel movements, no numbness or tingling, no extremity pain, no skin rashes or lesions. Past medical, surgical, social, and family history reviewed. - Related Data Home Medications Medication Instructions Recorded Confirmed Atorvastatin [Lipitor] 10 mg PO HS 02/06/21 12/20/21 FLUoxetine HCL [PROzac] 20 mg PO DAILY 02/06/21 12/20/21 Tamsulosin HCl [Flomax] 0.4 mg PO HS 02/06/21 12/20/21 busPIRone HCL 15 mg PO BID 02/06/21 12/20/21 Healthshake 1 dose PO DAILY@1200 07/15/21 12/20/21 Melatonin 3 mg PO HS PRN 07/15/21 12/20/21 QUEtiapine [SEROquel] 25 mg PO HS 12/20/21 12/20/21 Sennosides-Docusate Sodium 2 tab PO BID 12/20/21 12/20/21 [Senokot-S] metFORMIN HCL [Glucophage] 500 mg PO DAILY 12/20/21 12/20/21 Previous Rx's Medication Instructions Recorded Acetaminophen Tab [Tylenol] 650 mg PO Q6HR PRN tab 04/09/21 Aspirin 81 mg PO DAILY tab 07/17/21 Famotidine [Pepcid] 20 mg PO DAILY #30 tablet 07/17/21 Clopidogrel [Plavix] 75 mg PO DAILY tab 12/24/21 Cyanocobalamin [Vitamin B-12] 1,000 mcg PO DAILY tab 12/24/21 traMADol HCL [Ultram] 100 mg PO Q8H 9 Days #24 tab 12/24/21 traMADol HCl [Ultram] 100 mg PO TID #9 tab 12/24/21 traZODone HCL [Desyrel] 50 mg PO HS tab 12/24/21 Allergies Allergy/AdvReac Type Severity Reaction Status Date / Time celecoxib [From Celebrex] Allergy Unknown Verified 12/20/21 17:09 erythromycin base Allergy Unknown Verified 12/20/21 17:09 iron Allergy Unknown Verified 12/20/21 17:09 nitroglycerin Allergy Unknown Verified 12/20/21 17:09 [From Nitro-Bid] penicillin G benethamine Allergy Unknown Verified 12/20/21 17:09 pentazocine [From Talwin] Allergy Unknown Verified 12/20/21 17:09 sulfamethoxazole Allergy Unknown Verified 12/20/21 17:09 [From Bactrim] trimethoprim [From Bactrim] Allergy Unknown Verified 12/20/21 17:09 Review of Systems ROS Statement: Those systems with pertinent positive or pertinent negative responses have been documented in the HPI. ROS Other: All systems not noted in ROS Statement are negative. EKG Findings - EKG Comments: EKG Findings:: EKG done at 2327 a independently interpreted by the ED attending physician shows baseline artifact with electronic atrial pacemaker. No definitive acute changes when compared to the previous study from December 2021. Patient does have some nonspecific T-wave inversions which are seen on the previous study. Intervals are normal. Rate 84. Past Medical History Past Medical History: Dementia, Diabetes Mellitus, Hyperlipidemia, Hypertension, Myocardial Infarction ([place]) Additional Past Medical History / Comment(s): back pain. Diabetes Type II diagnosed in 1956 - Diet controlled. [place] 2001 no stents. HTN for years Last Myocardial Infarction Date:: 2001 History of Any Multi-Drug Resistant Organisms: None Reported Past Surgical History: Back Surgery, Cholecystectomy, Pacemaker Additional Past Surgical History / Comment(s): right hand surgery from work injury, Pacemaker in 2018 - Dr Barry out of [facility] Back Surgery L 4 & L5 Dr Alvarado [facility]. Aortic Valve Repalcement - 2001 [facility] Past Anesthesia/Blood Transfusion Reactions: No Reported Reaction Type of Cardiac Device: Permanent Pacemaker Device Placement Date:: 2017 Past Psychological History: Anxiety, Depression Smoking Status: Former smoker Past Alcohol Use History: None Reported Past Drug Use History: None Reported Additional Drug Use History / Comment(s): marijuana 2 gummies daily or bid (20- 40mg daily) - Past Family History Brother(s) Family Medical History: Cancer Additional Family Medical History / Comment(s): from pancreatic ca 2017 Father Family Medical History: Diabetes Mellitus General Exam Limitations: no limitations General appearance: alert, in no apparent distress Head exam: Present: atraumatic, normocephalic, normal inspection Eye exam: Present: normal appearance, PERRL, EOMI. Absent: scleral icterus, conjunctival injection, periorbital swelling ENT exam: Present: normal exam, normal oropharynx, mucous membranes moist, normal external ear exam. Absent: mucous membranes dry Neck exam: Present: normal inspection, full ROM. Absent: tenderness, meningismus, lymphadenopathy Respiratory exam: Present: normal lung sounds bilaterally. Absent: respiratory distress, wheezes, rales, rhonchi, stridor Cardiovascular Exam: Present: regular rate, normal rhythm, normal heart sounds. Absent: systolic murmur, diastolic murmur, rubs, gallop, clicks GI/Abdominal exam: Present: soft, normal bowel sounds. Absent: distended, tenderness, guarding, rebound, rigid Rectal exam: Present: normal inspection, normal rectal tone, tenderness (Some tenderness in the perineum and tenderness in the prostate area on examination of the rectum) exam: Present: normal inspection, vertical testicular lie, circumcision. Absent: testicular tenderness, urethral discharge, scrotal swelling Extremities exam: Present: normal inspection, full ROM, normal capillary refill. Absent: tenderness, pedal edema, joint swelling, calf tenderness Back exam: Present: normal inspection Neurological exam: Present: alert, oriented X3, CN II-XII intact Psychiatric exam: Present: normal affect, normal mood Skin exam: Present: warm, dry, intact, normal color. Absent: rash Course Vital Signs 07/12/22 07/13/22 07/13/22 23:17 00:00 00:30 Temperature 98.7 F Pulse Rate 78 72 73 Respiratory 18 16 17 Rate Blood Pressure 105/61 105/61 88/64 O2 Sat by Pulse 95 Oximetry 07/13/22 07/13/22 01:22 03:08 Temperature Pulse Rate 71 Respiratory 18 Rate Blood Pressure 124/65 O2 Sat by Pulse 95 Oximetry - Reevaluation(s) Reevaluation #1: 07/13/22 00:02 Patient reevaluated, essentially pain free at this point Reevaluation #2: 07/13/22 01:00 Note the patient was given aspirin by EMS, 324 mg. Patient also had relief with nitroglycerin. Reevaluation #3: 07/13/22 01:26 Patient reevaluated and is pain free. Patient then adds that he has had intermittent discomfort in his pelvic region going on for quite some time. CT aortogram is pending. Reevaluation #4: 07/13/22 03:42 Patient endorsed to the ED attending physician at 3:42 AM. Still awaiting callback from the admitting physician, [facility] hospitalist group. Chest Pain MDM - MDM Was pt. sent in by a medical professional or institution? @ -detention records, EMS Did you speak to anyone other than the patient for history? @ -detention records, EMS Did you review nursing and triage notes? @ -Concur Were old charts reviewed? @ -detention records Differential Diagnosis? @ Differential Chest Pain: Stable Angina, Unstable Angina, STEMI, NSTEMI Aortic Dissection, Pneumothorax, Musculoskeletal, Esophageal Spasm GERD, Cholecystitis, Pancreatitis, Zoster, this is not meant to be an all-inclusive list. As for the patient's pelvic/testicular pain. This seems to be mostly in the perineal area. This does raise suspicion of prostatitis. Does not appear to be consistent with testicular torsion or orchitis. There is no erythema. No rash. No lesion. Patient does have some tenderness on prostate examination. EKG interpreted by me (3pts min.)? @ -Independent interpretation by me X-rays interpreted by me (1pt min.)? @ -1 view chest x-ray interpreted by me independently reveals no evidence of acute pathology. CT interpreted by me (1pt min.)? @ -CT aortogram interpreted by me shows no evidence of acute pathology. I did review the radiology interpretation which shows some lumbar degenerative disc disease and spondylolisthesis What testing was considered but not performed? (CT, X-rays, U/S, labs)? Why? @ I did consider a testicular ultrasound. However based on examination there is no evidence of testicular torsion. Cremasteric reflex is intact. No evidence of infectious process/Everardo's gangrene It sounds as if the patient is having more intermittent and recurrent pelvic pain which been going on for quite some time. Possibly related to the back. Does not appear to be consistent with prostatitis as the patient has had no fever, white blood cell count is normal. No evidence of pelvic pathology on computed tomography scan What meds were considered but not given? Why? @ -[none] Did you discuss the management of the patient with other professionals? @ -Case discussed with the APC from [facility] hospitalist group. Patient admitted to that service for further evaluation Did you reconcile home meds? @ -Pending Was smoking cessation discussed for >3mins.? @ -[none] Was critical care preformed (if so, how long)? @ -[none] Were there social determinants of health that impacted care today? How? (Homelessness, low income, unemployed, alcoholism, drug addiction, transportation, low edu. Level, literacy, decrease access to med. care, residential, rehab)? @ -Currently at a rehabilitation center post CVA Was there de-escalation of care discussed even if they declined? (Discuss DNR or withdrawal of care, Hospice)? @ -No What co-morbidities impacted this encounter? (DM, HTN, Smoking, COPD, CAD, Cancer, CVA, Hep., AIDS, mental health diagnosis, sleep apnea, morbid obesity)? @ -Diabetes mellitus, hypertension, CVA, cardiovascular disease Was patient admitted / discharged? @ -Patient admitted for further evaluation and repeat troponins, cardiology consultation Undiagnosed new problem with uncertain prognosis? @ -Chest pain, atypical Drug Therapy requiring intensive monitoring for toxicity (Heparin, Nitro, Insulin, Cardizem)? @ -[none] Were any procedures done? @ -[none] Diagnosis/symptom? @ -Chest pain, atypical, nonspecific pelvic pain Acute, or Chronic, or Acute on Chronic? @ -Acute Uncomplicated (without systemic symptoms) or Complicated (systemic symptoms)? @ -Complicated, possible systemic symptoms Side effects of treatment? @ -[none] Exacerbation, Progression, or Severe Exacerbation] @ -[no] Poses a threat to life or bodily function? @ -Possibly Disposition Clinical Impression: Chest pain, Pelvic pain in male, Chronic back pain Disposition: ADMITTED IP TO THIS HOSP Condition: Stable Is patient prescribed a controlled substance at d/c from ED?: No Referrals: Abisai Wilcox DO [Primary Care Provider] - 1-2 days Time of Disposition: 01:26 Decision to Admit Reason: Admit from EC Decision Time: 01:26
[2022-07-12 23:53] LABS: Basophils # (A) 0.1 k/uL (0-0.2); Basophils % (A) 1 %; Eosinophils # (A) 0.1 k/uL (0-0.7); Eosinophils % (A) 2 %; HCT 37.2 % (39.0-53.0); HGB 12.6 gm/dL (13.0-17.5); Lymphocytes # (A) 1.5 k/uL (1.0-4.8); Lymphocytes % (A) 21 %; MCH 29.8 pg (25.0-35.0); MCHC 33.8 g/dL (31.0-37.0); MCV 87.9 fL (80.0-100.0); Mean Platelet Volume 7.7; Monocytes # (A) 0.3 k/uL (0-1.0); Monocytes % (A) 4 %; Neutrophils # (A) 5.2 k/uL (1.3-7.7); Neutrophils % (A) 71 %; Platelet Count 271 k/uL (150-450); RBC 4.23 m/uL (4.30-5.90); RDW 14.1 % (11.5-15.5); WBC 7.4 k/uL (3.8-10.6)
[2022-07-13 00:13] LABS: Partial Thromboplastin Time 23.7 sec (22.0-30.0); Prothrombin Time 10.7 sec (9.0-12.0)
[2022-07-13 00:14] LABS: Total Protein 6.7 g/dL (6.3-8.2)
[2022-07-13 00:16] LABS: Calcium 9.1 mg/dL (8.4-10.2); Magnesium 1.9 mg/dL (1.6-2.3); Potassium 4.1 mmol/L (3.5-5.1); Total Bilirubin 0.3 mg/dL (0.2-1.3)
--- NOTE | 2022-07-13 00:18 | XR ---
EXAMINATION TYPE: XR chest 1V portable DATE OF EXAM: 07/13/2022 COMPARISON: 05/07/2022 HISTORY: Wrist pain TECHNIQUE: Renal FINDINGS: Heart is normal. Lungs are clear of infiltrate. No heart failure. There is left axillary pa cemaker. There are sternal wires. There are chest leads. Bony thorax is intact. IMPRESSION: No active cardiopulmonary disease. Normal heart. No change.
[2022-07-13] MEDS ORDERED: SODIUM CHLORIDE 0.9% 1,000 ML IV ONE (00:27)
--- NOTE | 2022-07-13 01:26 | CT ---
EXAMINATION TYPE: CT angio thor/abd pel aorta DATE OF EXAM: 07/13/2022 COMPARISON: Chest CT scan 07/16/2021 HISTORY: Chest pain CT DLP: 974.9 mGycm Automated exposure control for dose reduction was used. CONTRAST: The contrast was Isovue 100 mL.. There are Three-D postprocessed images. There is contrast opacification of the abdominal aorta and thoracic aorta. Ascending aorta measures u p to 3.7 cm. There is very minimal plaque formation in the descending thoracic aorta. No filling defe cts seen in the pulmonary arteries. No mediastinal adenopathy. Thoracic and lumbar vertebra appear intact. There is a mild retrolisthesis at L2-3. There is arterial flow in the celiac artery and superior mesenteric artery. There is arterial flow in the renal and il iac and femoral arteries. No evidence of aortic stenosis. No evidence of hemodynamic stenosis of the iliac and femoral arteries. There is rectal fecal impaction with rectum measuring 7 cm. No free fluid in the pelvis. No sign of ascites. There is mild renal cortical atrophy. IMPRESSION: There is atherosclerotic vascular disease. No evidence of arterial aneurysm or dissection. No evidenc e of hemodynamic arterial stenosis. Multilevel posterior fusion surgery in the lumbar spine with a mi ld retrolisthesis at L2-3.
[2022-07-13] MEDS ORDERED: NALOXONE 0.4 MG/ML 1 ML VIAL IV PRN (02:03)
[2022-07-13] MEDS ORDERED: DOCUSATE 100 MG CAP PO PRN (02:03)
[2022-07-13] MEDS ORDERED: ONDANSETRON 4 MG/2 ML VIAL IVP PRN (02:03)
[2022-07-13] MEDS ORDERED: LACTULOSE 20 GM/30 ML CUP PO PRN (02:03)
[2022-07-13] MEDS ORDERED: ACETAMINOPHEN TAB 325 MG TAB PO PRN (02:03)
[2022-07-13] MEDS ORDERED: DEXTROSE 50% SYRINGE 50 ML IVP PRN ×2 (02:07)
[2022-07-13 05:21] LABS: Appearance,Urine Clear (Clear); Bilirubin,Urine Negative (Negative); Blood,Urine Negative (Negative); Color,Urine Yellow; Glucose,Urine (UA) Negative (Negative); Ketones,Urine Negative (Negative); Leukocyte Esterase,Urine Negative (Negative); Nitrite,Urine Negative (Negative); Protein,Urine Trace (Negative); Urobilinogen,Urine <2.0 mg/dL (<2.0)
[2022-07-13 06:01] LABS: Specific Gravity,Urine >1.050 (1.001-1.035)
[2022-07-13 06:02] LABS: Glucose,Whole Blood 78 mg/dL (70-110)
[2022-07-13] MEDS: INSULIN ASPART (NovoLOG) 100 UNIT/ML VIAL SQ SCH ×4 (06:06→20:57)
[2022-07-13] MEDS: ASPIRIN 81 MG PO SCH (09:25)
[2022-07-13] MEDS: HEPARIN SODIUM,PORCINE/PF 5,000 UNIT/0.5 ML SYRINGE SQ SCH ×2 (09:25→20:44)
--- NOTE | 2022-07-13 11:39 | HP ---
HISTORY AND PHYSICAL CHIEF COMPLAINT: Chest pain. HISTORY OF PRESENT ILLNESS: This is a 77-year-old gentleman with a past medical history of multiple medical problems including diabetes mellitus and dementia, who is a resident of [facility], is complaining of retrosternal chest pain. The patient also has some muscle headaches and low back pain, otherwise multiple symptomatology. The patient came to [facility] for further evaluation and treatment. The troponins are negative so far. There is no history of any fever, rigors, or chills. PAST MEDICAL HISTORY: Dementia, diabetes mellitus. The rest of the history and rest of the chart is also reviewed. HOME MEDICATIONS: Reviewed include trazodone, rest of the medications and doses etc. are reviewed. ALLERGIES: Reviewed include head tremors and rest of the allergies reviewed. FAMILY HISTORY: History of cancer. SOCIAL HISTORY: The patient smokes. REVIEW OF SYSTEMS: A 14-point review of systems is negative except as mentioned earlier. PHYSICAL EXAMINATION: VITAL SIGNS: Pulse 73, blood pressure 130/70, respirations 16. HEENT: Conjunctivae normal. NECK: No JVD. CARDIOVASCULAR: S1, S2. RESPIRATIONS: Breath sounds diminished at the bases. A few scattered rhonchi. ABDOMEN: Soft, nontender. LEGS: No edema. No swelling. NERVOUS SYSTEM: No focal deficits. LABORATORY DATA: Reviewed. ASSESSMENT: 1. Chest pain, possible unstable angina. 2. Diabetes mellitus, type 2. 3. History of pacemaker. 4. Hypertension. 5. Hyperlipidemia. 6. Dementia. 7. Multiple medical issues. RECOMMENDATIONS AND DISCUSSION: This is a 77-year-old gentleman, who presented with multiple complex medical issues. We will monitor the patient closely. Cardiology consultation. Otherwise, I would recommend to continue the home medications. Symptomatic treatment. Repeat labs. Prognosis guarded because of multiple complex medical issues. Further recommendations to follow. MMODL / IJN: [id number] /
--- NOTE | 2022-07-13 11:43 | CA ---
Transthoracic Echo Report Name: Tommie Smith Age: 77 Gender: M : 1945 Exam Date: 07/13/2022 11:09 Exam Location: [facility] Ht (in): 64 Wt (lb): 140 Ordering Physician: Lul Martin MD ([id number]) Attending/Referring Phys: Mario AMEZCUA Senior Planner Bridgett Boss RDCS Procedure CPT: Indications: Chest Pain Cardiac Hx: Technical Quality: Fair Contrast 1: Total Dose (mL): Contrast 2: Total Dose (mL): MEASUREMENTS (Male / Female) Normal Values 2D ECHO LV Diastolic Diameter PLAX 3.7 cm 4.2 - 5.9 / 3.9 - 5.3 cm LV Systolic Diameter PLAX 2.3 cm IVS Diastolic Thickness 1.2 cm 0.6 - 1.0 / 0.6 - 0.9 cm LVPW Diastolic Thickness 1.1 cm 0.6 - 1.0 / 0.6 - 0.9 cm LV Relative Wall Thickness 0.6 RV Internal Dim ED PLAX 3.2 cm LA Volume 25.3 cm??? 18 - 58 / 22 - 52 cm??? M-MODE Aortic Root Diameter MM 3.2 cm LA Systolic Diameter MM 3.5 cm LA Ao Ratio MM 1.1 AV Cusp Separation MM 1.8 cm DOPPLER AV Peak Velocity 153.5 cm/s AV Peak Gradient 9.4 mmHg LVOT Peak Velocity 71.9 cm/s LVOT Peak Gradient 2.1 mmHg MV Area PHT 2.9 cm??? Mitral E Point Velocity 91.8 cm/s Mitral A Point Velocity 91.8 cm/s Mitral E to A Ratio 1.0 MV Deceleration Time 263.7 ms MV E' Velocity 9.8 cm/s Mitral E to MV E' Ratio 9.3 TR Peak Velocity 246.3 cm/s TR Peak Gradient 24.3 mmHg Right Ventricular Systolic Press 28.6 mmHg FINDINGS Left Ventricle Mildly increased septal wall thickness. Abnormal (paradoxical) septal motion consistent with postoperative state. No obvious regional wall motion abnormalities. Left ventricular ejection fraction is estimated at 55 %. Right Ventricle Normal right ventricular size and function. Right ventricular systolic pressure within normal limits. Right Atrium Normal right atrial size. Left Atrium Normal left atrial size. Mitral Valve Mild thickening/calcification of the anterior mitral valve leaflet. Mild mitral annular calcification. No mitral stenosis. No mitral regurgitation. Aortic Valve No aortic valve stenosis or regurgitation. No aortic stenosis. Tricuspid Valve Mild tricuspid regurgitation. Pulmonic Valve Trace pulmonic regurgitation. Pericardium No pericardial effusion. Aorta Normal size aortic root and proximal ascending aorta. CONCLUSIONS Normal LV systolic function Previewed by: Dr. Lul Martin MD (Electronically Signed) Final Date: 13 July 2022 11:42
--- NOTE | 2022-07-13 12:21 | CONS ---
CONSULTATION CHIEF COMPLAINT: Chest pain. 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, has history of aortic valve replacement in 2001, hypertension, dyslipidemia, diabetes, and has had a permanent pacemaker placement. He presents to hospital complaining of discomfort practically all over his body, primarily in his back, but also complained of some chest pain for which Cardiology has been consulted. At the time of my evaluation this morning, he appears comfortable at rest and is free of symptoms. Vital signs are stable. Three sets of cardiac enzymes are negative. An EKG shows paced rhythm with nonspecific ST-T wave changes. His white cell count is normal. Hemoglobin is normal. Creatinine is 0.9. The patient's chest discomfort is sharp, atypical and probably noncardiac. I will obtain a 2D echo to assess his aortic valve. He had a CT scan of the thoracic aorta that is negative for any aneurysmal dissection. PAST MEDICAL HISTORY: Significant for aortic valve replacement, [id number] diabetes, hypertension, and dyslipidemia. MEDICATIONS: As charted. ALLERGIES: As charted. FAMILY HISTORY: Negative for premature coronary artery disease. SOCIAL HISTORY: Negative for smoking, EtOH abuse, or drug abuse. REVIEW OF SYSTEMS: A review of systems has been performed, pertinents are as documented. PHYSICAL EXAMINATION: VITAL SIGNS: Afebrile, heart rate is 73 beats per minute, blood pressure is 130/72, respiratory rate is 18, and O2 saturation is 97% on room air. NECK: There is no jugular venous distention. Carotid upstroke is normal. There is no bruit. CHEST: Reveals good air entry bilaterally. HEART: Reveals first and second heart sounds. No gallop. Has an ejection systolic murmur in the aortic area. ABDOMEN: Soft. EXTREMITIES: Did not reveal any edema. Peripheral pulses are felt. LABS: Negative for ischemia. ASSESSMENT: 1. Atypical chest pain. 2. Aortic stenosis, status post aortic valve replacement. 3. Status post permanent pacemaker. PLAN: Continue the patient on his current medications. I will check an echocardiogram on him and do blood cultures given the history of aortic valve replacement. The patient's chest discomfort is sharp, atypical, we should consider doing an outpatient stress test on him. MMODL / IJN: [id number] /
[2022-07-13 13:21] LABS: Glucose,Whole Blood 110 mg/dL (70-110)
[2022-07-13 17:49] LABS: Glucose,Whole Blood 106 mg/dL (70-110)
[2022-07-13] MEDS: QUEtiapine 25 MG TAB PO SCH (20:44)
[2022-07-13] MEDS: ATORVASTATIN 10 MG TAB PO SCH (20:44)
[2022-07-13 20:58] LABS: Glucose,Whole Blood 123 mg/dL (70-110)
[2022-07-14 06:17] LABS: Glucose,Whole Blood 83 mg/dL (70-110)
[2022-07-14] MEDS: INSULIN ASPART (NovoLOG) 100 UNIT/ML VIAL SQ SCH ×4 (06:17→21:39)
[2022-07-14] MEDS: HEPARIN SODIUM,PORCINE/PF 5,000 UNIT/0.5 ML SYRINGE SQ SCH ×2 (09:35→21:38)
[2022-07-14] MEDS: ASPIRIN 81 MG PO SCH (09:36)
[2022-07-14 11:39] LABS: Basophils # (A) 0.08 X 10*3/uL (0.00-0.10); Basophils % (A) 1.4 %; Eosinophils % (A) 3.4 %; HCT 37.2 % (39.6-50.0); Immature Grans, Automated 0.3 %; Lymphocytes # (A) 2.24 X 10*3/uL (0.90-5.00); Lymphocytes % (A) 38.1 %; MCH 28.7 pg (27.0-32.0); MCHC 32.3 g/dL (32.0-37.0); Mean Platelet Volume 9.4 fL (9.5-12.2); Monocytes # (A) 0.53 X 10*3/uL (0.20-1.00); NRBC Per 100 WBC 0 /100 WBCS (0.0-0.0); Neutrophils # (A) 2.81 X 10*3/uL (1.80-7.70); Neutrophils % (A) 47.8 %; Platelet Count 277 X 10*3/uL (140-440); RBC 4.18 X 10*6/uL (4.40-5.60); RDW 14.5 % (11.5-14.5); WBC 5.88 X 10*3/uL (4.50-10.00)
[2022-07-14 11:51] LABS: African American GFR (CKD) 93.1 (60.0-200.0); Anion Gap 9.1 mmol/L (10.00-18.00); BUN/Creat Ratio 11.96 Ratio (12.00-20.00); Blood Urea Nitrogen 10.9 mg/dL (9.0-27.0); Carbon Dioxide 27.2 mmol/L (20.0-27.5); Non-African American GFR(CKD) 80.3 (60.0-200.0); Potassium 4.4 mmol/L (3.5-5.5)
[2022-07-14 13:03] LABS: Glucose,Whole Blood 105 mg/dL (70-110)
[2022-07-14] MEDS ORDERED: HYDROmorphone 0.5 MG/0.5 ML SYRINGE IVP PRN (14:47)
[2022-07-14] MEDS ORDERED: HYDROcodone/APAP 5-325MG 1 EACH TAB PO PRN (14:48)
[2022-07-14 17:52] LABS: Glucose,Whole Blood 100 mg/dL (70-110)
--- NOTE | 2022-07-14 20:04 | PN ---
PROGRESS NOTE SUBJECTIVE: A 77-year-old gentleman with history of aortic valve replacement, hypertension, dyslipidemia, diabetes, and permanent pacemaker, who presented to hospital with atypical chest pain. He had an echocardiogram done yesterday, that revealed normal LV systolic function and normally-appearing aortic valve. This morning, the patient is doing well, chest pain-free. OBJECTIVE: GENERAL: Comfortable at rest. VITAL SIGNS: Stable. NECK: There is no jugular venous distention. CHEST: Reveals good air entry bilaterally. HEART: Reveals first and second heart sounds. No gallop. No murmur. ABDOMEN: Soft and nontender. EXTREMITIES: Did not reveal any edema. Peripheral pulses are felt. ASSESSMENT: 1. Atypical chest pain. 2. History of valve replacement. 3. Hypertension. 4. Dyslipidemia. 5. Dementia. PLAN: The patient is doing well. Continue current medications. Hopefully, discharge back to the longterm tomorrow. MMODL / NEDAN: [id number] /
[2022-07-14 20:15] LABS: Glucose,Whole Blood 103 mg/dL (70-110)
[2022-07-14] MEDS: ATORVASTATIN 10 MG TAB PO SCH (21:38)
[2022-07-14] MEDS: QUEtiapine 25 MG TAB PO SCH (21:39)
--- NOTE | 2022-07-14 22:40 | PN ---
PROGRESS NOTE DATE OF SERVICE: 07/14/2022 SUBJECTIVE: This is a 77-year-old gentleman who was admitted with chest pain. He has been closely monitored at this time. Cardiology following the patient closely. The 2D echo with Doppler which I reviewed personally showed normal LV systolic function. OBJECTIVE: VITAL SIGNS: Pulse 67, blood pressure 100/62, respirations 18. CHEST: Clear to auscultation. CARDIOVASCULAR: S1 and S2. ABDOMEN: Soft. NERVOUS SYSTEM: Nonfocal. LABS: Reviewed. ASSESSMENT: 1. Chest pain, possible unstable angina. 2. Diabetes mellitus, type 2. 3. History of aortic stenosis, status post aortic valve replacement. 4. Pacemaker. 5. Hypertension. 6. Hyperlipidemia. 7. History of dementia. 8. Multiple medical issues. RECOMMENDATIONS: I recommend to continue current medications and symptomatic treatment. Otherwise, continue the home medications and return to possibly ECF tomorrow. PROGNOSIS: Guarded. Further recommendations to follow. YAYA / NEDAN: [id number] /
[2022-07-15 06:02] LABS: Glucose,Whole Blood 93 mg/dL (70-110)
[2022-07-15] MEDS: INSULIN ASPART (NovoLOG) 100 UNIT/ML VIAL SQ SCH ×2 (06:16→13:53)
[2022-07-15 08:11] VITALS: BP 130/72; PULSE 71; RESP 18; TEMP 97.8
--- NOTE | 2022-07-15 09:19 | PN ---
PROGRESS NOTE SUBJECTIVE: A 77-year-old gentleman with history of valve replacement, came to hospital with chest pain, ruled out for myocardial infarction. This morning, he is doing well and is free of symptoms. PHYSICAL EXAMINATION: GENERAL: He is comfortable at rest. VITAL SIGNS: Stable. CHEST: Reveals good air entry bilaterally. HEART: Reveals first and second heart sounds. Systolic murmur at the apex. ABDOMEN: Soft. EXTREMITIES: Do not reveal any edema. Peripheral pulses are felt. LABORATORY DATA: Troponins have been negative. ASSESSMENT: 1. Atypical chest pain. 2. History of valve replacement. 3. Confusional state. No further cardiac workup at this time. The patient is [facility] MMODL / IJN: [id number] /
[2022-07-15] MEDS: ASPIRIN 81 MG PO SCH (11:12)
[2022-07-15] MEDS: HEPARIN SODIUM,PORCINE/PF 5,000 UNIT/0.5 ML SYRINGE SQ SCH (11:12)
[2022-07-15 13:11] LABS: Glucose,Whole Blood 151 mg/dL (70-110)
--- NOTE | 2022-07-15 13:56 | P.DS ---
Providers Date of admission: 07/13/22 03:35 Expected date of discharge: 07/15/22 Attending physician: Unruly Aguilar MD Consults: 07/13/22 02:03 Consult Physician Urgent Consulting Provider: Tk Krishnan Consult Reason/Comments: Chest pain Do you want consulting provider notified?: Yes, Notify in am Primary care physician: Abisai Wilcox [facility] Course: Final diagnosis Chest pain, possible unstable angina, ACS ruled out Diabetes mellitus, type II History of aortic stenosis, status post aortic valve replacement Pacemaker Hypertension Hyperlipidemia History of dementia History of anxiety/depression GI prophylaxis DVT prophylaxis Full code Discharge disposition Patient is being discharged in a stable condition with guarded prognosis to [facility]. Patient will follow-up with Dr. Wilcox in the outpatient setting upon discharge. Patient is to follow-up outpatient cardiology as scheduled to discuss possible stress testing in the outpatient setting. Total time taken is greater than 35 minutes. Hospital course This is a 77-year-old male who was recently admitted with chest pain with cardiology following. 2-D echo revealed a normal LV systolic function cardiology recommending continuing current medications and outpatient follow-up for possible stress testing. Patient has had negative troponins and will be going back to [facility]. Patient is reporting a headache and recommend he use Tylenol and/or low-dose pain medication and hold Imdur for now. Currently no reports of chest pain, shortness of breath, or palpitations. Patient is afebrile. No reports of nausea or vomiting and patient is tolerating diet. Patient will be going to [facility] today. Guarded prognosis Physical exam: Gen: This is a 77-year-old male who is awake, alert and oriented 3, well- developed, well-nourished. HEENT: Head is atraumatic, normocephalic. Pupils equal, round. Sclerae is anicteric. NECK: Supple. No JVD. No lymphadenopathy. No thyromegaly. LUNGS: Clear to auscultation. No wheezes or rhonchi. No intercostal retractions. HEART: S1, S2 are muffled ABDOMEN: Soft. Bowel sounds are present. No masses. No tenderness. EXTREMITIES: No pedal edema. No calf tenderness. NEUROLOGICAL: Patient is awake, alert and oriented x3. Cranial nerves 2 through 12 are grossly intact. Diffusely weak Please refer to medication reconciliation sheet for a list of medications. The impression and plan of care has been dictated by Shannan Vega, Nurse Practitioner as directed. Dr. Rafi MD I have performed a history and examination and MDM of this patient, discussed the same with the dictator, and agree with the dictator's assessment and plan as written ,documented as a scribe. Based on total visit time, I have performed more than 50% of the visit. Patient Condition at Discharge: Stable Plan - Discharge Summary New Discharge Prescriptions: New HYDROcodone/APAP 5-325MG [[place] 5-325] 0.5 each PO Q6HR PRN #4 tab PRN Reason: Moderate To Severe Pain (4-10) QUEtiapine [SEROquel] 25 mg PO HS tab Lactulose [Cephulac] 20 gm PO DAILY PRN ml PRN Reason: Constipation Docusate [Colace] 100 mg PO BID PRN cap PRN Reason: Constipation Continue Tamsulosin HCl [Flomax] 0.4 mg PO HS Acetaminophen Tab [Tylenol] 650 mg PO Q6HR PRN tab PRN Reason: Fever And/ Or Pain Healthshake 1 dose PO TID Aspirin 81 mg PO DAILY tab Famotidine [Pepcid] 20 mg PO DAILY #30 tablet Sennosides-Docusate Sodium [Senokot-S] 2 tab PO BID traZODone HCL [Desyrel] 50 mg PO HS tab Cholecalciferol [Vitamin D3 (25 Mcg = 1000 Iu)] 50 mcg PO DAILY Atorvastatin [Lipitor] 10 mg PO HS FLUoxetine HCL [PROzac] 20 mg PO DAILY Melatonin 3 mg PO HS PRN PRN Reason: Insomnia metFORMIN HCL [Glucophage] 500 mg PO DAILY Clopidogrel [Plavix] 75 mg PO DAILY tab Cyanocobalamin [Vitamin B-12] 1,000 mcg PO DAILY tab Metoprolol Tartrate [Lopressor] 12.5 mg PO BID Carboxymethylcellulose Sodium [Refresh Tears] 1 drop BOTH EYES QID bisacodyL [Bisacodyl] 10 mg PO DAILY PRN PRN Reason: Constipation Discontinued Isosorbide Mononitrate ER [Imdur] 30 mg PO HS traMADol HCL [Ultram] 100 mg PO Q8H 9 Days #24 tab Discharge Medication List Atorvastatin [Lipitor] 10 mg PO HS 02/06/21 [History] FLUoxetine HCL [PROzac] 20 mg PO DAILY 02/06/21 [History] Tamsulosin HCl [Flomax] 0.4 mg PO HS 02/06/21 [History] Acetaminophen Tab [Tylenol] 650 mg PO Q6HR PRN tab 04/09/21 [Rx] Healthshake 1 dose PO TID 07/15/21 [History] Melatonin 3 mg PO HS PRN 07/15/21 [History] Aspirin 81 mg PO DAILY tab 07/17/21 [Rx] Famotidine [Pepcid] 20 mg PO DAILY #30 tablet 07/17/21 [Rx] Sennosides-Docusate Sodium [Senokot-S] 2 tab PO BID 12/20/21 [History] metFORMIN HCL [Glucophage] 500 mg PO DAILY 12/20/21 [History] Clopidogrel [Plavix] 75 mg PO DAILY tab 12/24/21 [Rx] Cyanocobalamin [Vitamin B-12] 1,000 mcg PO DAILY tab 12/24/21 [Rx] traZODone HCL [Desyrel] 50 mg PO HS tab 12/24/21 [Rx] Carboxymethylcellulose Sodium [Refresh Tears] 1 drop BOTH EYES QID 07/13/22 [History] Cholecalciferol [Vitamin D3 (25 Mcg = 1000 Iu)] 50 mcg PO DAILY 07/13/22 [History] Metoprolol Tartrate [Lopressor] 12.5 mg PO BID 07/13/22 [History] bisacodyL [Bisacodyl] 10 mg PO DAILY PRN 07/13/22 [History] Docusate [Colace] 100 mg PO BID PRN cap 07/15/22 [Rx] HYDROcodone/APAP 5-325MG [[place] 5-325] 0.5 each PO Q6HR PRN #4 tab 07/15/22 [Rx] Lactulose [Cephulac] 20 gm PO DAILY PRN ml 07/15/22 [Rx] QUEtiapine [SEROquel] 25 mg PO HS tab 07/15/22 [Rx] Follow up Appointment(s)/Referral(s): Abisai Wilcox DO [Primary Care Provider] - 1-2 days Activity/Diet/Wound Care/Special Instructions: Patient is returning to [facility] Activity as tolerated Follow-up primary care provider on discharge Follow-up cardiology outpatient to discuss stress testing Continue taking medications as prescribed Continue monitoring blood sugars before meals and at bedtime Continue consistent carb heart healthy diet Discharge Disposition: TRANSFER TO SNF/ECF
== END 2022-07-15 15:50 ==
LOC: EC 23:17 → 6NMEDSUR 07-13 03:35
PROVIDERS: ADMIT Internal Medicine; ATTEND Internal Medicine
DX: R07.89 Other chest pain (principal); I25.10 Atherosclerotic heart disease of native coronary artery without angina pectoris; R10.2 Pelvic and perineal pain; E11.9 Type 2 diabetes mellitus without complications; I10 Essential (primary) hypertension; E78.5 Hyperlipidemia, unspecified; F03.90 Unspecified dementia, unspecified severity, without behavioral disturbance, psychotic disturbance, mood disturbance, and anxiety; I25.2 Old myocardial infarction; R51.9 Headache, unspecified; N50.819 Testicular pain, unspecified; G89.29 Other chronic pain; M51.36 Other intervertebral disc degeneration, lumbar region; M43.16 Spondylolisthesis, lumbar region; F32.A Depression, unspecified; F41.9 Anxiety disorder, unspecified; F17.200 Nicotine dependence, unspecified, uncomplicated; Z79.84 Long term (current) use of oral hypoglycemic drugs; Z79.899 Other long term (current) drug therapy; Z79.82 Long term (current) use of aspirin; Z79.02 Long term (current) use of antithrombotics/antiplatelets; Z95.0 Presence of cardiac pacemaker; Z90.49 Acquired absence of other specified parts of digestive tract; Z95.2 Presence of prosthetic heart valve; Z98.890 Other specified postprocedural states; Z86.73 Personal history of transient ischemic attack (TIA), and cerebral infarction without residual deficits; Z98.1 Arthrodesis status; Z80.0 Family history of malignant neoplasm of digestive organs; Z83.3 Family history of diabetes mellitus
CPT/HCPCS: 96372 ×3; 96360; 99285; 36415 ×2; 93005; 93306; 97162; 97167; 83880; 80053; 80048; 83735; 84484 ×3; 85025 ×2; 85610; 85730; 81003; 87040; 83036; 71045; 71275; 74174; G0378 ×3; Q9967; J1644 ×3

== ENCOUNTER → 2023-04-11 | Outpatient (CLI) | payer MEDICARE ==
--- NOTE | 2023-04-11 11:56 | CT ---
EXAMINATION TYPE: CT brain wo/w con DATE OF EXAM: 04/11/2023 COMPARISON: 12/24/2021. HISTORY: Fall. CT DLP: 2128.7 mGycm Automated exposure control for dose reduction was used. CONTRAST: CT scan of the head is performed with IV Contrast, patient injected with 100 mL of Isovue 300. FINDINGS: There is no acute intracranial hemorrhage, mass, mass effect, midline shift, extra-axial fluid collec tion or hydrocephalus. There is diffuse cerebral and cerebellar atrophy. There is hypoattenuation seen within the periventricular, subcortical and deep white matter which is compatible with chronic ischemic small vessel disease. No enhancing lesions are identified. The visualized paranasal sinuses and mastoid air cells are clear. IMPRESSION: 1. No acute process. 2. No enhancing lesions. 3. Chronic changes.
== END | disposition home or self-care (01) ==
LOC: RADCTMAIN 10:43
PROVIDERS: ATTEND Family Medicine
DX: I63.9 Cerebral infarction, unspecified (principal); F01.50 Vascular dementia, unspecified severity, without behavioral disturbance, psychotic disturbance, mood disturbance, and anxiety; F06.0 Psychotic disorder with hallucinations due to known physiological condition
CPT/HCPCS: 70470; Q9967

== ENCOUNTER → 2024-01-28 | Outpatient (CLI) | payer MEDICARE, OTHER ==
[2024-01-28 10:53] LABS: African American GFR (CKD) 82 (>60 ml/min/1.73 sqM); Blood Urea Nitrogen 23 mg/dL (9-20); Non-African American GFR(CKD) 71 (>60 ml/min/1.73 sqM)
--- NOTE | 2024-01-28 12:02 | CT ---
EXAMINATION TYPE: CT abdomen w con CT DLP: 1591 mGycm, Automated exposure control for dose reduction was used. DATE OF EXAM: 01/28/2024 11:42 AM COMPARISON: CTA thoracoabdominal pelvis aorta 07/13/2022, CTA chest 07/16/2021. CLINICAL INDICATION:Male, 78 years old with history of R93.2 ABNORMAL FINDINGS ON DX IMAGING OF LIVER AND; Liver mass TECHNIQUE: Multiphase CT of the abdomen following the administration of 100 cc of Isovue 300 IV cont rast material and oral contrast. Coronal and sagittal reformats were performed. FINDINGS: LOWER CHEST: Posterior dependent subsegmental atelectasis is noted. Bilateral gynecomastia. Partial v isualization of cardiac pacemaking leads. Aortic valvular calcifications. Elevation of the right mary diaphragm. ABDOMEN LIVER: Nontraumatic morphology. Tiny anterior right hepatic lobe 4 mm nonenhancing lesion most consis tent with a cyst (series 9, image 25). Stable dating back to 2020. No arterial enhancing lesion. GALLBLADDER AND BILE DUCTS: The gallbladder is surgically absent. No biliary ductal dilatation. PANCREAS: Unremarkable. SPLEEN: Unremarkable. ADRENAL GLANDS: Unremarkable. KIDNEYS AND URETERS: No evidence of hydronephrosis. Nonobstructive bilateral renal calculi with large st in the left kidney measuring up to 6 mm. The kidneys enhance symmetrically. Cortical thinning of b oth kidneys with mild perinephric fat stranding bilaterally. Right superior pole 3.7 additional exoph ytic cysts involving the superior pole of the right kidney measuring up to 1.7 cm renal cyst. Contras t is demonstrated within both collecting systems on the delayed phase. STOMACH AND BOWEL: Stomach and duodenum are unremarkable. Enteric contrast reaches the mid small john l. Distal colonic diverticulosis identified. No evidence of bowel obstruction. PERITONEUM: No evidence of pneumoperitoneum or free fluid. VASCULATURE: Moderate atherosclerotic calcifications are present throughout the abdominal aorta and i ts branches. Mural thrombus identified throughout the visualized abdominal aorta. No visualized aorti c aneurysm. MUSCULOSKELETAL: No acute osseous abnormalities. Median sternotomy wires. Postsurgical changes with b ilateral pedicle screws and rods and laminectomy defect involving the visualized L3-L4 vertebral bodi es. There is fusion of the L2-L3 vertebral bodies. With mild retrolisthesis at this level. Disc fusio n cage at L3-L4. LYMPH NODES: No gross evidence for lymphadenopathy. SOFT TISSUE/ABDOMINAL WALL: Unremarkable IMPRESSION: 1. Stable 4 mm right hepatic lobe cyst dating back to 2020. No enhancing hepatic lesions identified. 2. Colonic diverticulosis without evidence for acute diverticulitis. 3. Nonobstructive bilateral renal calculi. 4. Right renal cysts.
== END | disposition home or self-care (01) ==
LOC: RADCTMAIN 10:06
PROVIDERS: ATTEND Family Medicine
DX: R93.2 Abnormal findings on diagnostic imaging of liver and biliary tract (principal); K57.30 Diverticulosis of large intestine without perforation or abscess without bleeding; K76.89 Other specified diseases of liver; N20.0 Calculus of kidney; N28.1 Cyst of kidney, acquired
CPT/HCPCS: 82565; 84520; 74160; 36415; Q9967